=== PATIENT | male | born 1980 | race Caucasian/White ===

== ENCOUNTER 2018-03-06 09:53 | Emergency (ER) | payer MEDICARE, SELFPAY ==
[2018-03-06 09:59] VITALS: BP 140/94; PULSE 105; RESP 20; TEMP 36.5; O2SAT 98
--- NOTE | 2018-03-06 10:23 | W.ED.GENAD ---
Discharge Plan Disposition Patient Disposition: HOME Condition: Improving Discharge Details Chief Complaint: Cellulitis Clinical Impression: Abscess of wrist, Cellulitis of wrist Primary Care Provider: Rosy Quinones ED Provider: Elizabeth Hopkins Home Meds and New Rx's Prescriptions: New clindamycin HCl 150 mg capsule 450 mg PO TID Qty: 63 RF: 0 Continued risperidone 4 MG tablet 8 mg PO BID RF: 0 Discharge Instructions Instructions: Cellulitis (ED), Abscess (ED) Additional Instructions: Keep wound clean, dry, covered. Tylenol and ibuprofen as needed for discomfort. Please elevate extremity to help with swelling and discomfort. Please take antibiotics as prescribed. Even if symptoms improve, please take the entire course. You have an appointment with primary care on Friday at 5:15 PM with Andreas Hahn for reevaluation. If you are unable to make this appointment, please call the office to reschedule [phone] If you develop spreading of the redness, fevers or chills, increased pain or the new/worsening symptoms please seek care urgently once again. Referrals: Rosy Quinones [Primary Care Provider] - Discharge Data Discharge Date/Time-TO BE ENTERED AT DEPARTURE: 03/06/18 11:48 Medical Decision Making This is a 37-year-old wgpso-xolp-nikftqoy male presenting today with chief complaint of erythema, swelling and pain over the radial side of the left wrist. He reports that one week ago he injected Suboxone onto the radial aspect of the right afflicted wrist. Noted over the past few days increasing discomfort and swelling. States that when he woke this morning he noted a focal area of swelling, clinically consistent with an abscess, over the radial aspect of the left wrist. He denies any fevers or chills. No chest pain. Denies any recent illness. States that he had similar infection in the left AC recently which opened spontaneously. No streaking. No systemic illness. Exam, patient has a localized area of erythema and fluctuance over the radial side of the left wrist. Swelling does extend over the dorsal aspect of the hand, erythema is localized over the wrist and does not extend into the hand. No swelling or abnormality over the volar side. This does seem to spare the forearm. I do not see any proximal migration of symptoms. Passive range of motion of all of his digits are without any acute findings. Patient tolerates this well. Plan to drain the abscess. I did evaluate this with an ultrasound I do see a focal area of fluid collection. Discussed this plan with the patient. He has had this completed in the past and is well aware of the procedure. Patient is allergic to penicillins and sulfa drugs. Discussed risks/benefit of I&D procedure as well as expected procedural steps. He voices understanding and wishes to proceed. Please see procedure note, this was performed using standard sterile technique. Loculations were broken up with clamp, abscess was irrigated. Copious amounts of pus was draining from the wound. He tolerated this well. Sterile dressing was placed over the Patient will be placed on oral clindamycin. Patient and I discussed wound care in depth. Advised that he elevate his extremity. He was given very strict return precuations. He is able to return urgently if symptoms owrsen. He will keep current dressing on utnil tomorrow, was given dressing instructions. Advised he wash with soap and water. Contacted PCP for appointment for wound check. Tylenol and/or Motrin as needed for discomfort. Will take abx as advised. Patient plans to discuss his addiction issues further with his PCP, reports he will not inject any further. All of his quesitons and concerns were addressed, he is in agreement with this plan. HPI General Mode of arrival: ambulatory. Date/Time Provider Initiated Documentation: 03/06/18 10:07. Limitations to Documentation: no limitations. Information obtained by: patient. History of Present Illness 37 year old M presents to the emergency department with the chief complaint of infection left wrist, described as severe, with intensity rated at 10. Quality is described as aching, and is localized to the left and upper extremity. Patient reports no radiation. Patient started experiencing this day(s) and it has been constant. No relieving factors improve symptom(s), Movement worsens symptoms . Patient notes rash; denies chest pain, cough, fever/chills and nausea/vomiting. Patient did receive the following treatments prior to arrival, none Related Data Home Medications Medication Instructions Recorded Confirmed risperidone 8 mg PO BID 12/26/15 03/06/18 clindamycin HCl 450 mg PO TID #63 cap 03/06/18 Previous Rx's Medication Instructions Recorded clindamycin HCl 450 mg PO TID #63 cap 03/06/18 Allergies Allergy/AdvReac Type Severity Reaction Status Date / Time amoxicillin Allergy Severe Anaphylaxsi Unverified 12/26/15 15:41 s Penicillins Allergy Severe Anaphylaxsi Unverified 12/26/15 15:41 s shrimp Allergy Severe Anaphylaxsi Unverified 12/26/15 15:41 s Sulfa (Sulfonamide Allergy Unverified 03/06/18 10:03 Antibiotics) aspirin AdvReac Mild Unverified 12/26/15 15:41 General Stated Complaint: Cellulitis CHAVEZ: 3 Review of Systems Constitutional Reports as per HPI, Denies chills and Denies fever(s) Cardiovascular Reports as per HPI Respiratory Reports as per HPI Musculoskeletal Reports as per HPI Integumentary/Breasts Reports as per HPI Neurologic Reports as per HPI, Denies sensory deficit and Denies paresthesias [facility] Social History Smoking/Tobacco Use Status: Current every day Exam Const General: cooperative, healthy appearing, comfortable, no acute distress and well developed Nutritional Appearance: average body habitus and well nourished Orientation: alert and awake Resp Effort & Inspection: normal respiratory effort, able to speak in complete sentences and no respiratory distress Auscultation: clear to auscultation bilaterally Cardio Rate: regular rate Rhythm: regular rhythm Heart Sounds: S1 normal and S2 normal Neuro General: alert and awake Cognition: normal cognition Speech: speech normal Gait: normal gait Sensory Exam: no sensory deficits noted Extrem Left upper extremity: full ROM (passive ROM without significant pain. Pain greater with active ROM), normal capillary refill, edema (to dorsal hand, no erythema over this area. Fingers spared) and wrist Details: abnormal to inspection Details: erythema, tenderness Location: of the distal radius, swelling Location: of the dorsal wrist (dorsal radial side with erythema), warmth (radial side) Location: of the dorsal wrist and normal vascular exam; abnormal to inspection (abscess to radial side of wrist), no cyanosis (erythema is localized to radial side of wrist) and joint enlargement noted (swelling to the radial side of the wrist, extending over the dorsal aspect ) Psych Appearance: grossly normal and well kempt Mental Status: mental status grossly normal Speech and Movement: speech and movement normal Course Vital Signs Temperature 36.5 C 03/06/18 09:59 Pulse 105 H 03/06/18 09:59 Respiratory Rate 20 03/06/18 09:59 Blood Pressure 140/94 H 03/06/18 09:59 Pulse Oximetry 98 03/06/18 09:59 Temperature 36.5 C 03/06/18 09:59 Temperature Source Skin 03/06/18 09:59 Pulse 105 H 03/06/18 09:59 Respiratory Rate 20 03/06/18 09:59 Respiratory Effort 03/06/18 10:01 Blood Pressure 140/94 H 03/06/18 09:59 Blood Pressure Position Sitting 03/06/18 09:59 Pulse Oximetry 98 03/06/18 09:59 Oxygen Delivery Method Room Air 03/06/18 09:59 Oxygen Flow Rate 0 03/06/18 09:59 Pain Level 10 03/06/18 09:59 Procedures Abscess I/D Site: Upper Extremity Side (if applicable): Left Local Anesthetic: Lidocaine 1% Amount of anesthesia used (mL): 3 Technique: Incised with #11 Blade Amount of fluid expressed (mL): 4 Irrigation: Yes Packing used?: None
--- NOTE | 2018-03-06 10:29 | ED.GENADUL_ITS ---
Discharge Plan Disposition Patient Disposition: HOME Condition: Improving Discharge Details Chief Complaint: Cellulitis Clinical Impression: Abscess of wrist, Cellulitis of wrist Primary Care Provider: Rosy Quinones ED Provider: Elizabeth Hopkins Home Meds and New Rx's Prescriptions: New clindamycin HCl 150 mg capsule 450 mg PO TID Qty: 63 RF: 0 Continued risperidone 4 MG tablet 8 mg PO BID RF: 0 Discharge Instructions Instructions: Cellulitis (ED), Abscess (ED) Additional Instructions: Keep wound clean, dry, covered. Tylenol and ibuprofen as needed for discomfort. Please elevate extremity to help with swelling and discomfort. Please take antibiotics as prescribed. Even if symptoms improve, please take the entire course. You have an appointment with primary care on Friday at 5:15 PM with Andreas Hahn for reevaluation. If you are unable to make this appointment, please call the office to reschedule [phone] If you develop spreading of the redness, fevers or chills, increased pain or the new/worsening symptoms please seek care urgently once again. Referrals: Rosy Quinones [Primary Care Provider] - Discharge Data Discharge Date/Time-TO BE ENTERED AT DEPARTURE: 03/06/18 11:48 Medical Decision Making This is a 37-year-old ubabj-swxs-uxtsvnir male presenting today with chief complaint of erythema, swelling and pain over the radial side of the left wrist. He reports that one week ago he injected Suboxone onto the radial aspect of the right afflicted wrist. Noted over the past few days increasing discomfort and swelling. States that when he woke this morning he noted a focal area of swelling, clinically consistent with an abscess, over the radial aspect of the left wrist. He denies any fevers or chills. No chest pain. Denies any recent illness. States that he had similar infection in the left AC recently which opened spontaneously. No streaking. No systemic illness. Exam, patient has a localized area of erythema and fluctuance over the radial side of the left wrist. Swelling does extend over the dorsal aspect of the hand, erythema is localized over the wrist and does not extend into the hand. No swelling or abnormality over the volar side. This does seem to spare the forearm. I do not see any proximal migration of symptoms. Passive range of motion of all of his digits are without any acute findings. Patient tolerates this well. Plan to drain the abscess. I did evaluate this with an ultrasound I do see a focal area of fluid collection. Discussed this plan with the patient. He has had this completed in the past and is well aware of the procedure. Patient is allergic to penicillins and sulfa drugs. Discussed risks/benefit of I&D procedure as well as expected procedural steps. He voices understanding and wishes to proceed. Please see procedure note, this was performed using standard sterile technique. Loculations were broken up with clamp, abscess was irrigated. Copious amounts of pus was draining from the wound. He tolerated this well. Sterile dressing was placed over the Patient will be placed on oral clindamycin. Patient and I discussed wound care in depth. Advised that he elevate his extremity. He was given very strict return precuations. He is able to return urgently if symptoms owrsen. He will keep current dressing on utnil tomorrow, was given dressing instructions. Advised he wash with soap and water. Contacted PCP for appointment for wound check. Tylenol and/or Motrin as needed for discomfort. Will take abx as advised. Patient plans to discuss his addiction issues further with his PCP, reports he will not inject any further. All of his quesitons and concerns were addressed, he is in agreement with this plan. HPI General Mode of arrival: ambulatory . Date/Time Provider Initiated Documentation: 03/06/18 10:07 . Limitations to Documentation: no limitations . Information obtained by: patient . History of Present Illness 37 year old M presents to the emergency department with the chief complaint of infection left wrist, described as severe, with intensity rated at 10. Quality is described as aching, and is localized to the left and upper extremity. Patient reports no radiation. Patient started experiencing this day(s) and it has been constant. No relieving factors improve symptom(s), Movement worsens symptoms . Patient notes rash; denies chest pain, cough, fever/chills and nausea/vomiting. Patient did receive the following treatments prior to arrival, none Related Data Home Medications Medication Instructions Recorded Confirmed risperidone 8 mg PO BID 12/26/15 03/06/18 clindamycin HCl 450 mg PO TID #63 cap 03/06/18 Previous Rx's Medication Instructions Recorded clindamycin HCl 450 mg PO TID #63 cap 03/06/18 Allergies Allergy/AdvReac Type Severity Reaction Status Date / Time amoxicillin Allergy Severe Anaphylaxsi Unverified 12/26/15 15:41 s Penicillins Allergy Severe Anaphylaxsi Unverified 12/26/15 15:41 s shrimp Allergy Severe Anaphylaxsi Unverified 12/26/15 15:41 s Sulfa (Sulfonamide Allergy Unverified 03/06/18 10:03 Antibiotics) aspirin AdvReac Mild Unverified 12/26/15 15:41 General Stated Complaint: Cellulitis CHAVEZ: 3 Review of Systems Constitutional Reports as per HPI, Denies chills and Denies fever(s) Cardiovascular Reports as per HPI Respiratory Reports as per HPI Musculoskeletal Reports as per HPI Integumentary/Breasts Reports as per HPI Neurologic Reports as per HPI, Denies sensory deficit and Denies paresthesias [facility] Social History Smoking/Tobacco Use Status: Current every day Exam Const General: cooperative, healthy appearing, comfortable, no acute distress and well developed Nutritional Appearance: average body habitus and well nourished Orientation: alert and awake Resp Effort & Inspection: normal respiratory effort, able to speak in complete sentences and no respiratory distress Auscultation: clear to auscultation bilaterally Cardio Rate: regular rate Rhythm: regular rhythm Heart Sounds: S1 normal and S2 normal Neuro General: alert and awake Cognition: normal cognition Speech: speech normal Gait: normal gait Sensory Exam: no sensory deficits noted Extrem Left upper extremity: full ROM (passive ROM without significant pain. Pain greater with active ROM), normal capillary refill, edema (to dorsal hand, no erythema over this area. Fingers spared) and wrist Details: abnormal to inspection Details: erythema, tenderness Location: of the distal radius, swelling Location: of the dorsal wrist (dorsal radial side with erythema), warmth (radial side) Location: of the dorsal wrist and normal vascular exam; abnormal to inspection (abscess to radial side of wrist), no cyanosis (erythema is localized to radial side of wrist) and joint enlargement noted (swelling to the radial side of the wrist, extending over the dorsal aspect ) Psych Appearance: grossly normal and well kempt Mental Status: mental status grossly normal Speech and Movement: speech and movement normal Course Vital Signs Temperature 36.5 C 03/06/18 09:59 Pulse 105 H 03/06/18 09:59 Respiratory Rate 20 03/06/18 09:59 Blood Pressure 140/94 H 03/06/18 09:59 Pulse Oximetry 98 03/06/18 09:59 Temperature 36.5 C 03/06/18 09:59 Temperature Source Skin 03/06/18 09:59 Pulse 105 H 03/06/18 09:59 Respiratory Rate 20 03/06/18 09:59 Respiratory Effort 03/06/18 10:01 Blood Pressure 140/94 H 03/06/18 09:59 Blood Pressure Position Sitting 03/06/18 09:59 Pulse Oximetry 98 03/06/18 09:59 Oxygen Delivery Method Room Air 03/06/18 09:59 Oxygen Flow Rate 0 03/06/18 09:59 Pain Level 10 03/06/18 09:59 Procedures Abscess I/D Site: Upper Extremity Side (if applicable): Left Local Anesthetic: Lidocaine 1% Amount of anesthesia used (mL): 3 Technique: Incised with #11 Blade Amount of fluid expressed (mL): 4 Irrigation: Yes Packing used?: None
[2018-03-06] MEDS: Lidocaine 1% Multi-Dose 50 ML VIAL IJ (10:42)
[2018-03-06] MEDS: Lidocaine/Epinephri/Tetracaine Topical Gel 3 ML TP (10:42)
[2018-03-06] MEDS: Clindamycin 150 MG CAP 450 MG PO (11:42)
== END 2018-03-06 11:48 | disposition home or self-care (01) ==
PROVIDERS: Emergency Provider Physician Assistant; PCP Nurse Practitioner Adult Health
DX: L02.414 Cutaneous abscess of left upper limb (principal); L03.114 Cellulitis of left upper limb
CPT/HCPCS: 10060

== ENCOUNTER 2018-03-16 09:33 | Inpatient (IN) | payer MEDICARE, SELFPAY ==
[2018-03-16] VITALS (8 sets, daily range): BP systolic 145–166; BP diastolic 90–107; PULSE 81–121; RESP 16–18; TEMP 36.7–38.7; O2SAT 96–99
--- NOTE | 2018-03-16 09:53 | W.ED.GENAD ---
Discharge Plan Disposition Patient Disposition: [facility] INPATIENT Condition: Improving Discharge Details Chief Complaint: Cellulitis Clinical Impression: Abscess or cellulitis of wrist Reason For Visit: SEPSOS DUE TO CELLULITIS/ABSCESS NIMA Admit Date/Time: 03/16/18 12:24 Admit Provider: Deidre Peralta Attending Provider: Deidre Peralta Primary Care Provider: Andreas Hahn ED Provider: Elizabeth Hopkins Discharge Data Discharge Date/Time-TO BE ENTERED AT DEPARTURE: 03/16/18 13:41 Medical Decision Making Patient is a 37-year-old zazap-czgo-hagmuihv male presenting today with recurrent cellulitis and abscess formation to the left wrist. Patient was seen by myself 11 days ago at which time an abscess was drained along the radial side of the wrist and patient was treated with clindamycin. At that point, the erythema seemed quite localized. The initial abscess was secondary to the patient's injection of illicit street drugs. He states that he noted a recurrence of symptoms approximately 3 days ago. He did finish his entire course of clindamycin. Had stated that initially he was feeling much improved. However, he now has a secondary abscess more on the dorsal aspect proximal to the initial over the left wrist. Surrounding erythema, warmth. No active drainage. He denies any fevers or chills. Patient is tachycardic with a heart rate of 121. Currently afebrile. Reports he has been taking ibuprofen to help with his discomfort, last took this at 6:00 this morning. Erythema seems more diffuse at this point, as he clearly had a recurrence of his symptoms, I feel that treatment with vancomycin at this point is appropriate. Discussed this plan with the patient who is in agreement. We will need to open this abscess as well. Patient did tolerate the procedure well on the last attempt. I discussed risks and benefits as well as expected procedural steps once again. Patient voiced understanding and wished to proceed. Patient started on IV Vancomycin, given IV hydration. WBC 16.85, K 3.2, lactate 1.9. XR reviewed by radiologist: Two views were obtained. No bony abnormality or foreign body identified. Procedure note: please see above. Patient has a large abscess with copious amount of discharge expressed. Loculations were broken up, abscess was flushed with saline. When probing for loculations, tunneling was noted, particularly to the radial side. this was then packed with plain packing. He tolerated this well. Dressing applied. Given the progression of symptoms and recurrence of symptoms after outpatient therapy, plan to admit patient for continued IV antibiotics. Consulted with Dr. Peralta who agrees to admission. Discused plan with the patient who is in agreement. HPI General Mode of arrival: ambulatory. Date/Time Provider Initiated Documentation: 03/16/18 09:52. Limitations to Documentation: no limitations. Information obtained by: patient. History of Present Illness 37 year old M presents to the emergency department with the chief complaint of abscess left wrist, described as severe, with intensity rated at 10. Quality is described as burning, and is localized to the left and upper extremity. Patient proximal. Patient started experiencing this day(s) (3) and it has been constant. No relieving factors improve symptom(s), No exacerbating factors reported . Patient notes rash (celllitis); denies chest pain, cough, fever/chills and headaches. Patient did receive the following treatments prior to arrival, none Related Data Home Medications Medication Instructions Recorded Confirmed risperidone 4 mg PO BID 03/16/18 03/16/18 Allergies Allergy/AdvReac Type Severity Reaction Status Date / Time amoxicillin Allergy Severe Anaphylaxsi Unverified 12/26/15 15:41 s Penicillins Allergy Severe Anaphylaxsi Unverified 12/26/15 15:41 s shrimp Allergy Severe Anaphylaxsi Unverified 12/26/15 15:41 s Sulfa (Sulfonamide Allergy Unverified 03/06/18 10:03 Antibiotics) aspirin AdvReac Mild Unverified 12/26/15 15:41 General Stated Complaint: Cellulitis CHAVEZ: 3 Review of Systems Constitutional Reports as per HPI, Denies chills, Denies fever(s), Denies headache(s), Denies lethargy and Denies poor appetite Eyes Denies change in vision ENT Denies headache(s) Cardiovascular Reports as per HPI, Denies chest pain, Denies chest pain with activity, Denies diaphoresis, Denies syncope, Denies palpitations, Denies dyspnea and Denies dyspnea on exertion Respiratory Denies dyspnea, Denies dyspnea on exertion and Denies wheezing Gastrointestinal Reports as per HPI, Denies abdominal pain, Denies diarrhea, Denies nausea and Denies vomiting Genitourinary Denies system reviewed and no additional complaints, except as docu (denies change in urinary habits) Musculoskeletal Reports as per HPI, Denies back pain, Reports joint swelling and Reports limited range of motion Integumentary/Breasts Reports as per HPI, Reports erythema, Reports skin pain and Reports skin swelling Neurologic Denies syncope and Denies headache(s) Endocrine Denies palpitations Allergic/Immunologic Denies wheezing [facility] Medical History Abscess of left upper extremity (Acute) IV drug user (Acute) Polysubstance abuse (Acute) Bipolar disorder (Chronic) Schizoaffective disorder, chronic condition (Suspected) Surgical History Surgical complication involving left eye (Suspected) History of repair of anterior cruciate ligament of right knee (Resolved) Status post incision and drainage (Resolved) Family History Other Diabetes Heart disease Social History Smoking/Tobacco Use Status: Current every day tobacco type: cigarettes counseling given: provider counseling, support medications and counseling >3 minutes alcohol intake: former substance use type: heroin, opiates, painkillers, IV drugs, methamphetamine and prescription drug counseling given: Yes counseling provided: provider counseling Exam Const General: cooperative, healthy appearing, comfortable, no acute distress and well developed Nutritional Appearance: average body habitus and well nourished Orientation: alert, awake and oriented x3 HENMT Head: normal to inspection Ears: hearing grossly normal bilaterally Mouth: moist mucous membranes Resp Effort & Inspection: normal respiratory effort, able to speak in complete sentences and no respiratory distress Auscultation: clear to auscultation bilaterally, no rales, no rhonchi and no wheezes Cardio Rate: regular rate Rhythm: regular rhythm Heart Sounds: S1 normal and S2 normal Skin General skin exam: erythema (dorsal aspect of left wrist, extending proximally), fluctuance (notable abscess dorsal aspect left wrist) and induration (tissue surrounding abscess) Neuro General: alert, awake and oriented x3 Cognition: normal cognition Speech: speech normal Gait: normal gait Extrem Left upper extremity: normal capillary refill and edema; ROM limited (limited ROM of wrist) Elbow/forearm/wrist images: 1. area of erythema 2. abscess Psych Appearance: grossly normal and well kempt Mental Status: mental status grossly normal Speech and Movement: speech and movement normal Course Vital Signs Temperature 37 C 03/16/18 09:38 Pulse 121 H 03/16/18 09:38 Respiratory Rate 16 03/16/18 09:38 Blood Pressure 147/107 H 03/16/18 09:38 Pulse Oximetry 98 03/16/18 09:38 Temperature 37 C 03/16/18 09:38 Temperature Source Skin 03/16/18 09:38 Pulse 121 H 03/16/18 09:38 Respiratory Rate 16 03/16/18 09:38 Blood Pressure 147/107 H 03/16/18 09:38 Pulse Oximetry 98 03/16/18 09:38 Oxygen Delivery Method Nasal Cannula 03/16/18 09:38 Pain Level 10 03/16/18 09:38 Procedures Abscess I/D Site: Upper Extremity Side (if applicable): Left Sedation/analgesia: None Local Anesthetic: Lidocaine 2% Amount of anesthesia used (mL): 4 Technique: Incised with #11 Blade Amount of fluid expressed (mL): 15 Irrigation: Yes Packing used?: Plain Complications: Bleeding (3cc estimate)
--- NOTE | 2018-03-16 10:03 | ED.GENADUL_ITS ---
Discharge Plan Disposition Patient Disposition: [facility] INPATIENT Condition: Improving Discharge Details Chief Complaint: Cellulitis Clinical Impression: Abscess or cellulitis of wrist Reason For Visit: SEPSOS DUE TO CELLULITIS/ABSCESS NIMA Admit Date/Time: 03/16/18 12:24 Admit Provider: Deidre Peralta Attending Provider: Deidre Peralta Primary Care Provider: Andreas Hahn ED Provider: Elizabeth Hopkins Discharge Data Discharge Date/Time-TO BE ENTERED AT DEPARTURE: 03/16/18 13:41 Medical Decision Making Patient is a 37-year-old [id number] male presenting today with recurrent cellulitis and abscess formation to the left wrist. Patient was seen by myself 11 days ago at which time an abscess was drained along the radial side of the wrist and patient was treated with clindamycin. At that point, the erythema seemed quite localized. The initial abscess was secondary to the patient's injection of illicit street drugs. He states that he noted a recurrence of symptoms approximately 3 days ago. He did finish his entire course of clindamycin. Had stated that initially he was feeling much improved. However, he now has a secondary abscess more on the dorsal aspect proximal to the initial over the left wrist. Surrounding erythema, warmth. No active drainage. He denies any fevers or chills. Patient is tachycardic with a heart rate of 121. Currently afebrile. Reports he has been taking ibuprofen to help with his discomfort, last took this at 6:00 this morning. Erythema seems more diffuse at this point, as he clearly had a recurrence of his symptoms, I feel that treatment with vancomycin at this point is appropriate. Discussed this plan with the patient who is in agreement. We will need to open this abscess as well. Patient did tolerate the procedure well on the last attempt. I discussed risks and benefits as well as expected procedural steps once again. Patient voiced understanding and wished to proceed. Patient started on IV Vancomycin, given IV hydration. WBC 16.85, K 3.2, lactate 1.9. XR reviewed by radiologist: Two views were obtained. No bony abnormality or foreign body identified. Procedure note: please see above. Patient has a large abscess with copious amount of discharge expressed. Loculations were broken up, abscess was flushed with saline. When probing for loculations, tunneling was noted, particularly to the radial side. this was then packed with plain packing. He tolerated this well. Dressing applied. Given the progression of symptoms and recurrence of symptoms after outpatient therapy, plan to admit patient for continued IV antibiotics. Consulted with Dr. Peralta who agrees to admission. Discused plan with the patient who is in agreement. HPI General Mode of arrival: ambulatory . Date/Time Provider Initiated Documentation: 03/16/18 09:52 . Limitations to Documentation: no limitations . Information obtained by: patient . History of Present Illness 37 year old M presents to the emergency department with the chief complaint of abscess left wrist, described as severe, with intensity rated at 10. Quality is described as burning, and is localized to the left and upper extremity. Patient proximal. Patient started experiencing this day(s) (3) and it has been constant. No relieving factors improve symptom(s), No exacerbating factors reported . Patient notes rash (celllitis); denies chest pain, cough, fever/chills and headaches. Patient did receive the following treatments prior to arrival, none Related Data Home Medications Medication Instructions Recorded Confirmed risperidone 4 mg PO BID 03/16/18 03/16/18 Allergies Allergy/AdvReac Type Severity Reaction Status Date / Time amoxicillin Allergy Severe Anaphylaxsi Unverified 12/26/15 15:41 s Penicillins Allergy Severe Anaphylaxsi Unverified 12/26/15 15:41 s shrimp Allergy Severe Anaphylaxsi Unverified 12/26/15 15:41 s Sulfa (Sulfonamide Allergy Unverified 03/06/18 10:03 Antibiotics) aspirin AdvReac Mild Unverified 12/26/15 15:41 General Stated Complaint: Cellulitis CHAVEZ: 3 Review of Systems Constitutional Reports as per HPI, Denies chills, Denies fever(s), Denies headache(s), Denies lethargy and Denies poor appetite Eyes Denies change in vision ENT Denies headache(s) Cardiovascular Reports as per HPI, Denies chest pain, Denies chest pain with activity, Denies diaphoresis, Denies syncope, Denies palpitations, Denies dyspnea and Denies dyspnea on exertion Respiratory Denies dyspnea, Denies dyspnea on exertion and Denies wheezing Gastrointestinal Reports as per HPI, Denies abdominal pain, Denies diarrhea, Denies nausea and Denies vomiting Genitourinary Denies system reviewed and no additional complaints, except as docu (denies change in urinary habits) Musculoskeletal Reports as per HPI, Denies back pain, Reports joint swelling and Reports limited range of motion Integumentary/Breasts Reports as per HPI, Reports erythema, Reports skin pain and Reports skin swelling Neurologic Denies syncope and Denies headache(s) Endocrine Denies palpitations Allergic/Immunologic Denies wheezing [facility] Medical History Abscess of left upper extremity (Acute) IV drug user (Acute) Polysubstance abuse (Acute) Bipolar disorder (Chronic) Schizoaffective disorder, chronic condition (Suspected) Surgical History Surgical complication involving left eye (Suspected) History of repair of anterior cruciate ligament of right knee (Resolved) Status post incision and drainage (Resolved) Family History Other Diabetes Heart disease Social History Smoking/Tobacco Use Status: Current every day tobacco type: cigarettes counseling given: provider counseling, support medications and counseling >3 minutes alcohol intake: former substance use type: heroin, opiates, painkillers, IV drugs, methamphetamine and prescription drug counseling given: Yes counseling provided: provider counseling Exam Const General: cooperative, healthy appearing, comfortable, no acute distress and well developed Nutritional Appearance: average body habitus and well nourished Orientation: alert, awake and oriented x3 HENMT Head: normal to inspection Ears: hearing grossly normal bilaterally Mouth: moist mucous membranes Resp Effort & Inspection: normal respiratory effort, able to speak in complete sentences and no respiratory distress Auscultation: clear to auscultation bilaterally, no rales, no rhonchi and no wheezes Cardio Rate: regular rate Rhythm: regular rhythm Heart Sounds: S1 normal and S2 normal Skin General skin exam: erythema (dorsal aspect of left wrist, extending proximally), fluctuance (notable abscess dorsal aspect left wrist) and induration (tissue surrounding abscess) Neuro General: alert, awake and oriented x3 Cognition: normal cognition Speech: speech normal Gait: normal gait Extrem Left upper extremity: normal capillary refill and edema; ROM limited (limited ROM of wrist) Elbow/forearm/wrist images: 1. area of erythema 2. abscess Psych Appearance: grossly normal and well kempt Mental Status: mental status grossly normal Speech and Movement: speech and movement normal Course Vital Signs Temperature 37 C 03/16/18 09:38 Pulse 121 H 03/16/18 09:38 Respiratory Rate 16 03/16/18 09:38 Blood Pressure 147/107 H 03/16/18 09:38 Pulse Oximetry 98 03/16/18 09:38 Temperature 37 C 03/16/18 09:38 Temperature Source Skin 03/16/18 09:38 Pulse 121 H 03/16/18 09:38 Respiratory Rate 16 03/16/18 09:38 Blood Pressure 147/107 H 03/16/18 09:38 Pulse Oximetry 98 03/16/18 09:38 Oxygen Delivery Method Nasal Cannula 03/16/18 09:38 Pain Level 10 03/16/18 09:38 Procedures Abscess I/D Site: Upper Extremity Side (if applicable): Left Sedation/analgesia: None Local Anesthetic: Lidocaine 2% Amount of anesthesia used (mL): 4 Technique: Incised with #11 Blade Amount of fluid expressed (mL): 15 Irrigation: Yes Packing used?: Plain Complications: Bleeding (3cc estimate)
[2018-03-16] MEDS: VANCOMYCIN 1,500 MG in Normal Saline 500 ML 333.3333 MG IVPB (11:00)
[2018-03-16 11:07] LABS: Lactate-non-spesis 1.9 mmol/L (0.6-1.4)
[2018-03-16 11:09] LABS: Abs Immature Grans 0.04 k/cumm (0.0-0.09); Absolute Basophil Count 0.03 k/cumm (0.0-0.2); Absolute Eosinophil Count 0.08 k/cumm (0.0-0.7); Absolute Lymphocyte Count 1.62 k/cumm (1.2-3.4); Absolute Monocyte Count 1.16 k/cumm (0.11-0.7); Absolute Neutrophil Count 13.65 k/cumm (1.2-6.7); Basophils % 0.2; Eosinophils % 0.5; HCT 36.5 % (40.0-50.0); HGB 12.6 g/dL (13.5-17.5); Immature Grans % 0.2; Lymphocytes % 9.8; Mean Corp. HGB Concentration 34.5 g/dL (32.0-36.0); Mean Corpuscular Hemoglobin 27.3 pg (27.0-33.0); Mean Platelet Volume 8.7 fL (8.0-11.0); Neutrophils % 82.3; Platelet Count 401 x1000/uL (130-400); RBC 4.62 m/cumm (4.50-6.00); RBC Distribution Width 12.5 % (11.8-14.1); White Blood Cell Count 16.58 k/cumm (4.4-10.8)
[2018-03-16 11:18] LABS: ALT 17 U/L (12-78); AST 13 U/L (15-37); Alkaline Phosphatase 70 U/L (46-116); Anion Gap 10.8 mmol/L (3-11); BUN 14 mg/dL (7-18); Bilirubin, Total 0.5 mg/dL (0.2-1.0); CO2 25.2 mmol/L (21.0-32.0); CREATININE 0.89 mg/dL (0.70-1.30); Chloride 102 mmol/L (98-107); Glucose 127 mg/dL (70-100); Potassium 3.2 mmol/L (3.5-5.1); Sodium 138 mmol/L (136-145); Total Protein 7.5 g/dL (6.4-8.2)
--- NOTE | 2018-03-16 11:29 | DI.RAD_ITS ---
SYMPTOMS/DIAGNOSIS: RECURRENT INFECTION, IV DRUG ABUSE, ? FOREIGN BODY LEFT FOREARM: Two views were obtained. No bony abnormality or foreign body identified.
[2018-03-16] MEDS: Normal Saline 1,000 ML 1000 ML IV (11:31)
[2018-03-16] MEDS: POTASSIUM CHLORIDE 20 MEQ, POTASSIUM CHLORIDE 10 MEQ 30 MEQ PO (12:24)
[2018-03-16] MEDS: Normal Saline 1,000 ML 150 ML IV (13:55)
[2018-03-16 14:42] LABS: ETHANOL BLOOD < 3.0 mg/dL (<3)
[2018-03-16] MEDS: LEVOFLOXACIN 500 MG/100 ML BAG 100 MG IVPB (15:02)
[2018-03-16] MEDS: Acetaminophen 325 MG TAB PO ×2 (15:11→19:46)
[2018-03-16 15:28] LABS: *AMPHETAMINES SCREEN URINE Negative (Negative); *BARBITURATES SCREEN URINE Negative (Negative); *BENZODIAZEPINES SCREEN URINE Negative (Negative); Cannabinoids THC POSITIVE (Negative); Cocaine Screen,Urine Negative (Negative); METHADONE URINE SCREEN Negative (Negative); OPIATES URINE SCREEN Negative (Negative)
[2018-03-16 15:30] LABS: Tricyclic Antidepressants Negative (Negative)
--- NOTE | 2018-03-16 17:44 | W.PM.HP.N ---
Date of service: 03/16/18 Time of Service: 17:44 Assessment and Plan (1) Sepsis: Current visit: Yes Status: Acute Due to abscess/cellulitis of L wrist in setting of known IV drug abuse. Blood cultures are pending. Patient was initiated on vancomycin/levofloxacin and aggressive IV fluids. Wound culture was not done in ER - at this point, as the wound is packed, it would be less useful. Follow clinically. Monitor CRP. Check HIV. Qualifiers: Sepsis type: sepsis due to unspecified organism Qualified Code(s): A41.9 - Sepsis, unspecified organism (2) Abscess or cellulitis of wrist: Current visit: Yes Status: Acute As above. At this point, no signs to point to compartment syndrome. Will monitor clinically. (3) Hypomagnesemia: Current visit: Yes Status: Acute replete (4) Hypokalemia: Current visit: Yes Status: Acute replete (5) IV drug abuse: Current visit: Yes Status: Chronic Checking HIV status as well as hepatitis serologies. Avoid narcotic medications. Monitor for withdrawal. (6) Methamphetamine abuse: Current visit: Yes Status: Chronic Monitor for withdrawal. (7) Bipolar disorder: Current visit: Yes Status: Chronic Continue home risperidone. (8) Tobacco abuse: Current visit: Yes Status: Chronic Counselled on quitting. For now, will provide nicotrol inhaler. (9) DVT prophylaxis: Current visit: Yes Status: Acute Not required in an ambulatory 37 year old patient. (10) Discharge planning issues: Current visit: Yes Status: Acute Full code. Depending on blood culture results, we will determine the need for senior care intravenous antibiotics. History of Present Illness Chief Complaint: Left hand swelling, redness and pain Narrative: Mr Jackson is a 37 year old male with PMHx of IV drug use, a recent abscess of Radial L wrist requiring I&D at the [facility] ED on 03/06/18, having completed an outpatient course of clindamycin with significant improvement, as well as bipolar disorder and a question of schizophrenia vs schizoaffective disorder (the patient is not sure), who presented to [facility] ED again today complaining of worsening L wrist pain with a new abscess forming. The abscess was I&D'ed in the ER, but because the patient appeared quite clinically ill and had a leucocytosis as well as an area of surrounding cellulitis, we were asked to admit the patient for further evaluation and treatment. The patient denies any numbness or tingling in his left hand. He does have pain on moving his left wrist, but he is able to move it. He has been taking ibuprofen 800 mg every 4 -6 hours at home for the pain. He does not think he has had a fever. He states he last used IV drugs 2-3 weeks ago. He also uses crystal meth, last having used 2 weeks ago. His IV drug of choice is suboxone. He consents to HIV and Hepatitis testing. Review of Systems Review of Systems 12 systems reviewed. Pertinent positives and negatives are as per HPI. [facility] Medical History Abscess of left upper extremity (Acute) IV drug user (Acute) Polysubstance abuse (Acute) Bipolar disorder (Chronic) Schizoaffective disorder, chronic condition (Suspected) Surgical History Surgical complication involving left eye (Suspected) History of repair of anterior cruciate ligament of right knee (Resolved) Status post incision and drainage (Resolved) Family History Other Diabetes Heart disease Social History Smoking/Tobacco Use Status: Current every day tobacco type: cigarettes counseling given: provider counseling, support medications and counseling >3 minutes alcohol intake: former substance use type: heroin, opiates, painkillers, IV drugs, methamphetamine and prescription drug counseling given: Yes counseling provided: provider counseling Meds Home Medications Medication Instructions Recorded Confirmed Type risperidone 4 mg PO BID 03/16/18 03/16/18 History Allergies Allergy/AdvReac Type Severity Reaction Status Date / Time amoxicillin Allergy Severe Anaphylaxsi Unverified 12/26/15 15:41 s Penicillins Allergy Severe Anaphylaxsi Unverified 12/26/15 15:41 s shrimp Allergy Severe Anaphylaxsi Unverified 12/26/15 15:41 s Sulfa (Sulfonamide Allergy Unverified 03/06/18 10:03 Antibiotics) aspirin AdvReac Mild Unverified 12/26/15 15:41 Exam Narrative Exam Narrative: General: male, unkempt, laying in bed, appears uncomfortable; Left wrist dressed with dressing which is getting saturated Neurological: A&Ox3, no focal deficits Psychiatric: appropriate speech pattern and content, cooperative Skin: Generally unkempt/poor hygiene. Visible injection site in L AC area with mild erythema, but not obviously infected. Tattoos. L wrist is dressed - when dressing is removed, incision on dorsal surface of the wrist is packed with dressing/ sanguenous discharge noted; erythema around the wound is demarcated with permanent marker. HEENT: EOMI, Dry MM, all teeth are broken, poor dental hygiene; no submandibular or cervical lymphadenopathy, no goiter or JVD; clear oropharynx Cardiovascular: RRR, tachycardic, no m/r/g Lungs: CTAB Gastrointestinal: abdomen soft, nontender, nondistended Extremities: no edema, clubbing, or cyanosis of BLE's; L wrist exam as above - limited ROM Results Imaging Additional studies: XR L forearm: Two views were obtained. No bony abnormality or foreign body identified. Labs : 03/16/18 10:50 03/16/18 10:50 Laboratory Results - last 24 hr 03/16/18 03/16/18 03/16/18 10:50 10:50 10:50 WBC 16.58 H RBC 4.62 Hgb 12.6 L Hct 36.5 L MCV 79.0 L MCH 27.3 MCHC 34.5 RDW 12.5 Plt Count 401 H MPV 8.7 Immature Gran % 0.2 Neutrophils % 82.3 Lymphocytes % 9.8 Monocytes % 7.0 Eosinophils % 0.5 Basophils % 0.2 Absolute Neutrophils 13.65 H Absolute Lymphocytes 1.62 Absolute Monocytes 1.16 H Absolute Eosinophils 0.08 Absolute Basophils 0.03 Sodium 138 Potassium 3.2 L Chloride 102 Carbon Dioxide 25.2 Anion Gap 10.8 BUN 14 Creatinine 0.89 Estimated GFR/1.73 m2 >= 60.00 Glucose 127 H Lactate 1.9 H Calcium 9.0 Total Bilirubin 0.5 AST 13 L ALT 17 Alkaline Phosphatase 70 Total Protein 7.5 Albumin 3.0 L Urine Opiates Screen Urine Methadone Screen Ur Barbiturates Screen Ur Tricyclics Screen Ur Amphetamines Screen U Benzodiazepines Scrn Urine Cocaine Screen Ur THC Screen Ethyl Alcohol 03/16/18 03/16/18 14:04 14:22 WBC RBC Hgb Hct MCV MCH MCHC RDW Plt Count MPV Immature Gran % Neutrophils % Lymphocytes % Monocytes % Eosinophils % Basophils % Absolute Neutrophils Absolute Lymphocytes Absolute Monocytes Absolute Eosinophils Absolute Basophils Sodium Potassium Chloride Carbon Dioxide Anion Gap BUN Creatinine Estimated GFR/1.73 m2 Glucose Lactate Calcium Total Bilirubin AST ALT Alkaline Phosphatase Total Protein Albumin Urine Opiates Screen Negative Urine Methadone Screen Negative Ur Barbiturates Screen Negative Ur Tricyclics Screen Negative Ur Amphetamines Screen Negative U Benzodiazepines Scrn Negative Urine Cocaine Screen Negative Ur THC Screen Positive Ethyl Alcohol < 3.0 Last Vital Signs Temp 37.7 C H 03/16/18 17:15 Pulse 95 H 03/16/18 16:33 Resp 17 03/16/18 16:33 BP 165/90 H 03/16/18 16:33 Pulse Ox 97 03/16/18 16:33
--- NOTE | 2018-03-16 17:49 | HPE_ITS ---
Date of service: 03/16/18 Time of Service: 17:44 Assessment and Plan (1) Sepsis: Current visit: Yes Status: Acute Due to abscess/cellulitis of L wrist in setting of known IV drug abuse. Blood cultures are pending. Patient was initiated on vancomycin/levofloxacin and aggressive IV fluids. Wound culture was not done in ER - at this point, as the wound is packed, it would be less useful. Follow clinically. Monitor CRP. Check HIV. Qualifiers: Sepsis type: sepsis due to unspecified organism Qualified Code(s): A41.9 - Sepsis, unspecified organism (2) Abscess or cellulitis of wrist: Current visit: Yes Status: Acute As above. At this point, no signs to point to compartment syndrome. Will monitor clinically. (3) Hypomagnesemia: Current visit: Yes Status: Acute replete (4) Hypokalemia: Current visit: Yes Status: Acute replete (5) IV drug abuse: Current visit: Yes Status: Chronic Checking HIV status as well as hepatitis serologies. Avoid narcotic medications. Monitor for withdrawal. (6) Methamphetamine abuse: Current visit: Yes Status: Chronic Monitor for withdrawal. (7) Bipolar disorder: Current visit: Yes Status: Chronic Continue home risperidone. (8) Tobacco abuse: Current visit: Yes Status: Chronic Counselled on quitting. For now, will provide nicotrol inhaler. (9) DVT prophylaxis: Current visit: Yes Status: Acute Not required in an ambulatory 37 year old patient. (10) Discharge planning issues: Current visit: Yes Status: Acute Full code. Depending on blood culture results, we will determine the need for detention intravenous antibiotics. History of Present Illness Chief Complaint: Left hand swelling, redness and pain Narrative: Mr Jackson is a 37 year old male with PMHx of IV drug use, a recent abscess of Radial L wrist requiring I&D at the [facility] ED on 03/06/18, having completed an outpatient course of clindamycin with significant improvement, as well as bipolar disorder and a question of schizophrenia vs schizoaffective disorder (the patient is not sure), who presented to [facility] ED again today complaining of worsening L wrist pain with a new abscess forming. The abscess was I&D'ed in the ER, but because the patient appeared quite clinically ill and had a leucocytosis as well as an area of surrounding cellulitis, we were asked to admit the patient for further evaluation and treatment. The patient denies any numbness or tingling in his left hand. He does have pain on moving his left wrist, but he is able to move it. He has been taking ibuprofen 800 mg every 4 -6 hours at home for the pain. He does not think he has had a fever. He states he last used IV drugs 2-3 weeks ago. He also uses crystal meth, last having used 2 weeks ago. His IV drug of choice is suboxone. He consents to HIV and Hepatitis testing. Review of Systems Review of Systems 12 systems reviewed. Pertinent positives and negatives are as per HPI. PFS Medical History Abscess of left upper extremity (Acute) IV drug user (Acute) Polysubstance abuse (Acute) Bipolar disorder (Chronic) Schizoaffective disorder, chronic condition (Suspected) Surgical History Surgical complication involving left eye (Suspected) History of repair of anterior cruciate ligament of right knee (Resolved) Status post incision and drainage (Resolved) Family History Other Diabetes Heart disease Social History Smoking/Tobacco Use Status: Current every day tobacco type: cigarettes counseling given: provider counseling, support medications and counseling >3 mi nutes alcohol intake: former substance use type: heroin, opiates, painkillers, IV drugs, methamphetamine and prescription drug counseling given: Yes counseling provided: provider counseling Meds Home Medications Medication Instructions Recorded Confirmed Type risperidone 4 mg PO BID 03/16/18 03/16/18 History Allergies Allergy/AdvReac Type Severity Reaction Status Date / Time amoxicillin Allergy Severe Anaphylaxsi Unverified 12/26/15 15:41 s Penicillins Allergy Severe Anaphylaxsi Unverified 12/26/15 15:41 s shrimp Allergy Severe Anaphylaxsi Unverified 12/26/15 15:41 s Sulfa (Sulfonamide Allergy Unverified 03/06/18 10:03 Antibiotics) aspirin AdvReac Mild Unverified 12/26/15 15:41 Exam Narrative Exam Narrative: General: male, unkempt, laying in bed, appears uncomfortable; Left wrist dressed with dressing which is getting saturated Neurological: A&Ox3, no focal deficits Psychiatric: appropriate speech pattern and content, cooperative Skin: Generally unkempt/poor hygiene. Visible injection site in L AC area with mild erythema, but not obviously infected. Tattoos. L wrist is dressed - when dressing is removed, incision on dorsal surface of the wrist is packed with dressing/ sanguenous discharge noted; erythema around the wound is demarcated with permanent marker. HEENT: EOMI, Dry MM, all teeth are broken, poor dental hygiene; no submandibular or cervical lymphadenopathy, no goiter or JVD; clear oropharynx Cardiovascular: RRR, tachycardic, no m/r/g Lungs: CTAB Gastrointestinal: abdomen soft, nontender, nondistended Extremities: no edema, clubbing, or cyanosis of BLE's; L wrist exam as above - limited ROM Results Imaging Additional studies: XR L forearm: Two views were obtained. No bony abn ormality or foreign body identified. Labs : 03/16/18 10:50 03/16/18 10:50 Laboratory Results - last 24 hr 03/16/18 03/16/18 03/16/18 10:50 10:50 10:50 WBC 16.58 H RBC 4.62 Hgb 12.6 L Hct 36.5 L MCV 79.0 L MCH 27.3 MCHC 34.5 RDW 12.5 Plt Count 401 H MPV 8.7 Immature Gran % 0.2 Neutrophils % 82.3 Lymphocytes % 9.8 Monocytes % 7.0 Eosinophils % 0.5 Basophils % 0.2 Absolute Neutrophils 13.65 H Absolute Lymphocytes 1.62 Absolute Monocytes 1.16 H Absolute Eosinophils 0.08 Absolute Basophils 0.03 Sodium 138 Potassium 3.2 L Chloride 102 Carbon Dioxide 25.2 Anion Gap 10.8 BUN 14 Creatinine 0.89 Estimated GFR/1.73 m2 >= 60.00 Glucose 127 H Lactate 1.9 H Calcium 9.0 Total Bilirubin 0.5 AST 13 L ALT 17 Alkaline Phosphatase 70 Total Protein 7.5 Albumin 3.0 L Urine Opiates Screen Urine Methadone Screen Ur Barbiturates Screen Ur Tricyclics Screen Ur Amphetamines Screen U Benzodiazepines Scrn Urine Cocaine Screen Ur THC Screen Ethyl Alcohol 03/16/18 03/16/18 14:04 14:22 WBC RBC Hgb Hct MCV MCH MCHC RDW Plt Count MPV Immature Gran % Neutrophils % Lymphocytes % Monocytes % Eosinophils % Basophils % Absolute Neutrophils Absolute Lymphocytes Absolute Monocytes Absolute Eosinophils Absolute Basophils Sodium Potassium Chloride Carbon Dioxide Anion Gap BUN Creatinine Estimated GFR/1.73 m2 Glucose Lactate Calcium Total Bilirubin AST ALT Alkaline Phosphatase Total Protein Albumin Urine Opiates Screen Negative Urine Methadone Screen Negative Ur Barbiturates Screen Negative Ur Tricyclics Screen Negative Ur Amphetamines Screen Negative U Benzodiazepines Scrn Negative Urine Cocaine Screen Negative Ur THC Screen Positive Ethyl Alcohol < 3.0 Last Vital Signs Temp 37.7 C H 03/16/18 17:15 Pulse 95 H 03/16/18 16:33 Resp 17 03/16/18 16:33 BP 165/90 H 03/16/18 16:33 Pulse Ox 97 03/16/18 16:33
[2018-03-16] MEDS: Potassium Chloride 20 MEQ TABCR 40 MEQ PO (18:36)
[2018-03-16] MEDS: risperiDONE 1 MG TAB 4 MG PO (19:46)
[2018-03-16] MEDS: Normal Saline Flush 10 ML SYR IVP (19:46)
[2018-03-16] MEDS: VANCOMYCIN 1,500 MG in Normal Saline 500 ML 333.333 MG IV (19:46)
[2018-03-17] MEDS: Acetaminophen 325 MG TAB PO ×4 (00:15→16:50)
[2018-03-17] MEDS: Normal Saline 1,000 ML 150 ML IV ×3 (00:16→16:47)
[2018-03-17] MEDS: VANCOMYCIN 1,500 MG in Normal Saline 500 ML 333 MG IV (03:29)
[2018-03-17 03:35] VITALS: BP 153/94; PULSE 94; RESP 18; TEMP 37.7; O2SAT 96
[2018-03-17 06:53] LABS: Abs Immature Grans 0.05 k/cumm (0.0-0.09); Absolute Eosinophil Count 0.18 k/cumm (0.0-0.7); Absolute Monocyte Count 1.24 k/cumm (0.11-0.7); Basophils % 0.1; Eosinophils % 1.2; HCT 35.7 % (40.0-50.0); HGB 12.1 g/dL (13.5-17.5); Immature Grans % 0.3; Lymphocytes % 16.1; Mean Corp. HGB Concentration 33.9 g/dL (32.0-36.0); Mean Corpuscular Hemoglobin 26.9 pg (27.0-33.0); Mean Corpuscular Volume 79.3 fL (80-95); Mean Platelet Volume 8.6 fL (8.0-11.0); Monocytes % 8.1; Neutrophils % 74.2; Platelet Count 321 x1000/uL (130-400); RBC Distribution Width 12.6 % (11.8-14.1); White Blood Cell Count 15.32 k/cumm (4.4-10.8)
[2018-03-17 06:54] LABS: Absolute Basophil Count 0.02 k/cumm (0.0-0.2); Absolute Lymphocyte Count 2.47 k/cumm (1.2-3.4); Absolute Neutrophil Count 11.37 k/cumm (1.2-6.7)
[2018-03-17 07:04] LABS: Anion Gap 9.2 mmol/L (3-11); C-Reactive Protein 16.08 mg/dL (0.0-0.3); CO2 23.8 mmol/L (21.0-32.0); CREATININE 0.77 mg/dL (0.70-1.30); Calcium 8.5 mg/dL (8.5-10.1); Chloride 105 mmol/L (98-107); Glucose 107 mg/dL (70-100); Potassium 3.4 mmol/L (3.5-5.1); Sodium 138 mmol/L (136-145)
[2018-03-17 07:18] LABS: BUN 6 mg/dL (7-18)
[2018-03-17 07:35] VITALS: BP 125/80; PULSE 89; RESP 18; TEMP 37; O2SAT 97
[2018-03-17] MEDS: Folic Acid 1 MG TAB PO (07:35)
[2018-03-17] MEDS: Multivitamin TAB 1 TAB PO (07:35)
[2018-03-17] MEDS: risperiDONE 1 MG TAB 4 MG PO ×2 (07:35→20:08)
[2018-03-17] MEDS: Thiamine 100 MG TAB PO (07:35)
[2018-03-17] MEDS: Ibuprofen 600 MG TAB PO ×3 (07:38→20:07)
[2018-03-17] MEDS: Potassium Chloride 20 MEQ TABCR 40 MEQ PO (09:04)
--- NOTE | 2018-03-17 09:08 | PHARADMIT ---
Addendum entered by He Turner III 03/20/18 14:10: Pharmacy Note Subjective Patient is improving, only issue surrounds wound care and dresing changes once he is discharged. Objective VS-OK Labs-WNL Weight-93.7 kg SCr-0.82 H&H-up Assessment Levaquin & Vanco continue, Vanco dose adjusted after high trough (28.2). New trough tonight at 1700 Plan Adjust Vancomycin if necessary Original Note: Addendum entered by Lynda Jaime 03/19/18 15:54: Pharmacy Note Subjective patient is improving, wound is looking better per morning report Objective VS-okay electrolytes okay h/h-11.9/35.4(up) CRP-5.98(down) Assessment blood cultures still no growth at 72 hours vanco and levofloxacin continue (day 4) IV fluids discontinued vanco trough came back at 28.2 but previous dose given late, talked to MD about dosing and changed to 1000 mg Q6H to target a trough of 16.4 Plan recheck vanco trough tomorrow, trough scheduled for 1700 Original Note: Addendum entered by Carmen Shipman 03/18/18 14:58: Pharmacy Note Subjective Area of cellulitis wrist/hand improving, wound care nurse will evaluate today & dressing change congested cough/wheeze Objective Vanco trough 25.1, VS ok, hand pain 4/10, lytes ok H/H down 11.3/33.5, C-reactive protein down 11.47 Micro blood: no growth x48h No other med changes Assessment Vanco trough drawn a little late, held dose x 4 hours with restart at new dose: 1250mg IV q6h Ok'd by MD with predicted trough of 20.....see note below Levaquin continues patient ambulating, APAP and Ibuprofen for pain Plan Vanco trough ordered for 3pm on 03/19/18 for re-evaluation Original Note: Addendum entered by He Turner III 03/17/18 11:50: addendum: Vancomycin trough 13.5, spoke with , she wants a high trough (20.3 predicted). Vancomcyin 1,500mg IV q6hrs (Pk-33.4 Trough-20.3 predicted). Patient has Arm sepsis which is spreading. Original Note: Admission Pharmacy Clinical Review SEPSIS due to Cellulitis/Abscess left upper extremety Code Status Full Code Current Weight Wgt- 98.6 kg Renally Cleared and Narrow Therapeutic Index Meds CrCl~ 138 mL/min Meds-OK QTc Value / Action Taken none BP Control, Fever BP- 125/80 Tmax-38.7C Electrolytes reviewed Na-138 K+3.4 Mag-2.0 DVT Prophylaxis NONE Opiate Usage / Scheduled Bowel Regimen Ordered No No Plt/SCr for Heparin / Enoxaparin Plts-321 SCr-0.77 INR for Warfarin NA H/H stable, WBC/Bands H&H- 12.1/35.7 WBC- 15.32 Antibiotic appropriateness Vancomycin, Levaquin Cultures and Sensitivities Blood-pending Surgical ABX d/c within 24 hr na DM control / Insulin Dosing BG- 107 Heart Failure (Check EF%) (VALENTÍN's, B-Block, Diuretics) none IV to PO Switch no Home Meds Reviewed Yes Home Meds Not Ordered Ordered Comments rcrp-16.08
[2018-03-17 09:20] LABS: Lactate-non-spesis 1.7 mmol/L (0.6-1.4)
[2018-03-17 11:32] VITALS: BP 133/72; PULSE 96; RESP 16; TEMP 36.8; O2SAT 97
[2018-03-17 11:36] LABS: Vancomycin, Trough 13.5 ug/mL (10.0-20.0)
--- NOTE | 2018-03-17 11:56 | PDOC.CMIN ---
- If Service Date Differs Date of service: 03/17/18 Time of Service: 11:56 Care Management Initial Assess REASON FOR HOSPITALIZATION:: Cellulitis in left forearm PAST MEDICAL HISTORY/PAST SURGICAL HISTORY:: Schizoaffective disorder per pt report, bipolar, polysubstance abuse including tobacco. PREVIOUS FUNCTIONAL STATUS/SOCIAL/FAMILY SUPPORTS:: Anmol is however he is not currently with his spouse. Anmol is disabled and receives SSI. Anmol lives independently at the [facility] in [place], [place]. He denies any local support system except his estranged spouse. His parents and other family live in [place]. Anmol reports that he has been using polysubstance over the past year via Injection.He reports when his son he lost contol of his life and began to use drugs. CURRENT FUNCTIONAL STATUS:: He reports that he has not used alcohol in years and his last IV injection he reports was at least three weeks ago. He reports his primary care proivder prescribes his Risperidone. He reports that he has been using clean needles for injection. He reports his drug of choice has been suboxone. He wants to particpate with a substance abuse treatement program however has not known how to access services. He is on a waiting list for [facility] to meet a therapist he currenly has no services through the agency. ADVANCE DIRECTIVES:: None on file at [facility] Has patient been provided with information about the portal?: Yes Did the patient sign up for the portal?: No CODE STATUS:: Full Code INSURANCE COVERAGE / FINANCIAL ISSUES:: Medicare CURRENT HOME/COMMUNITY SERVICES/EQUIPMENT:: None at this time. Will plan to refer patient to [facility] and assist [facility] intake proces. PRIMARY CARE PHYSICIAN:: Andreas Hahn POTENTIAL DISCHARGE NEEDS:: Scheduled intake with [facility], primary care provider appointment scheduled prior to discharge. PATIENT/FAMILY EDUCATION NEEDS:: Discharge education, limitations and follow up plan of care. ANTICIPATED BARRIERS TO DISCHARGE:: None indentified. TRANSPORTATION:: Via private car vs RCT PLAN:: Anmol is receivng antibiotcs, blood cultures are pending. No change in status today. CM to follow up with [facility] and assist the patient in coordinating service.
--- NOTE | 2018-03-17 12:19 | INITIAL_ITS ---
- If Service Date Differs Date of service: 03/17/18 Time of Service: 11:56 Care Management Initial Assess REASON FOR HOSPITALIZATION:: Cellulitis in left forearm PAST MEDICAL HISTORY/PAST SURGICAL HISTORY:: Schizoaffective disorder per pt report, bipolar, polysubstance abuse including tobacco. PREVIOUS FUNCTIONAL STATUS/SOCIAL/FAMILY SUPPORTS:: Anmol is however he is not currently with his spouse. Anmol is disabled and receives SSI. Anmol lives independently at the [facility] in [place], [place]. He denies any local support system except his estranged spouse. His parents and other family live in [place]. Anmol reports that he has been using polysubstance over the past year via Injection.He reports when his son he lost contol of his life and began to use drugs. CURRENT FUNCTIONAL STATUS:: He reports that he has not used alcohol in years and his last IV injection he reports was at least three weeks ago. He reports his primary care proivder prescribes his Risperidone. He reports that he has been using clean needles for injection. He reports his drug of choice has been suboxone. He wants to particpate with a substance abuse treatement program however has not known how to access services. He is on a waiting list for [facility] to meet a therapist he currenly has no services through the agency. ADVANCE DIRECTIVES:: None on file at [facility] Has patient been provided with information about the portal?: Yes Did the patient sign up for the portal?: No CODE STATUS:: Full Code INSURANCE COVERAGE / FINANCIAL ISSUES:: Medicare CURRENT HOME/COMMUNITY SERVICES/EQUIPMENT:: None at this time. Will plan to refer patient to [facility] and assist [facility] intake proces. PRIMARY CARE PHYSICIAN:: Andreas Hahn POTENTIAL DISCHARGE NEEDS:: Scheduled intake with [facility], primary care provider appointment scheduled prior to discharge. PATIENT/FAMILY EDUCATION NEEDS:: Discharge education, limitations and follow up plan of care. ANTICIPATED BARRIERS TO DISCHARGE:: None indentified. TRANSPORTATION:: Via private car vs RCT PLAN:: Anmol is receivng antibiotcs, blood cultures are pending. No change in status today. CM to follow up with [facility] and assist the patient in coordinating service.
[2018-03-17] MEDS: VANCOMYCIN 1,500 MG in Normal Saline 500 ML 333.333 MG IV ×2 (12:25→18:17)
[2018-03-17] MEDS: LEVOFLOXACIN 500 MG/100 ML BAG 100 MG IVPB (14:06)
[2018-03-17 15:52] VITALS: BP 123/75; PULSE 88; RESP 20; TEMP 36.5; O2SAT 97
--- NOTE | 2018-03-17 17:08 | PGE_ITS ---
Date of Service Date of service: 03/17/18 Time of Service: 17:04 Assessment and Plan (1) Sepsis: Current visit: Yes Status: Acute Due to abscess/cellulitis of L wrist in setting of known IV drug abuse. Blood cultures are negative today. Would reculture if spiked another fever. Continue vancomycin, levofloxacin, IVF. If looks worse tomorrow, would change abx, re-image and consult surgery. Monitor CRP. HIV pending. Qualifiers: Sepsis type: sepsis due to unspecified organism Qualified Code(s): A41.9 - Sepsis, unspecified organism (2) Abscess or cellulitis of wrist: Current visit: Yes Status: Acute As above. (3) Hypomagnesemia: Current visit: Yes Status: Resolved Monitor (4) Hypokalemia: Current visit: Yes Status: Acute replete (5) IV drug abuse: Current visit: Yes Status: Chronic Await results of HIV and hepatitis. Avoid narcotic medications. Monitor for withdrawal. (6) Methamphetamine abuse: Current visit: Yes Status: Chronic Monitor for withdrawal. (7) Bipolar disorder: Current visit: Yes Status: Chronic Continue home risperidone. (8) Tobacco abuse: Current visit: Yes Status: Chronic Counselled on quitting. Continue nicotrol inhaler. (9) DVT prophylaxis: Current visit: Yes Status: Acute Not required in an ambulatory 37 year old patient. (10) Discharge planning issues: Current visit: Yes Status: Acute Full code. Depending on blood culture results, we will determine the need for [employer] intravenous antibiotics. Subjective Interval history since last seen: Anmol states his pain level is 5/10. He denies dizziness, chest pain, shortness of breath, nausea, vomiting. Continues to feel thirsty. Exam Narrative Exam Narrative: General: male, laying in bed, appears uncomfortable; Left wrist dressing saturated with bright red blood Neurological: A&Ox3, no focal deficits Psychiatric: appropriate speech pattern and content, cooperative; bright affect Skin: LUE wound dressed, dressing saturated; +lymphangetic spread. HEENT: EOMI, Dry MM, all teeth are broken, poor dental hygiene; no goiter or JVD; Cardiovascular: RRR, tachycardic, no m/r/g Lungs: CTAB Gastrointestinal: abdomen soft, nontender, nondistended Extremities: no edema, clubbing, or cyanosis of BLE's; L wrist exam as above - limited ROM Objective Objective Clinical Data: Abnormal lab results 03/17/18 03/17/18 03/17/18 Range/Units 06:35 06:35 09:10 WBC 15.32 H (4.4-10.8) k/cumm Hgb 12.1 L (13.5-17.5) g/dL Hct 35.7 L (40.0-50.0) % MCV 79.3 L (80-95) fL MCH 26.9 L (27.0-33.0) pg Absolute Neutrophils 11.37 H (1.2-6.7) k/cumm Absolute Monocytes 1.24 H (0.11-0.7) k/cumm Potassium 3.4 L (3.5-5.1) mmol/L BUN 6 L (7-18) mg/dL Glucose 107 H (70-100) mg/dL Lactate 1.7 H (0.6-1.4) mmol/L C-Reactive Protein 16.08 H (0.0-0.3) mg/dL Vital Signs Temperature 36.5 C 03/17/18 15:52 Temperature Source Tympanic 03/17/18 15:52 Pulse 88 03/17/18 15:52 Pulse Rhythm Regular 03/17/18 07:35 Respiratory Rate 20 03/17/18 15:52 Respiratory Effort Non-Labored 03/17/18 07:35 Respiratory Depth Normal 03/17/18 07:35 Respiratory Pattern Normal 03/17/18 07:35 Blood Pressure 123/75 03/17/18 15:52 Pulse Oximetry 97 03/17/18 15:52 Oxygen Delivery Method Room Air 03/17/18 15:52 Oxygen Flow Rate 0 03/17/18 15:52 Pain Level 6 03/17/18 16:50 Comment 03/16/18 17:15 Intake & Output 03/16/18 03/17/18 03/17/18 23:59 11:59 23:59 Intake Total 3890.0 / 3890.0 3065 / 4160 1095 / 4160 Output Total 600 / 600 600 / 600 Balance 3290.0 / 3290.0 2465 / 3560 1095 / 3560 Weight 97.6 kg 98.6 kg Intake: IV 3100.0 / 3100.0 2135 / 2990 855 / 2990 Oral 790 / 790 930 / 1170 240 / 1170 Output: Urine 600 / 600 600 / 600 Other: Urine Color Straw Yellow Urine Appearance Clear Clear Urine Odor None None Comment UOP reported Pt voiding independently in toilet. Voiding Methods Toilet Toilet Laboratory Results WBC 15.32 k/cumm (4.4-10.8) H 03/17/18 06:35 RBC 4.50 m/cumm (4.50-6.00) 03/17/18 06:35 Hgb 12.1 g/dL (13.5-17.5) L 03/17/18 06:35 Hct 35.7 % (40.0-50.0) L 03/17/18 06:35 MCV 79.3 fL (80-95) L 03/17/18 06:35 MCH 26.9 pg (27.0-33.0) L 03/17/18 06:35 MCHC 33.9 g/dL (32.0-36.0) 03/17/18 06:35 RDW 12.6 % (11.8-14.1) 03/17/18 06:35 Plt Count 321 x1000/uL (130-400) 03/17/18 06:35 MPV 8.6 fL (8.0-11.0) 03/17/18 06:35 Immature Gran % 0.3 03/17/18 06:35 Neutrophils % 74.2 03/17/18 06:35 Lymphocytes % 16.1 03/17/18 06:35 Monocytes % 8.1 03/17/18 06:35 Eosinophils % 1.2 03/17/18 06:35 Basophils % 0.1 03/17/18 06:35 Absolute Neutrophils 11.37 k/cumm (1.2-6.7) H 03/17/18 06:35 Absolute Lymphocytes 2.47 k/cumm (1.2-3.4) 03/17/18 06:35 Absolute Monocytes 1.24 k/cumm (0.11-0.7) H 03/17/18 06:35 Absolute Eosinophils 0.18 k/cumm (0.0-0.7) 03/17/18 06:35 Absolute Basophils 0.02 k/cumm (0.0-0.2) 03/17/18 06:35 Sodium 138 mmol/L (136-145) 03/17/18 06:35 Potassium 3.4 mmol/L (3.5-5.1) L 03/17/18 06:35 Chloride 105 mmol/L (98-107) 03/17/18 06:35 Carbon Dioxide 23.8 mmol/L (21.0-32.0) 03/17/18 06:35 Anion Gap 9.2 mmol/L (3-11) 03/17/18 06:35 BUN 6 mg/dL (7-18) L 03/17/18 06:35 Creatinine 0.77 mg/dL (0.70-1.30) 03/17/18 06:35 Estimated GFR/1.73 m2 >= 60.00 (mL/min/1.73m2) 03/17/18 06:35 Glucose 107 mg/dL (70-100) H 03/17/18 06:35 Lactate 1.7 mmol/L (0.6-1.4) H 03/17/18 09:10 Calcium 8.5 mg/dL (8.5-10.1) 03/17/18 06:35 Magnesium 2.0 mg/dL (1.8-2.4) 03/17/18 06:35 Total Bilirubin 0.5 mg/dL (0.2-1.0) 03/16/18 10:50 AST 13 U/L (15-37) L 03/16/18 10:50 ALT 17 U/L (12-78) 03/16/18 10:50 Alkaline Phosphatase 70 U/L (46-116) 03/16/18 10:50 C-Reactive Protein 16.08 mg/dL (0.0-0.3) H 03/17/18 06:35 Total Protein 7.5 g/dL (6.4-8.2) 03/16/18 10:50 Albumin 3.0 g/dL (3.4-5.0) L 03/16/18 10:50 Vancomycin Trough 13.5 ug/mL (10.0-20.0) 03/17/18 11:10 Urine Opiates Screen Negative (Negative) 03/16/18 14:22 Urine Methadone Screen Negative (Negative) 12/24/18 14:22 Ur Barbiturates Screen Negative (Negative) 03/16/18 14:22 Ur Tricyclics Screen Negative (Negative) 03/16/18 14:22 Ur Amphetamines Screen Negative (Negative) 03/16/18 14:22 U Benzodiazepines Scrn Negative (Negative) 03/16/18 14:22 Urine Cocaine Screen Negative (Negative) 03/16/18 14:22 Ur THC Screen Positive (Negative) 03/16/18 14:22 Ethyl Alcohol < 3.0 mg/dL (<3) 03/16/18 14:04
[2018-03-17 19:47] VITALS: BP 134/81; PULSE 84; RESP 84; TEMP 36.5; O2SAT 97
[2018-03-17 23:52] VITALS: BP 143/92; PULSE 79; RESP 18; TEMP 36.6; O2SAT 98
[2018-03-18] MEDS: VANCOMYCIN 1,500 MG in Normal Saline 500 ML 333 MG IV ×2 (00:01→05:33)
[2018-03-18] MEDS: Acetaminophen 325 MG TAB PO ×3 (00:01→17:05)
[2018-03-18] MEDS: Normal Saline 1,000 ML 150 ML IV ×2 (02:04→10:58)
[2018-03-18] MEDS: Ibuprofen 600 MG TAB PO ×2 (02:07→08:12)
[2018-03-18 05:38] VITALS: BP 112/64; PULSE 62; RESP 18; TEMP 36.4; O2SAT 97
[2018-03-18 07:09] LABS: Abs Immature Grans 0.03 k/cumm (0.0-0.09); Absolute Basophil Count 0.02 k/cumm (0.0-0.2); Absolute Eosinophil Count 0.39 k/cumm (0.0-0.7); Absolute Lymphocyte Count 2.26 k/cumm (1.2-3.4); Basophils % 0.2; HCT 33.5 % (40.0-50.0); HGB 11.3 g/dL (13.5-17.5); Immature Grans % 0.3; Lymphocytes % 23.2; Mean Corp. HGB Concentration 33.7 g/dL (32.0-36.0); Mean Corpuscular Volume 80.1 fL (80-95); Mean Platelet Volume 8.8 fL (8.0-11.0); Monocytes % 9.2; Neutrophils % 63.1; Platelet Count 363 x1000/uL (130-400); RBC 4.18 m/cumm (4.50-6.00); RBC Distribution Width 12.6 % (11.8-14.1); White Blood Cell Count 9.73 k/cumm (4.4-10.8)
[2018-03-18 07:17] LABS: Absolute Neutrophil Count 6.14 k/cumm (1.2-6.7)
[2018-03-18 07:26] LABS: Anion Gap 9.1 mmol/L (3-11); BUN 6 mg/dL (7-18); C-Reactive Protein 11.47 mg/dL (0.0-0.3); CO2 22.9 mmol/L (21.0-32.0); CREATININE 0.79 mg/dL (0.70-1.30); Calcium 8.4 mg/dL (8.5-10.1); Chloride 108 mmol/L (98-107); Glucose 97 mg/dL (70-100); Potassium 3.5 mmol/L (3.5-5.1); Sodium 140 mmol/L (136-145)
[2018-03-18 07:30] VITALS: BP 137/91; PULSE 73; RESP 18; TEMP 37; O2SAT 97
[2018-03-18] MEDS: Thiamine 100 MG TAB PO (08:11)
[2018-03-18] MEDS: risperiDONE 1 MG TAB 4 MG PO ×2 (08:11→20:25)
[2018-03-18] MEDS: Folic Acid 1 MG TAB PO (08:12)
[2018-03-18] MEDS: Multivitamin TAB 1 TAB PO (08:12)
[2018-03-18 11:43] LABS: Vancomycin, Trough 25.1 ug/mL (10.0-20.0)
[2018-03-18 12:00] VITALS: BP 144/99; PULSE 87; RESP 16; TEMP 37; O2SAT 97
--- NOTE | 2018-03-18 13:10 | PDOC.CMPRO ---
- If Service Date Differs Date of service: 03/18/18 Time of Service: 13:10 Care Management Progress Note S/O: CM met with patient in the room he received surgical consult today and wound was addressed. He remains on IV antibiotics to treat infection. His WBC is trending down as well as his c-reactive protein. CM did review process for contacting [facility] substance treatment services. Patient has the number he will call in the morning. Anmol is appropriate he makes good eye contact. He is using the nicotol inhaler, CM reviewed other nicotine replacement therapies he does not want a patch at this time. A:Anmol is a 37 year old male admitted with cellulitis of his left forearm with a history of substance abuse. P:Anmol will be discharged home when medically ready. CM referred patient to [facility] services for intake and substance abuse services. CM will continue to provide support to patient ongoing discharge planning and referral to community resources.
--- NOTE | 2018-03-18 13:13 | CMPROGNOTE_ITS ---
- If Service Date Differs Date of service: 03/18/18 Time of Service: 13:10 Care Management Progress Note S/O: CM met with patient in the room he received surgical consult today and wound was addressed. He remains on IV antibiotics to treat infection. His WBC is trending down as well as his c-reactive protein. CM did review process for contacting [facility] substance treatment services. Patient has the number he will call in the morning. Anmol is appropriate he makes good eye contact. He is using the nicotol inhaler, CM reviewed other nicotine replacement therapies he does not want a patch at this time. A:Anmol is a 37 year old male admitted with cellulitis of his left forearm with a history of substance abuse. P:Anmol will be discharged home when medically ready. CM referred patient to [facility] services for intake and substance abuse services. CM will continue to provide support to patient ongoing discharge planning and referral to community resources.
--- NOTE | 2018-03-18 14:04 | CHAPLAIN ---
Anmol was returning to his room after a shower today, when I stopped in. We had a short visit, I explained my role and offered support.
[2018-03-18] MEDS: LEVOFLOXACIN 500 MG/100 ML BAG 100 MG IVPB (14:47)
--- NOTE | 2018-03-18 14:53 | W.SURGCON ---
Date of service: 03/18/18 Time of Service: 14:53 Assessment and Plan (1) IV drug abuse: Start date: 03/18/18 Start time: 15:01 Current visit: Yes Status: Chronic needs substance abuse consult (2) Abscess or cellulitis of wrist: Start date: 03/18/18 Start time: 15:01 Current visit: Yes Status: Acute was I&D would cont dressing and packing daily, keep Clean and dry, elevate above the heart (3) Open wnd wrist-complic: Start date: 03/18/18 Start time: 15:02 Current visit: Yes Status: Acute dressing daily and elevation of the extremity History of Present Illness Chief Complaint: pain and cellulitis of left wrist and hand Narrative: pt right handed and HO IVDA, had two spots of active abscess I&D by ED staff, PMD concerned about the wound and ongoing treatment/dressing required for it Review of Systems Review of Systems All systems reviewed & are unremarkable except as noted in HPI and below Musculoskeletal Comments: left wrist and hand with 2 incisions the one over the wrist open there was some drainage cellulites present with it regressing with the previous markings on the skin [facility], [facility] Medical History Abscess of left upper extremity (Acute) IV drug user (Acute) Polysubstance abuse (Acute) Bipolar disorder (Chronic) Schizoaffective disorder, chronic condition (Suspected) Surgical History Surgical complication involving left eye (Suspected) History of repair of anterior cruciate ligament of right knee (Resolved) Status post incision and drainage (Resolved) Family History Other Diabetes Heart disease Social History Smoking/Tobacco Use Status: Current every day tobacco type: cigarettes counseling given: provider counseling, support medications and counseling >3 minutes alcohol intake: former substance use type: heroin, opiates, painkillers, IV drugs, methamphetamine and prescription drug counseling given: Yes counseling provided: provider counseling Exam Extrem Hand/finger images: 1. open wrist incision, draining 2. partially closed previous I&D 3. distal demarcation of the cellulitis 4. proximal demarcation of the cellulitis Results Last Vital Signs Temp 37 C 03/18/18 12:00 Pulse 87 03/18/18 12:00 Resp 16 03/18/18 12:00 BP 144/99 H 03/18/18 12:00 Pulse Ox 97 03/18/18 12:00 Labs : 03/18/18 06:30 03/18/18 06:30 Laboratory Results - last 24 hr 03/18/18 03/18/18 03/18/18 06:30 06:30 11:15 WBC 9.73 D RBC 4.18 L Hgb 11.3 L Hct 33.5 L MCV 80.1 MCH 27.0 MCHC 33.7 RDW 12.6 Plt Count 363 MPV 8.8 Immature Gran % 0.3 Neutrophils % 63.1 Lymphocytes % 23.2 Monocytes % 9.2 Eosinophils % 4.0 Basophils % 0.2 Absolute Neutrophils 6.14 Absolute Lymphocytes 2.26 Absolute Monocytes 0.90 H Absolute Eosinophils 0.39 Absolute Basophils 0.02 Sodium 140 Potassium 3.5 Chloride 108 H Carbon Dioxide 22.9 Anion Gap 9.1 BUN 6 L Creatinine 0.79 Estimated GFR/1.73 m2 >= 60.00 Glucose 97 Calcium 8.4 L Magnesium 2.0 C-Reactive Protein 11.47 H Vancomycin Trough 25.1 H*
[2018-03-18 15:46] VITALS: BP 135/73; PULSE 78; RESP 18; TEMP 37; O2SAT 97
[2018-03-18] MEDS: VANCOMYCIN 1,250 MG in Normal Saline 250 ML 166.667 MG IVPB (17:06)
--- NOTE | 2018-03-18 18:21 | W.PM.PROGNOT ---
Date of Service Date of service: 03/18/18 Time of Service: 11:30 Assessment and Plan (1) Sepsis: Current visit: Yes Status: Resolved Due to abscess/cellulitis of L wrist in setting of known IV drug abuse. Sepsis has resolved. Blood cultures show no growth to date. Continue treatment of cellulitis/abscess LUE as below. Appreciate surgical help. Qualifiers: Sepsis type: sepsis due to unspecified organism Qualified Code(s): A41.9 - Sepsis, unspecified organism (2) Abscess or cellulitis of wrist: Current visit: Yes Status: Acute As above. Continue vancomycin + levofloxacin. Significantly clinically better. Continue to monitor CRP's. (3) Hypomagnesemia: Current visit: Yes Status: Resolved Monitor (4) Hypokalemia: Current visit: Yes Status: Resolved Monitor (5) IV drug abuse: Current visit: Yes Status: Chronic Await results of HIV and hepatitis. Avoid narcotic medications. Monitor for withdrawal. (6) Methamphetamine abuse: Current visit: Yes Status: Chronic Monitor for withdrawal. (7) Bipolar disorder: Current visit: Yes Status: Chronic Continue home risperidone. (8) Tobacco abuse: Current visit: Yes Status: Chronic Counselled on quitting. Continue nicotrol inhaler. (9) DVT prophylaxis: Current visit: Yes Status: Acute Not required in an ambulatory 37 year old patient. (10) Discharge planning issues: Current visit: Yes Status: Acute Full code. Will need wound care arrangements on discharge Subjective Interval history since last seen: Mr Jackson states he feels better. The pain, mobility in his hand and the wrist are better. He was evaluated by general surgery, who gave wound care recommendations. No additional surgical intervention is deemed necessary at this time. Denies dizziness, chest pain, shortness of breath, nausea, vomiting. Exam Narrative Exam Narrative: General: A&OX3, laying in bed, LUE wound is open to air - no pus can be expressed, erythema receding; L wrist and hand mobility is improving HEENT: EOMI, Dry MM, all teeth are broken, poor dental hygiene; no goiter or JVD; Cardiovascular: RRR, tachycardic, no m/r/g Lungs: CTAB Gastrointestinal: abdomen soft, nontender, nondistended Extremities: no edema, clubbing, or cyanosis of BLE's; L wrist exam as above Objective Objective Clinical Data: Abnormal lab results 03/18/18 03/18/18 03/18/18 Range/Units 06:30 06:30 11:15 RBC 4.18 L (4.50-6.00) m/cumm Hgb 11.3 L (13.5-17.5) g/dL Hct 33.5 L (40.0-50.0) % Absolute Monocytes 0.90 H (0.11-0.7) k/cumm Chloride 108 H (98-107) mmol/L BUN 6 L (7-18) mg/dL Calcium 8.4 L (8.5-10.1) mg/dL C-Reactive Protein 11.47 H (0.0-0.3) mg/dL Vancomycin Trough 25.1 H* (10.0-20.0) ug/mL Vital Signs Temperature 37.0 C 03/18/18 15:46 Temperature Source Tympanic 03/18/18 15:46 Pulse 78 03/18/18 15:46 Pulse Rhythm Regular 03/18/18 17:00 Respiratory Rate 18 03/18/18 15:46 Respiratory Effort Non-Labored 03/18/18 17:00 Respiratory Depth Normal 03/18/18 17:00 Respiratory Pattern Normal 03/18/18 17:00 Blood Pressure 135/73 03/18/18 15:46 Pulse Oximetry 97 03/18/18 15:46 Oxygen Delivery Method Room Air 03/18/18 15:46 Oxygen Flow Rate 0 03/18/18 15:46 Pain Level 5 03/18/18 17:05 Comment 03/16/18 17:15 Intake & Output 03/17/18 03/18/18 03/18/18 23:59 11:59 23:59 Intake Total 2595.0 / 5660.0 2940 / 3847.5 907.5 / 3847.5 Balance 2595.0 / 5060.0 2940 / 3847.5 907.5 / 3847.5 Weight 97.5 kg Intake: IV 2355.0 / 4490.0 2000 / 2667.5 667.5 / 2667.5 Oral 240 / 1170 940 / 1180 240 / 1180 Other: Urine Color Yellow Urine Appearance Clear Comment UOP x 1 UOP x 1 Pt voiding independently in bathroom Voiding Methods Toilet Toilet Laboratory Results WBC 9.73 k/cumm (4.4-10.8) D 03/18/18 06:30 RBC 4.18 m/cumm (4.50-6.00) L 03/18/18 06:30 Hgb 11.3 g/dL (13.5-17.5) L 03/18/18 06:30 Hct 33.5 % (40.0-50.0) L 03/18/18 06:30 MCV 80.1 fL (80-95) 03/18/18 06:30 MCH 27.0 pg (27.0-33.0) 03/18/18 06:30 MCHC 33.7 g/dL (32.0-36.0) 03/18/18 06:30 RDW 12.6 % (11.8-14.1) 03/18/18 06:30 Plt Count 363 x1000/uL (130-400) 03/18/18 06:30 MPV 8.8 fL (8.0-11.0) 03/18/18 06:30 Immature Gran % 0.3 03/18/18 06:30 Neutrophils % 63.1 03/18/18 06:30 Lymphocytes % 23.2 03/18/18 06:30 Monocytes % 9.2 03/18/18 06:30 Eosinophils % 4.0 03/18/18 06:30 Basophils % 0.2 03/18/18 06:30 Absolute Neutrophils 6.14 k/cumm (1.2-6.7) 03/18/18 06:30 Absolute Lymphocytes 2.26 k/cumm (1.2-3.4) 03/18/18 06:30 Absolute Monocytes 0.90 k/cumm (0.11-0.7) H 03/18/18 06:30 Absolute Eosinophils 0.39 k/cumm (0.0-0.7) 03/18/18 06:30 Absolute Basophils 0.02 k/cumm (0.0-0.2) 03/18/18 06:30 Sodium 140 mmol/L (136-145) 03/18/18 06:30 Potassium 3.5 mmol/L (3.5-5.1) 03/18/18 06:30 Chloride 108 mmol/L (98-107) H 03/18/18 06:30 Carbon Dioxide 22.9 mmol/L (21.0-32.0) 03/18/18 06:30 Anion Gap 9.1 mmol/L (3-11) 03/18/18 06:30 BUN 6 mg/dL (7-18) L 03/18/18 06:30 Creatinine 0.79 mg/dL (0.70-1.30) 03/18/18 06:30 Estimated GFR/1.73 m2 >= 60.00 (mL/min/1.73m2) 03/18/18 06:30 Glucose 97 mg/dL (70-100) 03/18/18 06:30 Lactate 1.7 mmol/L (0.6-1.4) H 03/17/18 09:10 Calcium 8.4 mg/dL (8.5-10.1) L 03/18/18 06:30 Magnesium 2.0 mg/dL (1.8-2.4) 03/18/18 06:30 Total Bilirubin 0.5 mg/dL (0.2-1.0) 03/16/18 10:50 AST 13 U/L (15-37) L 03/16/18 10:50 ALT 17 U/L (12-78) 03/16/18 10:50 Alkaline Phosphatase 70 U/L (46-116) 03/16/18 10:50 C-Reactive Protein 11.47 mg/dL (0.0-0.3) H 03/18/18 06:30 Total Protein 7.5 g/dL (6.4-8.2) 03/16/18 10:50 Albumin 3.0 g/dL (3.4-5.0) L 03/16/18 10:50 Vancomycin Trough 25.1 ug/mL (10.0-20.0) H* 03/18/18 11:15 Urine Opiates Screen Negative (Negative) 03/16/18 14:22 Urine Methadone Screen Negative (Negative) 03/16/18 14:22 Ur Barbiturates Screen Negative (Negative) 03/16/18 14:22 Ur Tricyclics Screen Negative (Negative) 03/16/18 14:22 Ur Amphetamines Screen Negative (Negative) 03/16/18 14:22 U Benzodiazepines Scrn Negative (Negative) 12/24/18 14:22 Urine Cocaine Screen Negative (Negative) 03/16/18 14:22 Ur THC Screen Positive (Negative) 03/16/18 14:22 Ethyl Alcohol < 3.0 mg/dL (<3) 03/16/18 14:04
[2018-03-18 19:52] VITALS: BP 131/83; PULSE 77; RESP 20; TEMP 37; O2SAT 96
[2018-03-18] MEDS: VANCOMYCIN 1,250 MG in Normal Saline 250 ML 167 MG IVPB (21:55)
[2018-03-19] MEDS: Normal Saline 1,000 ML 150 ML IV ×2 (01:08→07:07)
[2018-03-19 04:41] VITALS: BP 128/78; PULSE 78; RESP 18; TEMP 36.9; O2SAT 96
[2018-03-19] MEDS: VANCOMYCIN 1,250 MG in Normal Saline 250 ML 167 MG IVPB ×2 (05:50→11:23)
[2018-03-19 07:19] LABS: Abs Immature Grans 0.01 k/cumm (0.0-0.09); Absolute Basophil Count 0.03 k/cumm (0.0-0.2); Absolute Eosinophil Count 0.44 k/cumm (0.0-0.7); Absolute Lymphocyte Count 2.25 k/cumm (1.2-3.4); Absolute Monocyte Count 0.54 k/cumm (0.11-0.7); Absolute Neutrophil Count 4.57 k/cumm (1.2-6.7); Basophils % 0.4; Eosinophils % 5.6; HCT 35.4 % (40.0-50.0); HGB 11.9 g/dL (13.5-17.5); Immature Grans % 0.1; Lymphocytes % 28.7; Mean Corp. HGB Concentration 33.6 g/dL (32.0-36.0); Mean Corpuscular Hemoglobin 26.7 pg (27.0-33.0); Mean Corpuscular Volume 79.6 fL (80-95); Mean Platelet Volume 8.7 fL (8.0-11.0); Monocytes % 6.9; Neutrophils % 58.3; Platelet Count 388 x1000/uL (130-400); RBC 4.45 m/cumm (4.50-6.00); RBC Distribution Width 12.5 % (11.8-14.1); White Blood Cell Count 7.84 k/cumm (4.4-10.8)
[2018-03-19 07:35] LABS: Anion Gap 12.4 mmol/L (3-11); BUN 7 mg/dL (7-18); C-Reactive Protein 5.98 mg/dL (0.0-0.3); CO2 23.6 mmol/L (21.0-32.0); CREATININE 0.84 mg/dL (0.70-1.30); Calcium 8.8 mg/dL (8.5-10.1); Chloride 105 mmol/L (98-107); Glucose 105 mg/dL (70-100); Potassium 3.5 mmol/L (3.5-5.1); Sodium 141 mmol/L (136-145)
[2018-03-19 07:43] VITALS: BP 138/92; PULSE 81; RESP 16; TEMP 36.7; O2SAT 98
[2018-03-19] MEDS: Multivitamin TAB 1 TAB PO (08:54)
[2018-03-19] MEDS: Acetaminophen 325 MG TAB PO ×3 (08:54→19:27)
[2018-03-19] MEDS: Thiamine 100 MG TAB PO (08:54)
[2018-03-19] MEDS: Folic Acid 1 MG TAB PO (08:54)
[2018-03-19] MEDS: risperiDONE 1 MG TAB 4 MG PO ×2 (08:54→19:27)
[2018-03-19] MEDS: Ibuprofen 600 MG TAB PO ×3 (08:54→19:27)
[2018-03-19 10:08] LABS: HBs Antibody, Qual Negative; HBs Antibody, Quant 5.3 mIU/mL; HIV-1/2 Ag & Ab Screen Negative (NEGAT); Hepatitis B Core Antibody Negative (NEGAT); Hepatitis B surface Ag Negative (NEGAT); Hepatitis C Ab w Rflx HCV PCR Negative (NEGAT)
[2018-03-19 11:48] VITALS: BP 129/85; PULSE 84; RESP 18; TEMP 37.2; O2SAT 96
--- NOTE | 2018-03-19 13:15 | CMPROGNOTE_ITS ---
- If Service Date Differs Date of service: 03/19/18 Time of Service: 13:14 Care Management Progress Note S/O: CM met with Anmol at the bedside he reports that he did contact [facility] and was told they will call him back with intake appointment. Anmol remains inpatient he is receiving IV vancomycin and continues to have his labs monitored. He will not qualify for home health for dressing changes however he states he does have family that can help him. CM encouraged him to have his spouse here during a dressing change so that his family can help at home. He will talk to his family and CM will review with nurse family and patient teaching for dressing changes. A:Anmol is a 37 year old male admitted with cellulitis of his left forearm with a history of substance abuse. P:Anmol will be discharged home when medically ready. CM referred patient to [facility] services for intake and substance abuse services. CM will continue to provide support to patient ongoing discharge planning and referral to community resources.
--- NOTE | 2018-03-19 14:07 | W.PM.PROGNOT ---
Date of Service Date of service: 03/19/18 Time of Service: 14:07 Assessment and Plan (1) Sepsis: Current visit: Yes Status: Resolved Due to abscess/cellulitis of L wrist in setting of known IV drug abuse. Sepsis has resolved. Blood cultures have yielded no growth at 72 hours. Continue treatment of cellulitis/abscess left wrist. Qualifiers: Sepsis type: sepsis due to unspecified organism Qualified Code(s): A41.9 - Sepsis, unspecified organism (2) Abscess or cellulitis of wrist: Current visit: Yes Status: Acute Improving. Continue vancomycin and levofloxacin. CRP continues to improve. Continue to monitor CRP. (3) IV drug abuse: Current visit: Yes Status: Chronic Hepatitis and HIV pending. Continue to avoid narcotic medications. Continue to monitor for withdrawal. He has been in contact with [facility]. He plans to remain clean when he is discharged from the hospital. He would benefit from therapy as well as he has had significant loss in his life. (4) Methamphetamine abuse: Current visit: Yes Status: Chronic Continue to monitor for withdrawal symptoms. (5) Bipolar disorder: Current visit: Yes Status: Chronic Continue risperidone. (6) Tobacco abuse: Current visit: Yes Status: Chronic Continue to encourage smoking cessation. (7) DVT prophylaxis: Current visit: Yes Status: Acute Not required in this 37 year old, active/ambulatory man. (8) Discharge planning issues: Current visit: Yes Status: Acute Care management is working on a plan to manage wound care when he is discharged home. This case was discussed with Dr. Peralta who is in agreement. Subjective Interval history since last seen: Anmol Jackson is a pleasant 37 year old man with a history of IV drug abuse who is currently being treated for sepsis due to cellulitis/abscess to left wrist with IV Vancomycin and Levaquin. He reports that his left wrist/hand is getting better, the pain is improving, he is able to move his fingers and bend his wrist more today than he was yesterday. He feels that the erythema and edema have improved markedly. He has 2 sites of previous I&D that continue to drain serosanguineous fluid. He denies IBARRA, fever, diaphoresis, chest pain/pressure, palpitations, shortness of breath, cough, wheeze, he is eating and drinking well. He reports having a bowel movement. He reports that he called [facility] today but was not successful getting set up to see them due to them having computer problems. [facility] will call him back. Exam Narrative Exam Narrative: General: Alert and oriented X3, laying in bed, LUE elevated. wounds are dressed, erythema immediately surrounding wounds, serosanguineous drainage noted on both dressings. he is able to move fingers and bend wrist. HEENT: Pupils equal and round, EOMI, MMM, poor dentition with broken teeth. Neck: supple without JVD. Cardiovascular: RRR, non-tachycardic, no m/r/g Lungs: respirations even and unlabored, lung sounds with wheezing noted throughout. Gastrointestinal: abdomen soft, nontender, nondistended with normoactive bowel sounds. Extremities: no edema, clubbing, or cyanosis of BLE's. L wrist (as above), with edema, improving, left radial pulse intact, CMST intact. Objective Objective Clinical Data: Abnormal lab results 03/19/18 03/19/18 Range/Units 06:50 06:50 RBC 4.45 L (4.50-6.00) m/cumm Hgb 11.9 L (13.5-17.5) g/dL Hct 35.4 L (40.0-50.0) % MCV 79.6 L (80-95) fL MCH 26.7 L (27.0-33.0) pg Anion Gap 12.4 H (3-11) mmol/L Glucose 105 H (70-100) mg/dL C-Reactive Protein 5.98 H (0.0-0.3) mg/dL Vital Signs Temperature 37.2 C 03/19/18 11:48 Temperature Source Tympanic 03/19/18 11:48 Pulse 84 03/19/18 11:48 Pulse Rhythm Regular 03/19/18 04:41 Respiratory Rate 18 03/19/18 11:48 Respiratory Effort Non-Labored 03/19/18 04:41 Respiratory Depth Normal 03/19/18 04:41 Respiratory Pattern Normal 03/19/18 04:41 Blood Pressure 129/85 03/19/18 11:48 Pulse Oximetry 96 03/19/18 11:48 Oxygen Delivery Method Room Air 03/19/18 11:48 Oxygen Flow Rate 0 03/19/18 11:48 Pain Level 3 03/19/18 08:54 Comment 03/16/18 17:15 Intake & Output 03/18/18 03/19/18 03/19/18 23:59 11:59 23:59 Intake Total 1840.0 / 4780.0 1310 / 1800 490 / 1800 Balance 1840.0 / 4780.0 1310 / 1800 490 / 1800 Weight 95.2 kg Intake: IV 1600.0 / 3600.0 950 / 950 Oral 240 / 1180 360 / 850 490 / 850 Other: Urine Color Yellow Urine Appearance Clear Urine Odor Normal Comment Pt voiding independently in bathroom Voided in toilet, not flushed, not measured. Voiding Methods Toilet Toilet Laboratory Results WBC 7.84 k/cumm (4.4-10.8) 03/19/18 06:50 RBC 4.45 m/cumm (4.50-6.00) L 03/19/18 06:50 Hgb 11.9 g/dL (13.5-17.5) L 03/19/18 06:50 Hct 35.4 % (40.0-50.0) L 03/19/18 06:50 MCV 79.6 fL (80-95) L 03/19/18 06:50 MCH 26.7 pg (27.0-33.0) L 03/19/18 06:50 MCHC 33.6 g/dL (32.0-36.0) 03/19/18 06:50 RDW 12.5 % (11.8-14.1) 03/19/18 06:50 Plt Count 388 x1000/uL (130-400) 03/19/18 06:50 MPV 8.7 fL (8.0-11.0) 03/19/18 06:50 Immature Gran % 0.1 03/19/18 06:50 Neutrophils % 58.3 03/19/18 06:50 Lymphocytes % 28.7 03/19/18 06:50 Monocytes % 6.9 03/19/18 06:50 Eosinophils % 5.6 03/19/18 06:50 Basophils % 0.4 03/19/18 06:50 Absolute Neutrophils 4.57 k/cumm (1.2-6.7) 03/19/18 06:50 Absolute Lymphocytes 2.25 k/cumm (1.2-3.4) 03/19/18 06:50 Absolute Monocytes 0.54 k/cumm (0.11-0.7) 03/19/18 06:50 Absolute Eosinophils 0.44 k/cumm (0.0-0.7) 03/19/18 06:50 Absolute Basophils 0.03 k/cumm (0.0-0.2) 03/19/18 06:50 Sodium 141 mmol/L (136-145) 03/19/18 06:50 Potassium 3.5 mmol/L (3.5-5.1) 03/19/18 06:50 Chloride 105 mmol/L (98-107) 03/19/18 06:50 Carbon Dioxide 23.6 mmol/L (21.0-32.0) 03/19/18 06:50 Anion Gap 12.4 mmol/L (3-11) H 03/19/18 06:50 BUN 7 mg/dL (7-18) 03/19/18 06:50 Creatinine 0.84 mg/dL (0.70-1.30) 03/19/18 06:50 Estimated GFR/1.73 m2 >= 60.00 (mL/min/1.73m2) 03/19/18 06:50 Glucose 105 mg/dL (70-100) H 03/19/18 06:50 Lactate 1.7 mmol/L (0.6-1.4) H 03/17/18 09:10 Calcium 8.8 mg/dL (8.5-10.1) 03/19/18 06:50 Magnesium 2.0 mg/dL (1.8-2.4) 03/19/18 06:50 Total Bilirubin 0.5 mg/dL (0.2-1.0) 03/16/18 10:50 AST 13 U/L (15-37) L 03/16/18 10:50 ALT 17 U/L (12-78) 03/16/18 10:50 Alkaline Phosphatase 70 U/L (46-116) 03/16/18 10:50 C-Reactive Protein 5.98 mg/dL (0.0-0.3) H 03/19/18 06:50 Total Protein 7.5 g/dL (6.4-8.2) 03/16/18 10:50 Albumin 3.0 g/dL (3.4-5.0) L 03/16/18 10:50 Vancomycin Trough 25.1 ug/mL (10.0-20.0) H* 03/18/18 11:15 Urine Opiates Screen Negative (Negative) 03/16/18 14:22 Urine Methadone Screen Negative (Negative) 03/16/18 14:22 Ur Barbiturates Screen Negative (Negative) 03/16/18 14:22 Ur Tricyclics Screen Negative (Negative) 03/16/18 14:22 Ur Amphetamines Screen Negative (Negative) 03/16/18 14:22 U Benzodiazepines Scrn Negative (Negative) 03/16/18 14:22 Urine Cocaine Screen Negative (Negative) 03/16/18 14:22 Ur THC Screen Positive (Negative) 03/16/18 14:22 Ethyl Alcohol < 3.0 mg/dL (<3) 03/16/18 14:04
[2018-03-19] MEDS: LEVOFLOXACIN 500 MG/100 ML BAG 100 MG IVPB (14:57)
[2018-03-19] MEDS: Normal Saline 500 ML IV (15:00)
--- NOTE | 2018-03-19 15:33 | WOUNDCARE ---
Wound Care Report Initial recommendation on 03/18/18 is to defer to surgical services. Pt has infection and this scribe wants tendon involvement in wrist and abscess site ruled out prior to making dressing recommendations.
--- NOTE | 2018-03-19 15:36 | WOUNDCARE ---
Wound Care Report Pt seen by surgeons, tendon involvement ruled out by bedside assessment. Wrist wound assessed, CMST's all within acceptable limits. Palpable radial pulse. Hand has +3 pitting edema, currently elevated above heart level on pillows. initial nancy site on distal wrist is draining bloody drainage. no pus able to be expelled. Proximal wrist wound measures 0.8x1x0.5 with 0.3cm undermining around entire wound. Painful per Pt report. facial grimacing and oww noise noted. Both wounds are currently in inflammatory stage at this time. Main goal is to improve infection which is being handled by MD's. Wound nurses goal is to manage drainage, which is expected to increase over the next few days d/t pitting edema fluid traveling proximally and escaping through wound sites. Recommendations are as follows: Cleanse PROXIMAL wrist wound w/anasept cleanser. Let dwell 2 minuets. Pat dry. Apply skin prep to stone-wound skin. Using cotton applicator pack [email or web address] Ag rope into wound. Cover with 2x2 and tegaderm. Change every other day and PRN. Cleanse DISTAL wrist wound w/anasept cleanser. Let dwell 2 minuets. Pat dry. Apply skin prep to stone-wound skin. Place piece of xeroform over wound. Cover w/2x2 , secure with tegaderm. Change every other day and PRN. Please feel free to have wound nurse reevaluate wounds and treatment plan when current recommendations no longer seem appropriate.
[2018-03-19 15:42] VITALS: BP 123/88; PULSE 74; RESP 20; TEMP 36.2; O2SAT 94
[2018-03-19] MEDS: Normal Saline Flush 10 ML SYR IVP ×2 (16:55→19:30)
[2018-03-19] MEDS: VANCOMYCIN 1,000 MG in Normal Saline 250 ML 166.667 MG IVPB (18:01)
[2018-03-19 19:35] VITALS: BP 150/78; PULSE 80; RESP 18; TEMP 36.8; O2SAT 95
[2018-03-19 23:56] VITALS: BP 129/75; PULSE 89; RESP 18; TEMP 36.7; O2SAT 98
[2018-03-20] MEDS: Normal Saline Flush 10 ML SYR IVP ×3 (00:10→12:05)
[2018-03-20] MEDS: VANCOMYCIN 1,000 MG in Normal Saline 250 ML 167 MG IVPB ×3 (00:11→12:05)
[2018-03-20 03:30] VITALS: BP 147/77; PULSE 74; RESP 18; TEMP 37; O2SAT 97
[2018-03-20 05:58] LABS: HCT 36.9 % (40.0-50.0); HGB 12.6 g/dL (13.5-17.5); Mean Corp. HGB Concentration 34.1 g/dL (32.0-36.0); Mean Corpuscular Volume 79.2 fL (80-95); Mean Platelet Volume 8.6 fL (8.0-11.0); Platelet Count 425 x1000/uL (130-400); RBC 4.66 m/cumm (4.50-6.00); RBC Distribution Width 12.5 % (11.8-14.1); White Blood Cell Count 7.26 k/cumm (4.4-10.8)
[2018-03-20 06:06] LABS: Anion Gap 8.6 mmol/L (3-11); BUN 6 mg/dL (7-18); CO2 25.4 mmol/L (21.0-32.0); CREATININE 0.82 mg/dL (0.70-1.30); Calcium 9.1 mg/dL (8.5-10.1); Chloride 103 mmol/L (98-107); Glucose 109 mg/dL (70-100); Potassium 3.7 mmol/L (3.5-5.1); Sodium 137 mmol/L (136-145)
[2018-03-20 06:08] LABS: C-Reactive Protein 2.95 mg/dL (0.0-0.3)
[2018-03-20 07:39] VITALS: BP 118/77; PULSE 73; RESP 16; TEMP 36.7; O2SAT 97
[2018-03-20] MEDS: Multivitamin TAB 1 TAB PO (08:37)
[2018-03-20] MEDS: Thiamine 100 MG TAB PO (08:37)
[2018-03-20] MEDS: Folic Acid 1 MG TAB PO (08:37)
[2018-03-20] MEDS: risperiDONE 1 MG TAB 4 MG PO ×2 (08:37→19:50)
[2018-03-20 11:11] LABS: Vancomycin, Trough 28.2 ug/mL (10.0-20.0)
[2018-03-20 11:56] VITALS: BP 122/84; PULSE 93; RESP 16; TEMP 36.7; O2SAT 95
[2018-03-20] MEDS: Acetaminophen 325 MG TAB PO (12:04)
[2018-03-20] MEDS: Ibuprofen 600 MG TAB PO (12:04)
[2018-03-20] MEDS: LEVOFLOXACIN 500 MG/100 ML BAG 100 MG IVPB (13:58)
--- NOTE | 2018-03-20 14:05 | PDOC.CMPRO ---
Care Management Progress Note S/O: Anmol was lying in bed, arm elevated when CM met with him. He reported struggling with being inpatient for an extended period of time and reported the provider had felt it likely he would remain at [facility] for at least a few days longer. Anmol reported feeling his wound and hand function has improved and reported considering leaving AMA. CM reviewed best practice and provider recommendations; that Anmol should consider staying at [facility] until the provider could monitor the infection on oral antibiotics to ensure he continued to improve. Anmol processed feeling guilty for being away from his children on [place]. He shared that he now only had three children due to losing his fourth who jumped [place] the [place] to save his cousin and sister who were drowning. Anmol reports this is when he turned to drugs and shares shame at being hospitalized due to injecting. He reports being from his , but states the children missed him on the holiday and the plan was for them all to spend time together. When CM inquired if Anmol had participated in grief counseling he reported calling [facility] for an intake six months ago as he reports his provider; Andreas Hahn thought best practice would be for Anmol to have his medications managed at [facility]. Anmol reports [facility] put him on a waitlist and he has not heard back from them. Anmol processed feeling like he could not stay at [facility] much longer. CM notified provider of above and reviewed outreach information for care management with Anmol for support while inpatient. Anmol reports his friend Jo who spends time with him is capable and willing to provide dressing changes, CM encouraged Anmol to coordinate a time that Jo would be available to meet with RN to review wound care dressing needs and patient/caregiver education regarding care. John MCDONALD reports dressing wound care could change prior to discharge as well. A: 37 year old male admitted to [facility] with cellulitis of his left forearm with a history of substance abuse. P: Anmol will return home when ready per MD; likely he will require a few more days inpatient for continued monitoring. Anmol will follow up with [facility] and his PCP. Plan will be for wound care education to be provided to Anmol and Jo prior to discharge. He will transport via private vehicle with family.
--- NOTE | 2018-03-20 15:31 | PGE_ITS ---
Date of Service Date of service: 03/20/18 Time of Service: 15:30 Assessment and Plan (1) Sepsis: Current visit: Yes Status: Resolved Due to abscess/cellulitis of L wrist in setting of known IV drug abuse. Sepsis has resolved. Blood cultures have yielded no growth at 96 hours. Continue treatment of cellulitis/abscess left wrist. Qualifiers: Sepsis type: sepsis due to unspecified organism Qualified Code(s): A41.9 - Sepsis, unspecified organism (2) Abscess or cellulitis of wrist: Current visit: Yes Status: Acute Improving. Continue vancomycin and levofloxacin. CRP continues to improve. Continue to monitor CRP. Consider transition to oral antibiotics when cellulitis has further improved. Will need ongoing wound care as an outpatient after discharge. (3) IV drug abuse: Current visit: Yes Status: Chronic Hepatitis and HIV negative. Continue to avoid narcotic medications. Continue to monitor for withdrawal. He has been in contact with [facility]. He plans to abstain from IV drugs when he is discharged from the hospital. He would benefit from therapy as well as he has had significant loss in his life. (4) Methamphetamine abuse: Current visit: Yes Status: Chronic Continue to monitor for withdrawal symptoms. (5) Bipolar disorder: Current visit: Yes Status: Chronic Continue risperidone. (6) Tobacco abuse: Current visit: Yes Status: Chronic Continue to encourage smoking cessation. He is currently not committed to quitting. (7) DVT prophylaxis: Current visit: Yes Status: Acute Not required in this 37 year old, active/ambulatory man. (8) Discharge planning issues: Current visit: Yes Status: Acute He will be discharged home to complete course of oral antibiotics when ready. He has a friend that will do wound care at home. This case was discussed with Dr. Peralta who is in agreement. Subjective Interval history since last seen: Anmol Jackson is a pleasant 37 year old man with a history of IV drug abuse who is currently being treated for sepsis due to cellulitis/abscess to left wrist with IV Vancomycin and Levaquin. He reports that the edema in his left hand continues to improve, the wounds continue to drain and have saturated the dressing. He is able to move the fingers on his left hand and bend at the wrist more easily today. He has less pain in the left wrist. He has been elevating his LUE. He denies IBARRA, fever, diaphoresis, chest pain/pressure, palpitations, shortness of breath, cough, wheeze, he is eating and drinking well. His bowels and bladder are functioning normally. He is awaiting a call back from [facility] to get set up with their services. He has a friend that stays with him that can help with dressing changes upon discharge. Exam Narrative Exam Narrative: General: Alert and oriented X3, laying in bed, LUE elevated. wounds initially dressed, erythema immediately surrounding wounds, bloody drainage noted on both dressings. he is able to move fingers and bend wrist. Skin: dressings removed by nursing. 2 open areas noted. the distal site is healing well with bloody drainage noted. the proximal site is open with tunneling under skin, reported yellow drainage on dressing, erythema surrounding both wounds, edema improving. Wound bed appears to be healthy tissue. HEENT: Pupils equal and round, EOMI, MMM, poor dentition with broken teeth throughout. Neck: supple without JVD. Cardiovascular: RRR, non-tachycardic, no m/r/g Lungs: respirations even and unlabored, lung sounds with wheezing noted throughout. Gastrointestinal: abdomen soft, nontender, nondistended with normoactive bowel sounds. Extremities: no edema, clubbing, or cyanosis of BLE's. L wrist (as above), with edema, improving, left radial pulse intact, CMST intact. Objective Objective Clinical Data: Abnormal lab results 03/19/18 03/20/18 03/20/18 Range/Units 15:20 05:35 05:35 Hgb (13.5-17.5) g/dL Hct (40.0-50.0) % MCV (80-95) fL Plt Count (130-400) x1000/uL BUN 6 L (7-18) mg/dL Glucose 109 H (70-100) mg/dL C-Reactive Protein 2.95 H (0.0-0.3) mg/dL Vancomycin Trough 28.2 H* (10.0-20.0) ug/mL 03/20/18 Range/Units 05:35 Hgb 12.6 L (13.5-17.5) g/dL Hct 36.9 L (40.0-50.0) % MCV 79.2 L (80-95) fL Plt Count 425 H (130-400) x1000/uL BUN (7-18) mg/dL Glucose (70-100) mg/dL C-Reactive Protein (0.0-0.3) mg/dL Vancomycin Trough (10.0-20.0) ug/mL Vital Signs Temperature 36.7 C 03/20/18 11:56 Temperature Source Tympanic 03/20/18 11:56 Pulse 93 H 03/20/18 11:56 Pulse Rhythm Regular 03/20/18 08:35 Respiratory Rate 16 03/20/18 11:56 Respiratory Effort 03/20/18 08:35 Respiratory Depth Normal 03/20/18 08:35 Respiratory Pattern Normal 03/20/18 08:35 Blood Pressure 122/84 03/20/18 11:56 Pulse Oximetry 95 03/20/18 11:56 Oxygen Delivery Method Room Air 03/20/18 11:56 Oxygen Flow Rate 0 03/20/18 11:56 Pain Level 2 03/20/18 13:04 Comment 03/20/18 03:30 Intake & Output 03/19/18 03/20/18 03/20/18 23:59 11:59 23:59 Intake Total 3093.323 / 4403.323 2090 / 2340 250 / 2340 Balance 3093.323 / 4403.323 2090 / 2340 250 / 2340 Weight 93.7 kg Intake: IV 1643.323 / 2593.323 500 / 750 250 / 750 Oral 1450 / 1810 1590 / 1590 Other: Urine Appearance Clear Clear Comment Pt voiding independently per home routine. Denies issues. VOIDING WELL INDEP INTOILET Voiding Methods Toilet Toilet Laboratory Results WBC 7.26 k/cumm (4.4-10.8) 03/20/18 05:35 RBC 4.66 m/cumm (4.50-6.00) 03/20/18 05:35 Hgb 12.6 g/dL (13.5-17.5) L 03/20/18 05:35 Hct 36.9 % (40.0-50.0) L 03/20/18 05:35 MCV 79.2 fL (80-95) L 03/20/18 05:35 MCH 27.0 pg (27.0-33.0) 03/20/18 05:35 MCHC 34.1 g/dL (32.0-36.0) 03/20/18 05:35 RDW 12.5 % (11.8-14.1) 03/20/18 05:35 Plt Count 425 x1000/uL (130-400) H 03/20/18 05:35 MPV 8.6 fL (8.0-11.0) 03/20/18 05:35 Immature Gran % 0.1 03/19/18 06:50 Neutrophils % 58.3 03/19/18 06:50 Lymphocytes % 28.7 03/19/18 06:50 Monocytes % 6.9 03/19/18 06:50 Eosinophils % 5.6 03/19/18 06:50 Basophils % 0.4 03/19/18 06:50 Absolute Neutrophils 4.57 k/cumm (1.2-6.7) 03/19/18 06:50 Absolute Lymphocytes 2.25 k/cumm (1.2-3.4) 03/19/18 06:50 Absolute Monocytes 0.54 k/cumm (0.11-0.7) 03/19/18 06:50 Absolute Eosinophils 0.44 k/cumm (0.0-0.7) 03/19/18 06:50 Absolute Basophils 0.03 k/cumm (0.0-0.2) 03/19/18 06:50 Sodium 137 mmol/L (136-145) 03/20/18 05:35 Potassium 3.7 mmol/L (3.5-5.1) 03/20/18 05:35 Chloride 103 mmol/L (98-107) 03/20/18 05:35 Carbon Dioxide 25.4 mmol/L (21.0-32.0) 03/20/18 05:35 Anion Gap 8.6 mmol/L (3-11) 03/20/18 05:35 BUN 6 mg/dL (7-18) L 03/20/18 05:35 Creatinine 0.82 mg/dL (0.70-1.30) 03/20/18 05:35 Estimated GFR/1.73 m2 >= 60.00 (mL/min/1.73m2) 03/20/18 05:35 Glucose 109 mg/dL (70-100) H 03/20/18 05:35 Lactate 1.7 mmol/L (0.6-1.4) H 03/17/18 09:10 Calcium 9.1 mg/dL (8.5-10.1) 03/20/18 05:35 Magnesium 2.0 mg/dL (1.8-2.4) 03/19/18 06:50 Total Bilirubin 0.5 mg/dL (0.2-1.0) 03/16/18 10:50 AST 13 U/L (15-37) L 03/16/18 10:50 ALT 17 U/L (12-78) 03/16/18 10:50 Alkaline Phosphatase 70 U/L (46-116) 03/16/18 10:50 C-Reactive Protein 2.95 mg/dL (0.0-0.3) H 03/20/18 05:35 Total Protein 7.5 g/dL (6.4-8.2) 03/16/18 10:50 Albumin 3.0 g/dL (3.4-5.0) L 03/16/18 10:50 Vancomycin Trough 28.2 ug/mL (10.0-20.0) H* 03/19/18 15:20 Urine Opiates Screen Negative (Negative) 03/16/18 14:22 Urine Methadone Screen Negative (Negative) 03/16/18 14:22 Ur Barbiturates Screen Negative (Negative) 03/16/18 14:22 Ur Tricyclics Screen Negative (Negative) 03/16/18 14:22 Ur Amphetamines Screen Negative (Negative) 03/16/18 14:22 U Benzodiazepines Scrn Negative (Negative) 03/16/18 14:22 Urine Cocaine Screen Negative (Negative) 03/16/18 14:22 Ur THC Screen Positive (Negative) 03/16/18 14:22 Ethyl Alcohol < 3.0 mg/dL (<3) 03/16/18 14:04 Hep Bs Antigen Negative (NEGAT) 03/18/18 06:30 Hep Bs Antibody Negative 03/18/18 06:30 Hep Bs Antibody, Quant 5.3 mIU/mL 03/18/18 06:30 Hep B Core Total Ab Negative (NEGAT) 03/18/18 06:30 Hepatitis C Antibody Negative (NEGAT) 03/18/18 06:30 HIV 1&2 Ag/Ab, 4th Gen Negative (NEGAT) 03/18/18 06:30
[2018-03-20 16:18] VITALS: BP 133/83; PULSE 87; RESP 18; TEMP 37; O2SAT 94
--- NOTE | 2018-03-20 16:34 | CMPROGNOTE_ITS ---
Care Management Progress Note S/O: Anmol was lying in bed, arm elevated when CM met with him. He reported struggling with being inpatient for an extended period of time and reported the provider had felt it likely he would remain at [facility] for at least a few days longer. Anmol reported feeling his wound and hand function has improved and reported considering leaving AMA. CM reviewed best practice and provider recommendations; that Anmol should consider staying at [facility] until the provider could monitor the infection on oral antibiotics to ensure he continued to improve. Anmol processed feeling guilty for being away from his children on [place]. He shared that he now only had three children due to losing his fourth who jumped [place] to save his cousin and sister who were drowning. Anmol reports this is when he turned to drugs and shares shame at being hospitalized due to injecting. He reports being from his , but states the children missed him on the holiday and the plan was for them all to spend time together. When CM inquired if Anmol had participated in grief counseling he reported calling [facility] for an intake six months ago as he reports his provider; Andreas Hahn thought best practice would be for Anmol to have his medications managed at [facility]. Anmol reports [facility] put him on a waitlist and he has not heard back from them. Anmol processed feeling like he could not stay at [facility] much longer. CM notified provider of above and reviewed outreach information for care management with Anmol for support while inpatient. Anmol reports his friend Jo who spends time with him is capable and willing to provide dressing changes, CM encouraged Anmol to coordinate a time that Jo would be available to meet with RN to review wound care dressing needs and patient/caregiver education regarding care. John MCDONALD reports dressing wound care could change prior to discharge as well. A: 37 year old male admitted to [facility] with cellulitis of his left forearm with a history of substance abuse. P: Anmol will return home when ready per MD; likely he will require a few more days inpatient for continued monitoring. Anmol will follow up with [facility] and his PCP. Plan will be for wound care education to be provided to Anmol and Jo prior to discharge. He will transport via private vehicle with family.
[2018-03-20 18:02] LABS: Vancomycin, Trough 21.5 ug/mL (10.0-20.0)
[2018-03-20 19:24] VITALS: BP 114/58; PULSE 84; RESP 17; TEMP 36.6; O2SAT 95
[2018-03-20] MEDS: VANCOMYCIN 1,250 MG in Normal Saline 250 ML 166.667 MG IVPB (19:50)
[2018-03-20 23:18] VITALS: BP 122/82; PULSE 85; RESP 16; TEMP 37; O2SAT 95
[2018-03-21] MEDS: VANCOMYCIN 1,250 MG in Normal Saline 250 ML 167 MG IVPB (03:48)
[2018-03-21 04:01] VITALS: BP 127/83; PULSE 86; RESP 17; TEMP 36.2; O2SAT 95
[2018-03-21 07:20] VITALS: BP 113/74; PULSE 74; RESP 19; TEMP 36.7; O2SAT 96
[2018-03-21 07:28] LABS: C-Reactive Protein 1.69 mg/dL (0.0-0.3)
[2018-03-21] MEDS: Multivitamin TAB 1 TAB PO (07:41)
[2018-03-21] MEDS: Thiamine 100 MG TAB PO (07:41)
[2018-03-21] MEDS: risperiDONE 1 MG TAB 4 MG PO (07:42)
[2018-03-21] MEDS: Folic Acid 1 MG TAB PO (07:42)
--- NOTE | 2018-03-21 10:28 | PDOC.CMPRO ---
- If Service Date Differs Date of service: 03/21/18 Time of Service: 10:28 Care Management Progress Note S/O: Anmol is lying in bed, talking on the phone, when CM visits this morning. He is engaged in conversation and talkative and reports that he feels well and is ready for discharge. Discussion regarding dressing changes has ensued as it is not believed that Anmol will be compliant with changes on his own. CM discussed the importance of dressing changes with Anmol and he 'swore on his son's life' that he would follow up with his PCP on Friday and any day after that as necessary. Anmol reported that his friend, Jo, who was slated to assist with dressings had left for [place] the night before. A: 37 year old male admitted to [facility] with cellulitis of his left forearm with a history of substance abuse. P: Anmol will return home when ready per MD; likely he will require a few more days inpatient for continued monitoring. Anmol will follow up with [facility] and his PCP. . He will transport via private vehicle with family. CM will continue to offer support to patient and care team regarding discharge planning.
--- NOTE | 2018-03-21 10:51 | CMPROGNOTE_ITS ---
- If Service Date Differs Date of service: 03/21/18 Time of Service: 10:28 Care Management Progress Note S/O: Anmol is lying in bed, talking on the phone, when CM visits this morning. He is engaged in conversation and talkative and reports that he feels well and is ready for discharge. Discussion regarding dressing changes has ensued as it is not believed that Anmol will be compliant with changes on his own. CM discussed the importance of dressing changes with Anmol and he 'swore on his son 's life' that he would follow up with his PCP on Friday and any day after that as necessary. Anmol reported that his friend, Jo, who was slated to assist with dressings had left for [place] the night before. A: 37 year old male admitted to [facility] with cellulitis of his left forearm with a history of substance abuse. P: Anmol will return home when ready per MD; likely he will require a few more days inpatient for continued monitoring. Anmol will follow up with [facility] and his PCP. . He will transport via private vehicle with family. CM will continue to offer support to patient and care team regarding discharge planning.
--- NOTE | 2018-03-21 10:51 | PDOC.CMDIS ---
- If Service Date Differs Date of service: 03/21/18 Time of Service: 10:51 LACE Index Scoring Tool - Questions: Length of Stay (in days): 4 - 6 Acuity (Admit via E.D.?): Yes E.D. Visits: 2 - Answers: Total Score: 9 Risk of Readmission: Low Risk Care Management Discharge Reason for Hospitalization: Cellulitis in left forearm Discharge Plan: Anmol will discharge home with no services when medically ready per MD. Patient will need to follow up with his PCP on Friday and PRN for dressing changes. Anmol will additionally follow up with [facility] on Friday, 03/23 and [facility]. Anmol will transport via private vehicle with a friend. Patient/Family Education Needs: Discharge education, any limitations, and follow up plan of care. Ask Me Three discussion. - MH Services (Omit if N/A) Current MH Services: [facility]
--- NOTE | 2018-03-21 10:55 | CMDISCH_ITS ---
- If Service Date Differs Date of service: 03/21/18 Time of Service: 10:51 LACE Index Scoring Tool - Questions: Length of Stay (in days): 4 - 6 Acuity (Admit via E.D.?): Yes E.D. Visits: 2 - Answers: Total Score: 9 Risk of Readmission: Low Risk Care Management Discharge Reason for Hospitalization: Cellulitis in left forearm Discharge Plan: Anmol will discharge home with no services when medically ready per MD. Patient will need to follow up with his PCP on Friday and PRN for dressing changes. Anmol will additionally follow up with [facility] on Friday, 03/23 and [facility]. Anmol will transport via private vehicle with a friend. Patient/Family Education Needs: Discharge education, any limitations, and follow up plan of care. Ask Me Three discussion. - MH Services (Omit if N/A) Current MH Services: [facility]
[2018-03-21 11:50] VITALS: BP 123/86; PULSE 122; RESP 18; TEMP 36.4; O2SAT 96
[2018-03-21] MEDS: VANCOMYCIN 1,250 MG in Normal Saline 250 ML 166.7 MG IVPB (12:04)
[2018-03-21] MEDS: Normal Saline 500 ML 30 ML IV (12:05)
--- NOTE | 2018-03-21 12:28 | W.PM.DS.N ---
Date of service: 03/21/18 Time of Service: 12: DS: Diagnosis Discharge Diagnosis (1) Sepsis: Status: Resolved (2) Abscess or cellulitis of wrist: Status: Acute (3) IV drug abuse: Status: Chronic (4) Methamphetamine abuse: Status: Chronic Discharge Plan Disposition Patient Disposition: HOME Condition: Improving Discharge Details Reason For Visit: SEPSIS DUE TO CELLULITIS/ABSCESS NIMA Admit Date/Time: 03/16/18 12:24 Admit Provider: Deidre Peralta Attending Provider: Deidre Peralta Primary Care Provider: Andreas Hahn Hospital Course Hospital Course: CC: Left hand swelling, redness, and pain HPI: 37 year old male with PMHx of IV drug use, a recent abscess of Radial L wrist requiring I&D at the [facility] ED on 03/06/18, having completed an outpatient course of clindamycin with significant improvement, as well as bipolar disorder and a question of schizophrenia vs schizoaffective disorder, who presented to [facility] ED again on 03/19 complaining of worsening L wrist pain with a new abscess formation. The abscess was I&D'ed in the ER, but because the patient appeared quite clinically ill and had a leucocytosis as well as an area of surrounding cellulitis, he was referred for admission for further evaluation and treatment. The patient is a chronic IV drugs use, and also admits to crystal meth, last having used 2 weeks ago. His IV drug of choice is suboxone. He consents to HIV and Hepatitis testing. Hospital Course: (1) Sepsis: Secondary to abscess/cellulitis of L wrist in setting of known IVDA. Sepsis has resolved. Blood cultures have yielded no growth at 96 hours. Continue antibiotic therapy as below. (2) Abscess or cellulitis of wrist: Vastly improved clinically. Maintained on vancomycin and levofloxacin - unfortunately culture data lacking as I&D was not sent for culture. CRP improved to 1.69 from original value of 16.08. Will change to oral Bactrim and Levofloxacin empirically without culture data for guidance. Patient will follow-up with his PCP in 2 days' time (friday) to ensure close outpatient follow-up. Plan on 14 day total course of antibiotic therapy - note was made of Sulfa allergy. Given multiple recent antibiotics will also ensure a probiotic at discharge. (3) IV drug abuse: Hepatitis panel and HIV negative. Narcotic medications were avoided while patient was hospitalized. He has been in contact with [facility] with plans for follow-up and intention to abstain from IV drugs when he is discharged from the hospital. Case Management has been assisting with paperwork as well. (4) Bipolar disorder: Continue risperidone. (6) Tobacco abuse: Continue to encourage cessation. He is currently not committed to quitting. Home Meds and New Rx's Prescriptions: New clindamycin HCl 300 mg capsule 300 mg PO TID Qty: 27 RF: 0 clindamycin HCl 150 mg capsule 150 mg PO TID Qty: 27 RF: 0 levofloxacin 500 mg tablet 500 mg PO DAILY Qty: 9 RF: 0 Lactobacillus acidophilus capsule 500 mmu cells PO TID Qty: 90 RF: 0 Continued risperidone 4 mg Tablet 4 mg PO BID RF: 0 Discharge Instructions Instructions: Abscess (GEN) Activity:: Activity as Tolerated Equipment/Supplies:: No Equipment Needed Diet:: As Tolerated Discharge Orders Discharge Orders: Discharge Order (Routine); Ordered 03/21/18 Ordered By: Lorenzo Vaz Exam Narrative Exam Narrative: General: Patient appears comfortable, AAOX3, NAD Neck: Supple CV: Regular, nontachycardic, S1S2, No rubs, murmurs, or gallops. Pulmonary: Clear to auscultation bilaterally, no crackles, wheezing, or rhonchi Abdomen: + Bowel Sounds, soft, nontender, nondistended Vascular: No lower extremity edema Skin: Left upper extremity - area of erythema on dorsal aspect of left forearm and proximal hand has essentially resolved, certainly compared to initial demarcations. No warmth. Psych: Normal mood and affect. DS: Data Vitals/I&O Vitals and I&O: Vital Signs Temperature 36.7 C 03/21/18 07:20 Temperature Source Tympanic 03/21/18 07:20 Pulse 74 03/21/18 07:20 Pulse Rhythm Regular 03/21/18 07:45 Respiratory Rate 19 03/21/18 07:20 Respiratory Effort Non-Labored 03/21/18 07:45 Respiratory Depth Normal 03/21/18 07:45 Respiratory Pattern Normal 03/21/18 07:45 Blood Pressure 113/74 03/21/18 07:20 Pulse Oximetry 96 03/21/18 07:20 Oxygen Delivery Method Room Air 03/21/18 07:20 Oxygen Flow Rate 0 12/29/18 07:20 Pain Level 0 03/21/18 07:20 Comment 03/20/18 03:30 Intake & Output 03/20/18 03/21/18 03/21/18 23:59 11:59 23:59 Intake Total 1175 / 3265 739.833 / 739.833 0 / 739.833 Balance 1175 / 3265 739.833 / 739.833 0 / 739.833 Weight 94 kg Intake: IV 515 / 1015 499.833 / 499.833 0 / 499.833 Oral 660 / 2250 240 / 240 Other: Urine Color Yellow Urine Appearance Clear Urine Odor Normal Comment Void x 1 in toilet. Voiding Methods Toilet Completed studies during hospitalization [Text1]: XR forearm LT 03/16/2018 SYMPTOMS/DIAGNOSIS: RECURRENT INFECTION, IV DRUG ABUSE, ? FOREIGN BODY LEFT FOREARM: Two views were obtained. No bony abnormality or foreign body identified. Labs on day of discharge: Labs from last 24 hours 03/21/18 03/20/18 07:00 17:13 C-Reactive Protein 1.69 H Vancomycin Trough 21.5 H* Preliminary micro results at discharge 03/16/18 10:40 Blood Culture - Preliminary Blood NO GROWTH 96 HOURS 03/16/18 10:58 Blood Culture - Preliminary Blood NO GROWTH 96 HOURS [facility] Medical History Abscess of left upper extremity (Acute) IV drug user (Acute) Polysubstance abuse (Acute) Bipolar disorder (Chronic) Schizoaffective disorder, chronic condition (Suspected) Surgical History Surgical complication involving left eye (Suspected) History of repair of anterior cruciate ligament of right knee (Resolved) Status post incision and drainage (Resolved) Family History Other Diabetes Heart disease Social History Smoking/Tobacco Use Status: Current every day tobacco type: cigarettes counseling given: provider counseling, support medications and counseling >3 minutes alcohol intake: former substance use type: heroin, opiates, painkillers, IV drugs, methamphetamine and prescription drug counseling given: Yes counseling provided: provider counseling
--- NOTE | 2018-03-21 12:40 | DSE_ITS ---
Date of service: 03/21/18 Time of Service: 12: DS: Diagnosis Discharge Diagnosis (1) Sepsis: Status: Resolved (2) Abscess or cellulitis of wrist: Status: Acute (3) IV drug abuse: Status: Chronic (4) Methamphetamine abuse: Status: Chronic Discharge Plan Disposition Patient Disposition: HOME Condition: Improving Discharge Details Reason For Visit: SEPSIS DUE TO CELLULITIS/ABSCESS NIMA Admit Date/Time: 03/16/18 12:24 Admit Provider: Deidre Peralta Attending Provider: Deidre Peralta Primary Care Provider: Andreas Hahn Hospital Course Hospital Course: CC: Left hand swelling, redness, and pain HPI: 37 year old male with PMHx of IV drug use, a recent abscess of Radial L wrist requiring I&D at the [facility] ED on 03/06/18, having completed an outpatient course of clindamycin with significant improvement, as well as bipolar disorder and a question of schizophrenia vs schizoaffective disorder, who presented to [facility] ED again on 03/19 complaining of worsening L wrist pain with a new abscess formatio n. The abscess was I&D'ed in the ER, but because the patient appeared quite clinically ill and had a leucocytosis as well as an area of surrounding cellulitis, he was referred for admission for further evaluation and treatment. The patient is a chronic IV drugs use, and also admits to crystal meth, last having used 2 weeks ago. His IV drug of choice is suboxone. He consents to HIV and Hepatitis testing. Hospital Course: (1) Sepsis: Secondary to abscess/cellulitis of L wrist in setting of known IVDA. Sepsis has resolved. Blood cultures have yielded no growth at 96 hours. Continue antibiotic therapy as below. (2) Abscess or cellulitis of wrist: Vastly improved clinically. Maintained on vancomycin and levofloxacin - unfortunately culture data lacking as I&D was not sent for culture. CRP improved to 1.69 from original value of 16.08. Will change to oral Bactrim and Levofloxacin empirically without culture data for guidance. Patient will follow- up with his PCP in 2 days' time (friday) to ensure close outpatient follow-up. Plan on 14 day total course of antibiotic therapy - note was made of Sulfa allergy. Given multiple recent antibiotics will also ensure a probiotic at discharge. (3) IV drug abuse: Hepatitis panel and HIV negative. Narcotic medications were avoided while patient was hospitalized. He has been in contact with [facility] with plans for follow-up and intention to abstain from IV drugs when he is discharged from the hospital. Case Management has been assisting with paperwork as well. (4) Bipolar disorder: Continue risperidone. (6) Tobacco abuse: Continue to encourage cessation. He is currently not committed to quitting. Home Meds and New Rx's Prescriptions: New clindamycin HCl 300 mg capsule 300 mg PO TID Qty: 27 RF: 0 clindamycin HCl 150 mg capsule 150 mg PO TID Qty: 27 RF: 0 levofloxacin 500 mg tablet 500 mg PO DAILY Qty: 9 RF: 0 Lactobacillus acidophilus capsule 500 mmu cells PO TID Qty: 90 RF: 0 Continued risperidone 4 mg Tablet 4 mg PO BID RF: 0 Discharge Instructions Instructions: Abscess (GEN) Activity:: Activity as Tolerated Equipment/Supplies:: No Equipment Needed Diet:: As Tolerated Discharge Orders Discharge Orders: Discharge Order (Routine); Ordered 03/21/18 Ordered By: Lorenzo Vaz Exam Narrative Exam Narrative: General: Patient appears comfortable, AAOX3, NAD Neck: Supple CV: Regular, nontachycardic, S1S2, No rubs, murmurs, or gallops. Pulmonary: Clear to auscultation bilaterally, no crackles, wheezing, or rhonchi Abdomen: + Bowel Sounds, soft, nontender, nondistended Vascular: No lower extremity edema Skin: Left upper extremity - area of erythema on dorsal aspect of left forearm and proximal hand has essentially resolved, certainly compared to initial demarcations. No warmth. Psych: Normal mood and affect. DS: Data Vitals/I&O Vitals and I&O: Vital Signs Temperature 36.7 C 03/21/18 07:20 Temperature Source Tympanic 03/21/18 07:20 Pulse 74 03/21/18 07:20 Pulse Rhythm Regular 03/21/18 07:45 Respiratory Rate 19 03/21/18 07:20 Respiratory Effort Non-Labored 03/21/18 07:45 Respiratory Depth Normal 03/21/18 07:45 Respiratory Pattern Normal 03/21/18 07:45 Blood Pressure 113/74 03/21/18 07:20 Pulse Oximetry 96 03/21/18 07:20 Oxygen Delivery Method Room Air 03/21/18 07:20 Oxygen Flow Rate 0 03/21/18 07:20 Pain Level 0 03/21/18 07:20 Comment 03/20/18 03:30 Intake & Output 03/20/18 03/21/18 03/21/18 23:59 11:59 23:59 Intake Total 1175 / 3265 739.833 / 739.833 0 / 739.833 Balance 1175 / 3265 739.833 / 739.833 0 / 739.833 Weight 94 kg Intake: IV 515 / 1015 499.833 / 499.833 0 / 499.833 Oral 660 / 2250 240 / 240 Other: Urine Color Yellow Urine Appearance Clear Urine Odor Normal Comment Void x 1 in toilet. Voiding Methods Toilet Completed studies during hospitalization [Text1]: XR forearm LT 03/16/2018 SYMPTOMS/DIAGNOSIS: RECURRENT INFECTION, IV DRUG ABUSE, ? FOREIGN BODY LEFT FOREARM: Two views were obtained. No bony abnormality or foreign body identified. Labs on day of discharge: Labs from last 24 hours 03/21/18 03/20/18 07:00 17:13 C-Reactive Protein 1.69 H Vancomycin Trough 21.5 H* Preliminary micro results at discharge 03/16/18 10:40 Blood Culture - Preliminary Blood NO GROWTH 96 HOURS 03/16/18 10:58 Blood Culture - Preliminary Blood NO GROWTH 96 HOURS [facility] Medical History Abscess of left upper extremity (Acute) IV drug user (Acute) Polysubstance abuse (Acute) Bipolar disorder (Chronic) Schizoaffective disorder, chronic condition (Suspected) Surgical History Surgical complication involving left eye (Suspected) History of repair of anterior cruciate ligament of right knee (Resolved) Status post incision and drainage (Resolved) Family History Other Diabetes Heart disease Social History Smoking/Tobacco Use Status: Current every day tobacco type: cigarettes counseling given: provider counseling, support medications and counseling >3 minutes alcohol intake: former substance use type: heroin, opiates, painkillers, IV drugs, methamphetamine and prescription drug counseling given: Yes counseling provided: provider counseling
== END 2018-03-21 14:15 | disposition home or self-care (01) | DRG 872 ==
LOC: ER 12:54 → MS 15:37
PROVIDERS: Nurse Practitioner; Admitting Provider Internal Medicine; Emergency Provider Physician Assistant; PCP Specialist/Technologist Athletic Trainer; Visit Provider Internal Medicine
DX: A41.9 Sepsis, unspecified organism (principal); L03.114 Cellulitis of left upper limb; L02.413 Cutaneous abscess of right upper limb; F19.10 Other psychoactive substance abuse, uncomplicated; F31.9 Bipolar disorder, unspecified; Z11.4 Encounter for screening for human immunodeficiency virus [HIV]; Z13.89 Encounter for screening for other disorder; F17.210 Nicotine dependence, cigarettes, uncomplicated; E83.42 Hypomagnesemia; E87.6 Hypokalemia
CPT/HCPCS: 10061; 36415; 80048; 80053; 80307; 85027; 86704; 86706; 86803; 87040; 87340; 87389; 96361; 96365; 96366; 99222; 99223; 99232; 99239; 99285; 73090; 80202; 80320; 83605; 83735; 85025; 86140; 99284; J1956

== ENCOUNTER 2020-04-02 13:07 | Inpatient (IN) | payer MEDICARE, MEDICAID, SELFPAY ==
[2020-04-02] VITALS (46 sets, daily range): BP systolic 99–171; BP diastolic 67–106; PULSE 88–194; RESP 4–29; TEMP 36.8–37.4; O2SAT 89–100
--- NOTE | 2020-04-02 13:00 | RT.EKG_ITS ---
APPROVED REPORT Exam: Resting ECG Patient Location: E HR:123 bpm ECG Measurements Heart Rate 123 AXIS TX 140 P 61 QRSd 118 QRS -7 QT 328 T 31 QTc 468 Conclusion Sinus tachycardia...rate> 99 Multiform ventricular premature complexes...short R-R, variable morphology Incomplete right bundle branch block...QRSd >112, terminal axis(90,270) I have reviewed and interpreted ECG and agree with software generated interpretation.
--- NOTE | 2020-04-02 13:00 | DI.CT_ITS ---
EXAM: CT HEAD WO CLINICAL HISTORY: unresponsive, r/o acute bleed. TECHNIQUE: Imaging Protocol: Axial computed tomography images with coronal and sagittal reformatted images were created and reviewed COMPARISON: No exams were available for comparison FINDINGS: The exam is limited by motion. The patient was unable to follow directions. Ventricles and Extra axial spaces: Normal in size and morphology for the patient's age. Hemorrhage: None. Cerebral parenchyma: Normal. Midline shift: None. Brainstem/Cerebellum: Normal. Calvarium: Normal. Visualized Paranasal sinuses/Mastoids: Clear. Soft Tissues: Unremarkable. IMPRESSION: No acute intracranial process. RADIATION DOSE DELIVERED: 1,953.4mGy.cm Total DLP DATA REPOSITORY: All CT scans at this facility are submitted to the National Radiology Data Registry (NRDR) Dose Index Registry (DIR) with the [employer] (ACR). RADIATION OPTIMIZATION: All CT scans at this facility use at least one of these dose optimization te chniques: automated exposure control; mA and/or kV adjustment per patient size (includes targeted exa ms where dose is matched to clinical indication); or iterative reconstruction.
--- NOTE | 2020-04-02 13:14 | DI.RAD_ITS ---
EXAM: XR CHEST 1V IN DI DEPT CLINICAL HISTORY: unresponsive, r/o acute disease TECHNIQUE: 2D digital imaging was performed. COMPARISON: No exams were available for comparison FINDINGS: Limited exam due to mild motion and, under penetration and poor pulmonary inflation. LUNGS: Clear. No pleural abnormality seen. HEART: Normal. MEDIASTINUM: Normal. BONES: Unremarkable. IMPRESSION: No acute pulmonary findings. DATA REPOSITORY: RADIATION DOSE DELIVERED:
[2020-04-02] MEDS: Normal Saline Flush 10 ML SYR IVP ×2 (13:16→16:35)
--- NOTE | 2020-04-02 13:19 | W.ED.GENAD ---
Discharge Plan Disposition Patient Disposition: [facility] INPATIENT Condition: Fair Discharge Details Clinical Impression: Polysubstance overdose, Unresponsive episode, Elevated troponin Admit Date/Time: 04/02/20 14:55 Admit Provider: Louis Lee Attending Provider: Louis Lee Primary Care Provider: Unknown,Unknown ED Provider: Nieves Zhang Discharge Data Discharge Date/Time-TO BE ENTERED AT DEPARTURE: 04/02/20 16:12 Medical Decision Making 1315 -- 39-year-old male with a history of ITP and previous polysubstance overdose presents after found unresponsive by family with possible polysubstance overdose. Family stated that he has bought methadone, gabapentin and Adderall off the street in addition to taking extra Lyrica. Patient initially with sonorous respirations but with positive gag reflex. Oxygen saturation 94% on nonrebreather. Pupils 2 to 3 mm. Patient given 0.4 mg Narcan IV with some response. ABG notes a pH of 7.36, PCO2 43, PO2 5. Patient then placed on 6 L nasal cannula oxygen with greater than 95% oxygen saturation. EKG notes a rate of 123, sinus with no acute ST ischemic findings. Patient appears to be protecting his airway. Patient taken directly to CT which was negative for bleed. Chest x-ray negative. Upon return from CT, patient more awake and alert, able to state his name and year and follow from commands. He does remain lethargic and falling asleep but is protecting his airway. 1500 -- Labs reviewed and note a white blood cell count of 13. INR 1.4. Lactate 7.8. Troponin 0.08, suspect demand. Negative salicylate, acetaminophen and alcohol level. Suspect current presentation likely due to polysubstance overdose. Will admit patient for observation and continued monitoring. Case discussed with hospitalist who accepts patient for admission. Medical Records Medical records reviewed: Yes I reviewed the patient's medical records. Imaging Data Radiologic Study: Radiologist's impression: CT HEAD WO CLINICAL HISTORY: unresponsive, r/o acute bleed. TECHNIQUE: Imaging Protocol: Axial computed tomography images with coronal and sagittal reformatted images were created and reviewed COMPARISON: No exams were available for comparison FINDINGS: The exam is limited by motion. The patient was unable to follow directions. Ventricles and Extra axial spaces: Normal in size and morphology for the patient's age. Hemorrhage: None. Cerebral parenchyma: Normal. Midline shift: None. Brainstem/Cerebellum: Normal. Calvarium: Normal. Visualized Paranasal sinuses/Mastoids: Clear. Soft Tissues: Unremarkable. IMPRESSION: No acute intracranial process. XR PORTABLE CHEST AP CLINICAL HISTORY: Fever, hypoxemia. TECHNIQUE: 2D digital imaging was performed. COMPARISON: CR,XR XR CHEST 1V IN DI DEPT from 04/02/2020 FINDINGS: Heart size is normal. The mediastinum is not widened. Lungs remain clear. No infiltrates nor obvious pleural effusions. IMPRESSION: No acute pulmonary findings on this single AP portable view of the chest.Recommend nonportable PA and lateral views when clinically possible. Lab Data Lab results reviewed: Yes I reviewed the patient's lab results. ECG Data Attestation: I personally reviewed and interpreted this ECG (s) as follows: Interpretation: Rate of 123, sinus, no acute ST elevation or depression. ID 140. QRS 118. QTc 468. HPI General Mode of arrival: EMS. Date/Time Provider Initiated Documentation: 04/02/20 13:14. Limitations to Documentation: altered mental status. Information obtained by: EMS. HPI Narrative: Patient is a 39-year-old male with a history of ITP and former polysubstance overdose who presents after being found by family unresponsive this morning. Per EMS arrival, patient's unresponsive on a mattress on the ground either in his bedroom or dining room. He was given 4 mg of intranasal Narcan by family without response. He was given an additional 1 mg intranasal Narcan by EMS without response. EMS states that just prior to arrival he appeared to have a 30 second episode of decorticate posturing. Nurse discussed with patient's over the phone who states that patient has 1 tablet 40 mg methadone on Friday mornings but that he has been buying extra methadone off the street. She also states he has been taking gabapentin 300 mg, 4-5 tabs at bedtime which is also not prescribed. She also stated that he has been taking extra Lyrica that he has prescribed. She stated she thinks he is taking his Risperdal as prescribed. also stated she thought he was taking either Adderall which she bought off the street as well. Related Data Home Medications Medication Instructions Recorded Confirmed albuterol sulfate [Ventolin HFA] 2 inh INHALATION Q4H PRN PRN 04/02/20 04/02/20 methadone 40 mg PO DAILY 04/02/20 04/02/20 pregabalin 75 mg PO TID 04/02/20 04/02/20 risperidone 4 mg PO BID 04/02/20 04/02/20 trazodone 100 mg PO HS PRN PRN 04/02/20 04/02/20 Allergies Allergy/AdvReac Type Severity Reaction Status Date / Time aspirin Allergy Unknown Unverified 04/02/20 13:39 Penicillins Allergy Unknown Unverified 04/02/20 13:39 shrimp Allergy Unknown Unverified 04/02/20 13:39 Review of Systems Unobtainable due to mental status [facility] Medical History (Updated 04/03/20 @ 14:56 by Louis Lee) Idiopathic thrombocytopenic purpura (ITP) Social History Smoking/Tobacco Use Status: Current every day Smoking risk assessment performed?: Yes Exam Const General: lethargic Orientation: alert, awake and other (sonorous respirations) HENIL Head: normal to inspection Ears: hearing grossly normal bilaterally and external ears normal General nose exam: external nose normal Face and sinus: normal facial exam Mouth: mucous membranes dry Teeth and gingiva: dentition normal Throat: posterior oropharynx normal Eyes General: appearance normal, both eyes and all related structures Eyelids: eyelids normal Pupils: PERRL EOM: EOM intact bilaterally Neck Neck: normal visual inspection Lymphatic: no lymphadenopathy noted Chest Chest: normal inspection of the chest Resp Effort & Inspection: normal respiratory effort and able to speak in complete sentences Auscultation: clear to auscultation bilaterally Cardio Rate: regular rate Rhythm: regular rhythm GI Inspection: normal to inspection Palpation: soft, not firm, no guarding, no hepatosplenomegaly, no masses and nontender Auscultation: normal bowel sounds Back/Spine/Pelvis Back: no CVA tenderness Skin General skin exam: no rashes or lesions noted Neuro General: moves all extremities Cranial Nerves: gag reflex normal Extrem General: normal to inspection, full ROM and capillary refill normal Psych Appearance: grossly normal Mental Status: mental status grossly normal Speech and Movement: speech and movement normal Affect: normal affect Thought Process: normal
[2020-04-02] MEDS: Normal Saline 1,000 ML 1000 ML IV (13:24)
[2020-04-02 13:26] LABS: Abs Immature Grans 0.07 10^3/uL (0.0-0.06); Absolute Eosinophil Count 0.01 10^3/uL (0.0-0.7); Absolute Lymphocyte Count 1.11 10^3/uL (1.2-3.4); Absolute Monocyte Count 0.61 10^3/uL (0.1-0.8); Basophils % 0.1; Eosinophils % 0.1; HCT 44.9 % (40.0-50.0); HGB 14.2 g/dL (13.5-17.5); Immature Grans % 0.5; Lactate 7.8 mmol/L (0.6-1.4); MCH 28.2 pg (27.0-33.0); MCHC 31.6 % (32.0-36.0); MCV 89.1 fL (80-95); Monocytes % 4.4; Neutrophils % 86.9; Nucleated RBC 0 %; Platelet Count 326 10^3/uL (130-400); RBC 5.04 10^6/uL (4.36-5.78); RDW 13.8 % (11.8-14.1); RDW-SD 44.4 fL; WBC 13.84 10^3/uL (4.4-10.8)
[2020-04-02 13:27] LABS: BE 0 mmol/L (-2-3); HCO3 25 mmol/L (22-26); pCO2 44 mmHg (35-45); pH 7.37 (7.35-7.45); pO2 401 mmHg (80-105)
[2020-04-02 13:27] LABS: Absolute Basophil Count 0.01 10^3/uL (0.0-0.2); Absolute Neutrophil Count 12.03 10^3/uL (1.2-6.7)
[2020-04-02 13:28] LABS: FIO2 100 %; Site Left Radial; sO2 > 99 % (95-98)
[2020-04-02 13:43] LABS: ALT 81 U/L (16-63); AST 62 U/L (15-37); Albumin 3.6 g/dL (3.4-5.0); Alkaline Phosphatase 68 U/L (46-116); Anion Gap 11.2 mmol/L (3-11); BUN 14 mg/dL (7-18); Bilirubin, Total 0.4 mg/dL (0.2-1.0); CO2 27.8 mmol/L (21.0-32.0); CREATININE 1.88 mg/dL (0.70-1.30); Calcium 8.4 mg/dL (8.5-10.1); Chloride 99 mmol/L (98-107); Estimated GFR 40.15 (mL/min/1.73m2); Glucose 185 mg/dL (74-106); Magnesium 2.3 mg/dL (1.8-2.4); Potassium 4.9 mmol/L (3.5-5.1); Sodium 138 mmol/L (136-145); Total Protein 7.3 g/dL (6.4-8.2)
[2020-04-02 13:45] LABS: ETHANOL BLOOD < 3.0 mg/dL (<3)
[2020-04-02 13:46] LABS: INR 1.4 (0.9-1.1); Troponin I 0.08 ng/mL (<0.06)
[2020-04-02 13:48] LABS: Acetaminophen < 2 ug/mL (10-30)
[2020-04-02] MEDS: Naloxone 0.4 MG/ML VIAL IVP (14:05)
--- NOTE | 2020-04-02 14:09 | DI.VRAD_ITS ---
PROCEDURE INFORMATION: Exam: CT Head Without Contrast Exam date and time: 04/02/2020 1:41 PM Age: 39 years old Clinical indication: Other: Od; Additional info: Best images possible, PT unable to follow directions TECHNIQUE: Imaging protocol: Computed tomography of the head without contrast. COMPARISON: No relevant prior studies available. FINDINGS: Brain: Normal. No hemorrhage. Unremarkable white matter. No mass effect. Cerebral ventricles: No ventriculomegaly. Bones/joints: Unremarkable. No acute fracture. Paranasal sinuses: Visualized sinuses are unremarkable. No fluid levels. Mastoid air cells: Visualized mastoid air cells are well aerated. Soft tissues: Unremarkable. Other findings: Images are degraded by motion. IMPRESSION: No acute intracranial abnormality. Images are severely degraded by motion. Dictated and Authenticated by: Tonia So MD. Ordering:CARLITO Pickett MD
--- NOTE | 2020-04-02 14:09 | DI.VRAD_ITS ---
PROCEDURE INFORMATION: Exam: XR Chest, 1 View Exam date and time: 04/02/2020 1:47 PM Age: 39 years old Clinical indication: Other: Od; Additional info: Best images possible, PT unable to follow directions TECHNIQUE: Imaging protocol: XR of the chest Views: 1 view. COMPARISON: No relevant prior studies available. FINDINGS: Lungs: Unremarkable. No consolidation. Pleural space: Unremarkable. No pleural effusion. No pneumothorax. Heart/Mediastinum: Unremarkable. No cardiomegaly. Bones/joints: Unremarkable. IMPRESSION: No acute findings. Dictated and Authenticated by: Tonia So MD. Ordering:CARLITO Pickett MD
--- NOTE | 2020-04-02 14:15 | RT.EKG_ITS ---
APPROVED REPORT Exam: Resting ECG Patient Location: E HR:111 bpm ECG Measurements Heart Rate 111 AXIS IA 130 P 65 QRSd 111 QRS 11 QT 340 T 24 QTc 463 Conclusion Sinus tachycardia...rate> 99 Nonspecific T abnormalities, anterior leads...T <-0.10mV, V2-V4 I have reviewed and interpreted ECG and agree with software generated interpretation.
[2020-04-02] MEDS: Lidocaine 2% Jelly 6 ML SYR (15:10)
[2020-04-02 15:29] LABS: Bilirubin Negative (Negative); Blood Trace-intact (Negative); Clarity Clear (Clear); Glucose Negative (Negative); Ketones Negative (Negative); Leukocyte Esterase Negative (Negative); Nitrite Negative (Negative); Specific Gravity 1.025 (1.005-1.025); pH 6.5 (5-8)
[2020-04-02 15:39] LABS: *AMPHETAMINES SCREEN URINE Negative (Negative); *BARBITURATES SCREEN URINE Negative (Negative); *BENZODIAZEPINES SCREEN URINE Negative (Negative); Cannabinoids THC POSITIVE (Negative); Cocaine Screen,Urine Negative (Negative); METHADONE URINE SCREEN POSITIVE (Negative); OPIATES URINE SCREEN Negative (Negative)
[2020-04-02 15:44] LABS: Source Nasopharynx
[2020-04-02 15:47] LABS: Tricyclic Antidepressants Negative (Negative)
[2020-04-02 15:51] LABS: Epithelial Cells Few HPF (Negative); Other Cells Few Transitional (Negative)
[2020-04-02 15:52] LABS: Bacteria Negative HPF (Negative); C & S Indicated? Yes; Casts 3-5 Hyaline LPF (Negative); Crystals Few Amorphous HPF (Negative); Mucus Trace (Negative)
--- NOTE | 2020-04-02 16:15 | W.PM.HP.N ---
Date of service: 04/02/20 Time of Service: 16:15 Assessment and Plan Assessment and plan (1) Drug overdose: Status: Acute Assessment and plan: IV fluid hydration, keep n.p.o., provide supplemental oxygenation to maintain saturation greater than 90%. Provide as needed Narcan for respiratory depression. Critical care time spent with the patient 45 minutes including assessing the patient and discussing the case with Dr. Zhang as well as reviewing labs chest x-ray and CT scan and EKG. Additional time was spent doing [id number] ultrasound of his lungs looking for infiltrates in the setting of his bouts of emesis. We will have to watch to see if he desaturates or spikes a fever which would suggest an early pneumonia. Because he is actively wheezing I have ordered scheduled doses of DuoNeb to treat his acute bronchospasm. Qualifiers: Encounter type: initial encounter Injury intent: accidental or unintentional Qualified Code(s): T50.901A - Poisoning by unspecified drugs, medicaments and biological substances, accidental (unintentional), initial encounter (2) Polysubstance (excluding opioids) dependence: Status: Acute Assessment and plan: We will need to verify his methadone dose through his primary care provider or drug treatment program. Present time no methadone will be prescribed until he is mentally alert and current medications have cleared his system and we can verify with his prescriber his home methadone dose. His prescriber needs to find out from the patient why he is taking extra medications and set some boundaries with him if he is going to continue in a narcotic rehab program. (3) Acute kidney injury (nontraumatic): Status: Acute Assessment and plan: IV fluid hydration, Barrera catheter with your room and her to monitor urine output hourly, check CK level to rule out rhabdomyolysis, repeat BMP in the morning History of Present Illness History of Present Illness Chief Complaint: Drug overdose Narrative: 39-year-old male who is opioid dependent and receives prescription medications for methadone and Lyrica who was brought in by EMS after being found unresponsive at home by his family. Family gave him 4 mg of Narcan intranasal prior to EMS arrival and additional 1 mg was given by EMS. Patient had emesis x2 in route to the hospital. Patient also reportedly developed 30 seconds in which he was having decorticate posturing in which it was thought that he may have had a seizure. Upon arrival to emergency department he was having sonorous respirations but reportedly had a positive gag reflex. Oxygen saturation was 94% on nonrebreather. Pupils were 2 to 3 mm pinpoint but reactive. He was given additional 0.4 mg of Narcan IV with some response. He was weaned to 6 L nasal cannula with oxygen saturation 95%. He was noted to be tachycardic with a heart rate of 123 but a stable blood pressure. After the additional Narcan he seemed to be a little more arousable for Dr. Zhang, emergency room attending who notes he was able to answer his name but then became somnolent again. Work-up in the emergency department clued routine labs including CBC that showed a white count of 13,000 but no anemia. Chemistry panel showed elevated creatinine 1.88 and elevated troponin of 0.08 and elevated AST of 62 and an ALT of 81. Electrolytes within normal limits. Anion gap was upper limits of normal at 11.2. ABG showed elevated blood lactate of 7.8 with a pH 7.37 and a PCO2 of 44 and a PO2 of 401 oxygen saturation 98%. He was weaned to a nasal cannula. EKG demonstrates sinus tachycardia [address] abnormalities across the anterior precordial leads. CT scan of the head demonstrated no acute intracranial process. Chest x-ray showed no acute pulmonary findings. Additional information obtained by the ER staff from the family including the patient's alleged that the patient has been buying methadone and gabapentin and Adderall off the streets and taking extra doses of his own Lyrica. Patient is now being admitted to the intensive care unit for close monitoring of his airway with additional doses of Narcan to be given as needed for respiratory depression. He will be given IV fluid hydration and his electrolytes and renal function and urine output will be monitored. Hemodynamics and oxygenation will be monitored. If need be he will be intubated to protect his airway if he is not able. Review of Systems Unobtainable due to mental condition [facility] Medical History (Updated 04/02/20 @ 16:36 by Louis Lee) Idiopathic thrombocytopenic purpura (ITP) Social History Smoking risk assessment performed?: No Meds Home Medications and Allergies Home Medications Medication Instructions Recorded Confirmed Type albuterol sulfate [Ventolin HFA] 2 inh INHALATION Q4H PRN PRN 04/02/20 04/02/20 History methadone 40 mg PO DAILY 04/02/20 04/02/20 History pregabalin 75 mg PO TID 04/02/20 04/02/20 History risperidone 4 mg PO BID 04/02/20 04/02/20 History trazodone 100 mg PO HS PRN PRN 04/02/20 04/02/20 History Allergies Allergy/AdvReac Type Severity Reaction Status Date / Time aspirin Allergy Unknown Unverified 04/02/20 13:39 Penicillins Allergy Unknown Unverified 04/02/20 13:39 shrimp Allergy Unknown Unverified 04/02/20 13:39 Exam Narrative Exam Narrative: Morbidly obese male who is somnolent but arousable. He is unable to sustain any attention. He does mumble a few words and open his eyes when I call his name. GCS 12 (E3, V4, M5) HEENT no visible trauma pupils pinpoint but reactive. Patient verbalizes but with incomprehensible speech. Gag reflex is poor. Neck supple with normal carotid pulses. Lungs with scattered expiratory wheezes bilaterally particularly at the bases Heart regular rate and rhythm no appreciable murmur rub Abdomen obese nondistended nontender no palpable masses or bruits Extremities without edema or cyanosis but with normal pulses and no evidence of track dobson and no evidence for splinter hemorrhages Neuro exam he is lethargic but arousable to calling his name but unable to sustain attention before drifting back to sleep he has no facial asymmetry speech is incoherent. He has normal motor tone and localizes to pain or tactile stimulation. He will make purposeful movements to push my hand away from him. Babinski reflex is absent. Genitalia and rectal exam not performed. Results Labs Result diagrams: 04/02/20 13:20 04/02/20 13:20 Labs: Laboratory Results - last 24 hr 04/02/20 04/02/20 04/02/20 13:20 13:20 13:20 WBC 13.84 H RBC 5.04 Hgb 14.2 Hct 44.9 MCV 89.1 MCH 28.2 MCHC 31.6 L RDW 13.8 Plt Count 326 MPV 9.0 Immature Gran % 0.5 Neutrophils % 86.9 Lymphocytes % 8.0 Monocytes % 4.4 Eosinophils % 0.1 Basophils % 0.1 Nucleated RBC % 0 Absolute Neutrophils 12.03 H Absolute Lymphocytes 1.11 L Absolute Monocytes 0.61 Absolute Eosinophils 0.01 Absolute Basophils 0.01 PT 14.0 H INR 1.4 H APTT 36.0 H ABG Sample Site ABG pH ABG pCO2 ABG pO2 ABG HCO3 ABG Total CO2 ABG O2 Saturation ABG Base Excess VBG Lactate FiO2 Sodium 138 Potassium 4.9 Chloride 99 Carbon Dioxide 27.8 Anion Gap 11.2 H BUN 14 Creatinine 1.88 H Estimated GFR/1.73 m2 40.15 Glucose 185 H Calcium 8.4 L Magnesium 2.3 Total Bilirubin 0.4 AST 62 H ALT 81 H Alkaline Phosphatase 68 Troponin I 0.08 H* Total Protein 7.3 Albumin 3.6 Urine Color Urine Clarity Urine pH Ur Specific [place] Urine Protein Urine Ketones Urine Blood Urine Nitrite Urine Bilirubin Urine Urobilinogen Ur Leukocyte Esterase Urine RBC Urine WBC Ur Epithelial Cells Urine Crystals Urine Bacteria Urine Casts Urine Mucus Urine Other Ur Culture Indicated? Urine Glucose Salicylates Urine Opiates Screen Urine Methadone Screen Acetaminophen Ur Barbiturates Screen Ur Tricyclics Screen Ur Amphetamines Screen U Benzodiazepines Scrn Urine Cocaine Screen Ur THC Screen Ethyl Alcohol < 3.0 04/02/20 04/02/20 04/02/20 13:20 13:20 13:23 WBC RBC Hgb Hct MCV MCH MCHC RDW Plt Count MPV Immature Gran % Neutrophils % Lymphocytes % Monocytes % Eosinophils % Basophils % Nucleated RBC % Absolute Neutrophils Absolute Lymphocytes Absolute Monocytes Absolute Eosinophils Absolute Basophils PT INR APTT ABG Sample Site Left radial ABG pH 7.37 ABG pCO2 44 ABG pO2 401 H ABG HCO3 25 ABG Total CO2 ABG O2 Saturation > 99 H ABG Base Excess 0 VBG Lactate 7.8 H* FiO2 100 Sodium Potassium Chloride Carbon Dioxide Anion Gap BUN Creatinine Estimated GFR/1.73 m2 Glucose Calcium Magnesium Total Bilirubin AST ALT Alkaline Phosphatase Troponin I Total Protein Albumin Urine Color Urine Clarity Urine pH Ur Specific [place] Urine Protein Urine Ketones Urine Blood Urine Nitrite Urine Bilirubin Urine Urobilinogen Ur Leukocyte Esterase Urine RBC Urine WBC Ur Epithelial Cells Urine Crystals Urine Bacteria Urine Casts Urine Mucus Urine Other Ur Culture Indicated? Urine Glucose Salicylates 9.0 Urine Opiates Screen Urine Methadone Screen Acetaminophen < 2 Ur Barbiturates Screen Ur Tricyclics Screen Ur Amphetamines Screen U Benzodiazepines Scrn Urine Cocaine Screen Ur THC Screen Ethyl Alcohol 04/02/20 04/02/20 15:10 15:10 WBC RBC Hgb Hct MCV MCH MCHC RDW Plt Count MPV Immature Gran % Neutrophils % Lymphocytes % Monocytes % Eosinophils % Basophils % Nucleated RBC % Absolute Neutrophils Absolute Lymphocytes Absolute Monocytes Absolute Eosinophils Absolute Basophils PT INR APTT ABG Sample Site ABG pH ABG pCO2 ABG pO2 ABG HCO3 ABG Total CO2 ABG O2 Saturation ABG Base Excess VBG Lactate FiO2 Sodium Potassium Chloride Carbon Dioxide Anion Gap BUN Creatinine Estimated GFR/1.73 m2 Glucose Calcium Magnesium Total Bilirubin AST ALT Alkaline Phosphatase Troponin I Total Protein Albumin Urine Color Yellow Urine Clarity Clear Urine pH 6.5 Ur Specific [place] 1.025 Urine Protein 30 H Urine Ketones Negative Urine Blood Trace-intact H Urine Nitrite Negative Urine Bilirubin Negative Urine Urobilinogen 1.0 H Ur Leukocyte Esterase Negative Urine RBC 5-10 H Urine WBC 5-10 Ur Epithelial Cells Few Urine Crystals Few amorphous Urine Bacteria Negative Urine Casts 3-5 hyaline Urine Mucus Trace Urine Other Few transitional Ur Culture Indicated? Yes Urine Glucose Negative Salicylates Urine Opiates Screen Negative Urine Methadone Screen Positive A Acetaminophen Ur Barbiturates Screen Negative Ur Tricyclics Screen Negative Ur Amphetamines Screen Negative U Benzodiazepines Scrn Negative Urine Cocaine Screen Negative Ur THC Screen Positive A Ethyl Alcohol Last Vital Signs Temp 36.8 C 04/02/20 15:39 Pulse 104 H 04/02/20 15:31 Resp 15 04/02/20 15:40 BP 130/103 H 04/02/20 15:31 Pulse Ox 100 04/02/20 15:40 COVID-19 Screening Have you, or household traveled for leisure in last 14 days?: No
[2020-04-02 16:22] LABS: COVID-19 PCR Negative (Negative); Influenza A PCR Negative (Negative); Influenza B PCR Negative (Negative); RSV PCR Negative (Negative)
[2020-04-02] MEDS: DEXTROSE 5%-LACTATED RINGERS 1,000 ML 150 ML IV (16:33)
[2020-04-02] MEDS: Heparin 5,000 UNITS/ML VIAL 5000 UNITS SC (16:41)
[2020-04-02 18:39] LABS: Creatine Kinase 528 U/L (39-308)
[2020-04-02] MEDS: DEXTROSE 5%-LACTATED RINGERS 1,000 ML 200 ML IV (21:12)
[2020-04-02 21:33] LABS: Troponin I 0.67 ng/mL (<0.06)
[2020-04-02] MEDS: Albuterol/Ipratropium 3 ML UPD VIAL UPD (23:50)
[2020-04-03] VITALS (61 sets, daily range): BP systolic 86–155; BP diastolic 56–97; PULSE 60–116; RESP 4–35; TEMP 35.9–37.9; O2SAT 86–96
[2020-04-03 02:12] LABS: Troponin I 0.73 ng/mL (<0.06)
[2020-04-03] MEDS: DEXTROSE 5%-LACTATED RINGERS 1,000 ML 125 ML IV ×3 (03:14→20:41)
[2020-04-03] MEDS: Albuterol/Ipratropium 3 ML UPD VIAL UPD ×2 (06:38→17:39)
[2020-04-03 07:28] LABS: Abs Immature Grans 0.11 10^3/uL (0.0-0.06); Absolute Basophil Count 0.02 10^3/uL (0.0-0.2); Basophils % 0.1; Eosinophils % 0.1; HCT 38.6 % (40.0-50.0); HGB 12.7 g/dL (13.5-17.5); Immature Grans % 0.6; Lymphocytes % 5.8; MCH 27.9 pg (27.0-33.0); MCHC 32.9 % (32.0-36.0); MCV 84.6 fL (80-95); MPV 9.3 fL (8.0-11.0); Monocytes % 6.8; Neutrophils % 86.6; Nucleated RBC 0 %; Platelet Count 255 10^3/uL (130-400); RBC 4.56 10^6/uL (4.36-5.78); RDW 13.8 % (11.8-14.1); RDW-SD 42.5 fL; WBC 17.12 10^3/uL (4.4-10.8)
[2020-04-03 07:30] LABS: Absolute Eosinophil Count 0.02 10^3/uL (0.0-0.7); Absolute Lymphocyte Count 0.99 10^3/uL (1.2-3.4); Absolute Monocyte Count 1.16 10^3/uL (0.1-0.8); Absolute Neutrophil Count 14.83 10^3/uL (1.2-6.7)
--- NOTE | 2020-04-03 07:45 | DI.RAD_ITS ---
EXAM: XR PORTABLE CHEST AP CLINICAL HISTORY: Fever, hypoxemia. TECHNIQUE: 2D digital imaging was performed. COMPARISON: CR,XR XR CHEST 1V IN DI DEPT from 04/02/2020 FINDINGS: Heart size is normal. The mediastinum is not widened. Lungs remain clear. No infiltrates nor obvious pleural effusions. IMPRESSION: No acute pulmonary findings on this single AP portable view of the chest.Recommend nonportable PA and lateral views when clinically possible. DATA REPOSITORY: RADIATION DOSE DELIVERED:
[2020-04-03 07:57] LABS: Troponin I 0.53 ng/mL (<0.06)
[2020-04-03] MEDS: CEFEPIME 2 GM in Normal Saline 100 ML IVPB ×2 (09:43→20:35)
[2020-04-03 10:13] LABS: ALT 137 U/L (16-63); AST 97 U/L (15-37); Alkaline Phosphatase 52 U/L (46-116); Anion Gap 4.6 mmol/L (3-11); BUN 13 mg/dL (7-18); Bilirubin, Total 0.7 mg/dL (0.2-1.0); CO2 30.4 mmol/L (21.0-32.0); CREATININE 0.99 mg/dL (0.70-1.30); Calcium 7.9 mg/dL (8.5-10.1); Chloride 100 mmol/L (98-107); Glucose 143 mg/dL (74-106); Potassium 3.3 mmol/L (3.5-5.1); Sodium 135 mmol/L (136-145); Total Protein 6.1 g/dL (6.4-8.2)
[2020-04-03 10:14] LABS: Creatine Kinase 1332 U/L (39-308)
[2020-04-03 10:51] LABS: Procalcitonin 0.3 ng/mL
--- NOTE | 2020-04-03 13:30 | RT.EKG_ITS ---
APPROVED REPORT Exam: Resting ECG Patient Location: I HR:106 bpm ECG Measurements Heart Rate 106 AXIS WI 131 P 64 QRSd 112 QRS 12 QT 347 T 28 QTc 460 Conclusion Sinus tachycardia...rate> 99 Nonspecific T abnormalities, anterior leads...T <-0.10mV, V2-V4
--- NOTE | 2020-04-03 14:23 | W.PM.PROGNOT ---
Date of Service Date of service: 04/03/20 Time of Service: 14:24 Assessment and Plan Assessment and plan (1) Drug overdose: Status: Acute Assessment and plan: Per reports his family gave to the emergency department patient has been taking extra methadone as well as obtaining illicit doses of gabapentin in addition to his own Lyrica and is on methadone. He also has been taking Adderall and he now admits to me that he was snorting Adderall with some friends. I told him that this is the probable cause for his NSTEMI. I think his obtunded state was secondary to the sedative effects from the Lyrica and the gabapentin and the methadone. At present time he is now alert and oriented and able to protect his airway. I restarted him on a diet today. He was just started on cefepime for what was probably an aspiration pneumonia even though the chest x-ray is not showing infiltrates. I will continue to treat him with antibiotics and aerosol treatments and pulmonary toiletry with Acapella. For his NSTEMI I will start him on a beta-erin but because of his ITP he is not a candidate for aspirin or Plavix nor heparin. At present time I will resume his usual dose of methadone 40 mg daily in order to prevent acute withdrawal. Qualifiers: Encounter type: initial encounter Injury intent: accidental or unintentional Qualified Code(s): T50.901A - Poisoning by unspecified drugs, medicaments and biological substances, accidental (unintentional), initial encounter (2) Polysubstance (excluding opioids) dependence: Status: Acute Assessment and plan: As above (3) Acute kidney injury (nontraumatic): Status: Resolved Assessment and plan: Acute kidney injury secondary to dehydration and rhabdomyolysis. CK this morning is up to 1332 however his creatinine is now down to 0.99 with a BUN of 13. Present time we will continue IV fluid hydration and recheck his CK levels. (4) NSTEMI (non-ST elevated myocardial infarction): Status: Acute Assessment and plan: Begin beta-blockers, check echocardiogram results. Repeat EKG was obtained and demonstrates sinus tachycardia with nonspecific ST depression in the anterior leads. I reviewed his raw echo images and did not see any signs of LV dysfunction. I suspect his NSTEMI and secondary to his illicit snorting of Adderall. Subjective Subjective Interval history since last seen: Patient admits that prior to coming into the hospital he had been snorting Adderall with some friends. This is probably the cause for his NSTEMI. He currently is free of any chest pain or dyspnea. He does have a moist cough and has been febrile this morning with temperature 37.9. Patient had a couple bouts of emesis while EMS was bringing him into the hospital yesterday. Chest x-ray this morning showed no acute pulmonary findings however he has diffuse rhonchi and wheezes as well as a moist cough. I ordered blood cultures and sputum culture and started empirically on cefepime to cover for anaerobes and gram negatives. He is requiring increased oxygen requirements he is now on 4 L nasal cannula. However he does not feel dyspneic. Exam Narrative Exam Narrative: Morbidly obese male who is awake alert and oriented and answering questions appropriately. He is very cooperative. Lungs with scattered rhonchi and wheezes. Heart is regular but tachycardic Abdomen is obese soft and nontender with normal bowel sounds no distention. Extremities without peripheral cyanosis or edema. Objective Last Vital Signs Temp 36.4 C L 04/03/20 12:52 Pulse 110 H 04/03/20 12:01 Resp 23 04/03/20 12:52 BP 124/83 04/03/20 12:01 Pulse Ox 94 04/03/20 12:52 Laboratory Results - last 24 hr 04/02/20 04/02/20 04/02/20 15:10 15:10 15:30 WBC RBC Hgb Hct MCV MCH MCHC RDW Plt Count MPV Immature Gran % Neutrophils % Lymphocytes % Monocytes % Eosinophils % Basophils % Nucleated RBC % Absolute Neutrophils Absolute Lymphocytes Absolute Monocytes Absolute Eosinophils Absolute Basophils Sodium Potassium Chloride Carbon Dioxide Anion Gap BUN Creatinine Estimated GFR/1.73 m2 Glucose Calcium Total Bilirubin AST ALT Alkaline Phosphatase Creatine Kinase Troponin I Total Protein Albumin Procalcitonin Urine Color Yellow Urine Clarity Clear Urine pH 6.5 Ur Specific [place] 1.025 Urine Protein 30 H Urine Ketones Negative Urine Blood Trace-intact H Urine Nitrite Negative Urine Bilirubin Negative Urine Urobilinogen 1.0 H Ur Leukocyte Esterase Negative Urine RBC 5-10 H Urine WBC 5-10 Ur Epithelial Cells Few Urine Crystals Few amorphous Urine Bacteria Negative Urine Casts 3-5 hyaline Urine Mucus Trace Urine Other Few transitional Ur Culture Indicated? Yes Urine Glucose Negative Urine Opiates Screen Negative Urine Methadone Screen Positive A Ur Barbiturates Screen Negative Ur Tricyclics Screen Negative Ur Amphetamines Screen Negative U Benzodiazepines Scrn Negative Urine Cocaine Screen Negative Ur THC Screen Positive A COVID-19 Source Nasopharynx SARS-CoV-2 (PCR) Negative Influenza Type A (PCR) Negative Influenza Type B (PCR) Negative RSV (PCR) Negative 04/02/20 04/02/20 04/02/20 17:15 17:15 20:18 WBC RBC Hgb Hct MCV MCH MCHC RDW Plt Count MPV Immature Gran % Neutrophils % Lymphocytes % Monocytes % Eosinophils % Basophils % Nucleated RBC % Absolute Neutrophils Absolute Lymphocytes Absolute Monocytes Absolute Eosinophils Absolute Basophils Sodium Potassium Chloride Carbon Dioxide Anion Gap BUN Creatinine Estimated GFR/1.73 m2 Glucose Calcium Total Bilirubin AST ALT Alkaline Phosphatase Creatine Kinase 528 H Troponin I 0.40 H* 0.67 H* Total Protein Albumin Procalcitonin Urine Color Urine Clarity Urine pH Ur Specific [place] Urine Protein Urine Ketones Urine Blood Urine Nitrite Urine Bilirubin Urine Urobilinogen Ur Leukocyte Esterase Urine RBC Urine WBC Ur Epithelial Cells Urine Crystals Urine Bacteria Urine Casts Urine Mucus Urine Other Ur Culture Indicated? Urine Glucose Urine Opiates Screen Urine Methadone Screen Ur Barbiturates Screen Ur Tricyclics Screen Ur Amphetamines Screen U Benzodiazepines Scrn Urine Cocaine Screen Ur THC Screen COVID-19 Source SARS-CoV-2 (PCR) Influenza Type A (PCR) Influenza Type B (PCR) RSV (PCR) 04/03/20 04/03/20 04/03/20 01:25 07:20 07:20 WBC 17.12 H RBC 4.56 Hgb 12.7 L Hct 38.6 L MCV 84.6 D MCH 27.9 MCHC 32.9 RDW 13.8 Plt Count 255 MPV 9.3 Immature Gran % 0.6 Neutrophils % 86.6 Lymphocytes % 5.8 Monocytes % 6.8 Eosinophils % 0.1 Basophils % 0.1 Nucleated RBC % 0 Absolute Neutrophils 14.83 H Absolute Lymphocytes 0.99 L Absolute Monocytes 1.16 H Absolute Eosinophils 0.02 Absolute Basophils 0.02 Sodium Cancelled Potassium Cancelled Chloride Cancelled Carbon Dioxide Cancelled Anion Gap Cancelled BUN Cancelled Creatinine Cancelled Estimated GFR/1.73 m2 Cancelled Glucose Cancelled Calcium Cancelled Total Bilirubin Cancelled AST Cancelled ALT Cancelled Alkaline Phosphatase Cancelled Creatine Kinase Cancelled Troponin I 0.73 H* 0.53 H* Total Protein Cancelled Albumin Cancelled Procalcitonin Urine Color Urine Clarity Urine pH Ur Specific [place] Urine Protein Urine Ketones Urine Blood Urine Nitrite Urine Bilirubin Urine Urobilinogen Ur Leukocyte Esterase Urine RBC Urine WBC Ur Epithelial Cells Urine Crystals Urine Bacteria Urine Casts Urine Mucus Urine Other Ur Culture Indicated? Urine Glucose Urine Opiates Screen Urine Methadone Screen Ur Barbiturates Screen Ur Tricyclics Screen Ur Amphetamines Screen U Benzodiazepines Scrn Urine Cocaine Screen Ur THC Screen COVID-19 Source SARS-CoV-2 (PCR) Influenza Type A (PCR) Influenza Type B (PCR) RSV (PCR) 04/03/20 04/03/20 09:30 09:30 WBC RBC Hgb Hct MCV MCH MCHC RDW Plt Count MPV Immature Gran % Neutrophils % Lymphocytes % Monocytes % Eosinophils % Basophils % Nucleated RBC % Absolute Neutrophils Absolute Lymphocytes Absolute Monocytes Absolute Eosinophils Absolute Basophils Sodium 135 L Potassium 3.3 L D Chloride 100 Carbon Dioxide 30.4 Anion Gap 4.6 BUN 13 Creatinine 0.99 D Estimated GFR/1.73 m2 >= 60.00 Glucose 143 H Calcium 7.9 L Total Bilirubin 0.7 AST 97 H ALT 137 H Alkaline Phosphatase 52 Creatine Kinase 1332 H Troponin I Total Protein 6.1 L Albumin 3.0 L Procalcitonin 0.3 Urine Color Urine Clarity Urine pH Ur Specific [place] Urine Protein Urine Ketones Urine Blood Urine Nitrite Urine Bilirubin Urine Urobilinogen Ur Leukocyte Esterase Urine RBC Urine WBC Ur Epithelial Cells Urine Crystals Urine Bacteria Urine Casts Urine Mucus Urine Other Ur Culture Indicated? Urine Glucose Urine Opiates Screen Urine Methadone Screen Ur Barbiturates Screen Ur Tricyclics Screen Ur Amphetamines Screen U Benzodiazepines Scrn Urine Cocaine Screen Ur THC Screen COVID-19 Source SARS-CoV-2 (PCR) Influenza Type A (PCR) Influenza Type B (PCR) RSV (PCR)
[2020-04-03] MEDS: Nicotine 21 MG/24 HR PATCH TD ×2 (14:38)
[2020-04-03] MEDS: Metoprolol 25 MG TAB PO ×2 (14:51→20:41)
--- NOTE | 2020-04-03 15:12 | PHA.REVIEW ---
Pharmacy Admission Review - Admission Clinical Review (Last Updated 04/02/20 @ 13:41 by Nelida Lombardi) NSTEMI (non-ST elevated myocardial infarction) (Acute) Polysubstance overdose (Acute) Unresponsive episode (Acute) Elevated troponin (Acute) Drug overdose (Acute) Polysubstance (excluding opioids) dependence (Acute) aspirin Allergy (Unknown, Unverified 04/02/20 13:39) Penicillins Allergy (Unknown, Unverified 04/02/20 13:39) shrimp Allergy (Unknown, Unverified 04/02/20 13:39) Height 6 ft 1 in Weight 116.3 kg - Renal Dosing Renal Dosing: BUN 13 mg/dL (7-18) 04/03/20 09:30 Creatinine 0.99 mg/dL (0.70-1.30) D 04/03/20 09:30 Medications needing adjustments: Reviewed (Crcl ~113 mL/min current meds okay) - Anticoagulation Anticoagulation: Hgb 12.7 g/dL (13.5-17.5) L 04/03/20 07:20 Hct 38.6 % (40.0-50.0) L 04/03/20 07:20 Plt Count 255 10^3/uL (130-400) 04/03/20 07:20 INR 1.4 (0.9-1.1) H 04/02/20 13:20 Creatinine 0.99 mg/dL (0.70-1.30) D 04/03/20 09:30 DVT Prohphylaxis: Reviewed (pt has ITP so not a candidate per progress note, has TEDS and SCDs ordered) - Opiate Usage Evaluate Pain Scale/Pains Meds: Intervened Scheduled Bowel Reg ordered if on Opiates?: No (will mention to provider ) - Relevant Labs Sodium 135 mmol/L (136-145) L 04/03/20 09:30 Potassium 3.3 mmol/L (3.5-5.1) L D 04/03/20 09:30 Chloride 100 mmol/L (98-107) 04/03/20 09:30 Magnesium 2.3 mg/dL (1.8-2.4) 04/02/20 13:20 Electrolytes, C-Reactive P, ESR: Reviewed (potassium replacement ordered) - DM Control DM Control: Glucose 143 mg/dL (74-106) H 04/03/20 09:30 Insulin Dosing: N/A (BG has been elevated so far this admission, no previous labs/A1c on file. No DM noted in pt's med history.) - Heart Failure/KS Heart Failure/KS: Troponin I 0.53 ng/mL (<0.06) H* 04/03/20 07:20 EF%, VALENTÍN's, B-Blockers, Diuretics: Reviewed - BP Control BP Control: Blood Pressure 124/83 Blood Pressure 121/71 Blood Pressure 105/68 Blood Pressure 131/90 Blood Pressure 119/97 Blood Pressure 140/91 Blood Pressure 155/90 Blood Pressure 141/85 Blood Pressure 137/82 If elevated: Reviewed (BP was elevated some this morning, metoprolol added due to NSTEMI) - Qtc Review If Elevated: N/A (QTc 468 on admission) - IV to PO Switch IV Medications: Reviewed - Home Meds Home Med List reviewed: Reviewed (Multiple [employer] depressants and QT prolonging meds.) Relevent Home Meds Not ordered & why?: pregabalin, risperidone, trazodone - Current meds Current Medication Order Review: Reviewed - Comments Comments/Follow Ups: Watch BP, K+, BG, and for med changes (need of BM meds, avoid QT prolonging meds). Antibiotic Activity - Pharmacy Antibiotic Review Pharmacy Antibiotic Activity: Reviewed, no change (Cefepime started to cover for possible aspiration pneumonia.)
--- NOTE | 2020-04-03 15:17 | INITIAL_ITS ---
- If Service Date Differs Date of service: 04/03/20 Time of Service: 13:27 Care Management Initial Assess REASON FOR HOSPITALIZATION:: Polysubstance Overdose PAST MEDICAL HISTORY/PAST SURGICAL HISTORY:: NSTEMI, unresponsive episode, elevated troponin, CAROL-non traumatic, ITP PREVIOUS FUNCTIONAL STATUS/SOCIAL/FAMILY SUPPORTS:: Anmol resides in [place], [place] with his , Renetta. He attends [facility] program for MAT of opiate use disorder. He is independent at baseline in the community. CURRENT FUNCTIONAL STATUS:: Anmol was drowsy throughout the day, but arousable with effort per documentation. He was able to eat some lunch today and sit up to his chair this morning. He is currently on room air only, with sats in the 88-90 range. Barrera catheter remains in place. ADVANCE DIRECTIVES:: None on file. Has patient been provided with info about the portal/API?: No Did the patient sign up for the portal?: No CODE STATUS:: Full Code INSURANCE COVERAGE / FINANCIAL ISSUES:: [facility]. [facility] CURRENT HOME/COMMUNITY SERVICES/EQUIPMENT:: [facility] POTENTIAL DISCHARGE NEEDS:: Discuss MH/[facility] resources for follow up support. PCP attachment, follow up appointments. PATIENT/FAMILY EDUCATION NEEDS:: Review discharge instructions, community based support; MH/[facility]. Discuss self care needs upon discharge. ANTICIPATED BARRIERS TO DISCHARGE:: None identified. TRANSPORTATION:: Via private vehicle with family. PLAN:: If needed, Anmol will be attached to PCP for follow up. CM will coordinated need info and last dose letter to [facility] for continued treatment follow up. He will transport via private vehicle with his . CM continues to follow.
[2020-04-03] MEDS: Methadone Liquid 10 MG/ML 40 MG PO (15:44)
[2020-04-03] MEDS: Potassium Chloride Liquid 20 MEQ PKT 40 MEQ PO (15:46)
[2020-04-03 17:57] LABS: Creatine Kinase 1154 U/L (39-308)
[2020-04-03] MEDS: Normal Saline Flush 10 ML SYR 20 ML IVP (20:37)
[2020-04-04] VITALS (37 sets, daily range): BP systolic 102–120; BP diastolic 66–82; PULSE 60–90; RESP 2–21; TEMP 35.1–36.9; O2SAT 88–98
[2020-04-04] MEDS: Metoprolol 25 MG TAB PO (05:28)
[2020-04-04] MEDS: Albuterol/Ipratropium 3 ML UPD VIAL UPD ×4 (05:28→23:48)
[2020-04-04] MEDS: POTASSIUM CHLORIDE/0.9% NACL 1,000 ML 125 MEQ IV (05:38)
[2020-04-04 06:59] LABS: Abs Immature Grans 0.06 10^3/uL (0.0-0.06); Absolute Basophil Count 0.05 10^3/uL (0.0-0.2); Absolute Eosinophil Count 0.09 10^3/uL (0.0-0.7); Absolute Monocyte Count 1.23 10^3/uL (0.1-0.8); Basophils % 0.3; Eosinophils % 0.6; HCT 36.3 % (40.0-50.0); HGB 11.4 g/dL (13.5-17.5); Immature Grans % 0.4; Lymphocytes % 10.9; MCH 27.5 pg (27.0-33.0); MCHC 31.4 % (32.0-36.0); MCV 87.5 fL (80-95); MPV 9.5 fL (8.0-11.0); Monocytes % 8.1; Neutrophils % 79.7; Nucleated RBC 0 %; Platelet Count 244 10^3/uL (130-400); RBC 4.15 10^6/uL (4.36-5.78); RDW-SD 45.1 fL; WBC 15.16 10^3/uL (4.4-10.8)
[2020-04-04 07:02] LABS: Absolute Lymphocyte Count 1.65 10^3/uL (1.2-3.4); Absolute Neutrophil Count 12.08 10^3/uL (1.2-6.7); Anion Gap 1.6 mmol/L (3-11); BUN 10 mg/dL (7-18); C-Reactive Protein 16.93 mg/dL (0.0-0.3); CO2 31.4 mmol/L (21.0-32.0); CREATININE 0.83 mg/dL (0.70-1.30); Calcium 7.6 mg/dL (8.5-10.1); Chloride 102 mmol/L (98-107); Creatine Kinase 549 U/L (39-308); Glucose 114 mg/dL (74-106); Potassium 4.1 mmol/L (3.5-5.1); Sodium 135 mmol/L (136-145)
[2020-04-04] MEDS: CEFEPIME 2 GM in Normal Saline 100 ML IVPB ×2 (08:17→16:40)
[2020-04-04] MEDS: Methadone Liquid 10 MG/ML 40 MG PO (09:09)
--- NOTE | 2020-04-04 10:45 | PGE_ITS ---
Date of Service Date of service: 04/04/20 Time of Service: 10:45 Assessment and Plan Assessment and plan (1) NSTEMI (non-ST elevated myocardial infarction): Status: Acute Assessment and plan: Demand ischemic event secondary to illicit use of amphetamines. According to his echocardiogram LV function has been well preserved with no wall motion abnormalities. He is not a candidate for antiplatelet therapy due to his history of ITP. I will keep him on a beta- erin and switch him from short acting Lopressor to Toprol-XL. Rhythm is remained sinus rhythm. (2) Acute kidney injury (nontraumatic): Status: Resolved Assessment and plan: Acute kidney injury secondary to rhabdomyolysis. Renal function has recovered and CK is now declining under thousand and patient is drinking adequate oral intake. I will discontinue his IV fluids. (3) Rhabdomyolysis: Status: Acute Assessment and plan: Resolving. At this point he is out of the danger point for worsening kidney dysfunction. BUN and creatinine have normalized. I will stop his IV fluids at this point. Qualifiers: Rhabdomyolysis type: non-traumatic Qualified Code(s): M62.82 - Rhabdomyolysis (4) Drug overdose: Status: Acute Assessment and plan: I did talk with Anmol about his opioid dependence and his methadone dosing as well as his other illicit drug use including snorting of Ritalin. He understands that probably the overdose of amphetamines precipitated his NSTEMI. I have also learned from [facility] that he has missed his last 3 appointments. I emphasized with him that he needs more accountability and brought up the idea of possible entering into a drug rehab program. Case management is going to discuss this further with him. At this time he seems to be disinclined to go to an inpatient rehab program. I have resumed his scheduled doses of methadone 40 mg daily. I am not going to resume his Lyrica. Qualifiers: Encounter type: initial encounter Injury intent: accidental or unintentional Qualified Code(s): T50.901A - Poisoning by unspecified drugs, medicaments and biological substances, accidental (unintentional), initial encounter (5) Polysubstance (excluding opioids) dependence: Status: Acute Assessment and plan: As above (6) Discharge planning issues: Status: Acute Assessment and plan: Patient will either return home tomorrow with assistance from a drug rehab head men's golf coach and follow-up with [facility] or if he is willing to go for inpatient drug rehab and case management will reach out to area facilities for referral. Subjective Subjective Interval history since last seen: Patient continues to do well. He has no chest pain and no dyspnea. Nursing staff is wean his oxygen down to room air and is maintaining his oxygen saturation at 92% or better. He has minimal cough with minimal production. He has had no chest pain. Echocardiogram demonstrated preserved left ventricular function with no wall motion abnormalities. His troponin peaked at 0.73 as last level yesterday was down to 0.53. Creatinine kinase had peaked at 1332 and is now down to 549. BUN and creatinine are now normal with a BUN of 10 and creatinine of 0.83. He remains afebrile and his white count is down to 15,000. He remains on cefepime 2 g IV every 12 hours. As his renal function has improved, and increase the dosage to 2 g every 8 hours. He is hemodynamically and from a respiratory standpoint stable and can be transferred out of the ICU to the medical/surgical floor. Exam Narrative Exam Narrative: Obese male who is pleasant very cooperative he is alert and oriented person place time circumstance. Lungs with diffuse scattered bilateral expiratory wheezing Heart regular rate and rhythm without appreciable murmur rub or gallop. Abdomen is obese soft and nontender. Objective Last Vital Signs Temp 35.1 C L 04/04/20 08:00 Pulse 61 04/04/20 08:01 Resp 14 04/04/20 08:01 BP 112/72 04/04/20 08:01 Pulse Ox 92 04/04/20 10:29 Laboratory Results - last 24 hr 04/03/20 04/03/20 04/04/20 09:30 17:15 06:10 WBC RBC Hgb Hct MCV MCH MCHC RDW Plt Count MPV Immature Gran % Neutrophils % Lymphocytes % Monocytes % Eosinophils % Basophils % Nucleated RBC % Absolute Neutrophils Absolute Lymphocytes Absolute Monocytes Absolute Eosinophils Absolute Basophils Sodium 135 L Potassium 4.1 D Chloride 102 Carbon Dioxide 31.4 Anion Gap 1.6 L BUN 10 Creatinine 0.83 Estimated GFR/1.73 m2 >= 60.00 Glucose 114 H Calcium 7.6 L Creatine Kinase 1154 H 549 H C-Reactive Protein 16.93 H Procalcitonin 0.3 04/04/20 06:10 WBC 15.16 H RBC 4.15 L Hgb 11.4 L Hct 36.3 L MCV 87.5 MCH 27.5 MCHC 31.4 L RDW 14.0 Plt Count 244 MPV 9.5 Immature Gran % 0.4 Neutrophils % 79.7 Lymphocytes % 10.9 Monocytes % 8.1 Eosinophils % 0.6 Basophils % 0.3 Nucleated RBC % 0 Absolute Neutrophils 12.08 H Absolute Lymphocytes 1.65 Absolute Monocytes 1.23 H Absolute Eosinophils 0.09 Absolute Basophils 0.05 Sodium Potassium Chloride Carbon Dioxide Anion Gap BUN Creatinine Estimated GFR/1.73 m2 Glucose Calcium Creatine Kinase C-Reactive Protein Procalcitonin
[2020-04-04] MEDS: Metoprolol CR 50 MG TABCR PO (11:53)
[2020-04-04] MEDS: predniSONE 20 MG TAB 40 MG PO (11:54)
--- NOTE | 2020-04-04 13:20 | W.NUTRFU ---
Date of service: 04/04/20 Time of Service: 13:21 Nutritional Follow up NOTE: 39 year old male admitted to ICU with polysubstance abuse, with NSTEMI. BMI indicates obesity. Diet advanced to regular and tolerating well. Not at nutritional risk at this time. will continue to follow Time Spent in Nutritional Counseling and Treatment: 0
--- NOTE | 2020-04-04 13:47 | CMPROGNOTE_ITS ---
Care Management Progress Note S/O: Anmol was pleasant in interaction and agreeable to engaging with this functional tester typewriters. He reports being scared about having a heart attack and expresses I want to get my life back on track, he reports previous periods of stability and sobriety. He reported feeling anxious and taking a friend's xanax, which resulted in his urine drug screen at [facility], and his methadone dose was then reduced. Anmol reported he has been struggling to get to [facility] daily, so has been staying with his (who he is from) and his kids. Anmol resides in [facility] with his brother, he reports that after discharge his mom has agreed to transport him to [facility] daily. He reports they are applying for funding through [facility], CM advised Anmol to notify his [facility] CM of his struggles as well. Anmol reports he is not eligible for RCT transport as there are working vehicles at his mother and brother's homes. CM reviewed benefits of inpatient rehab; observation with recommendations for treatment/medications. CM also reviewed rn recovery program offerings. Anmol was open to discussion but requested time to think over his options. CM will follow up to determine Anmol's thoughts and preferences for discharge service connection. CM reviewed [facility] coordination and last dose letter process. CM updated MONTRELL Lopez at [facility] as well. A: 39 year old male admitted to [facility] 04/03/19 for polysubstance overdose. P: Anmol will return home when ready per MD. He will transport via private vehicle with family, and return to his brother's home in [facility]. His mother has agreed to transport him to [facility] daily. CM will complete last dose letter and provide to [facility] for service resumption. CM will also support service connection for [facility], if Anmol is agreeable. CM continues to follow.
--- NOTE | 2020-04-04 13:47 | PDOC.CMPRO ---
Care Management Progress Note S/O: Anmol was pleasant in interaction and agreeable to engaging with this keno writer/runner. He reports being scared about having a heart attack and expresses I want to get my life back on track, he reports previous periods of stability and sobriety. He reported feeling anxious and taking a friend's xanax, which resulted in his urine drug screen at [facility], and his methadone dose was then reduced. Anmol reported he has been struggling to get to [facility] daily, so has been staying with his (who he is from) and his kids. Anmol resides in [facility] with his brother, he reports that after discharge his mom has agreed to transport him to [facility] daily. He reports they are applying for funding through [facility], CM advised Anmol to notify his [facility] CM of his struggles as well. Anmol reports he is not eligible for RCT transport as there are working vehicles at his mother and brother's homes. CM reviewed benefits of inpatient rehab; observation with recommendations for treatment/medications. CM also reviewed coach mechanic program offerings. Anmol was open to discussion but requested time to think over his options. CM will follow up to determine Anmol's thoughts and preferences for discharge service connection. CM reviewed [facility] coordination and last dose letter process. CM updated MONTRELL Lopez at [facility] as well. A: 39 year old male admitted to [facility] 04/03/19 for polysubstance overdose. P: Anmol will return home when ready per MD. He will transport via private vehicle with family, and return to his brother's home in [facility]. His mother has agreed to transport him to [facility] daily. CM will complete last dose letter and provide to [facility] for service resumption. CM will also support service connection for [facility], if Anmol is agreeable. CM continues to follow.
[2020-04-04] MEDS: Nicotine 21 MG/24 HR PATCH TD (14:01)
[2020-04-04] MEDS: Normal Saline Flush 10 ML SYR IVP (16:40)
--- NOTE | 2020-04-04 19:04 | NUR.NOTE ---
Nursing Note: 04/04/20 1409- [facility] with nurse. pt VSS.
[2020-04-04] MEDS: Normal Saline Flush 10 ML SYR 20 ML IVP (19:48)
[2020-04-04] MEDS: risperiDONE 1 MG TAB 4 MG PO (19:49)
[2020-04-04] MEDS: Calcium Carbonate *TUMS* 500 MG CHEW PO (22:16)
[2020-04-05] MEDS: Normal Saline Flush 10 ML SYR IVP (00:01)
[2020-04-05] MEDS: CEFEPIME 2 GM in Normal Saline 100 ML IVPB ×2 (00:03→07:41)
[2020-04-05 05:46] VITALS: RESP 4; RESP 5
[2020-04-05] MEDS: Albuterol/Ipratropium 3 ML UPD VIAL UPD ×2 (05:46→11:30)
[2020-04-05 07:17] VITALS: PULSE 73
[2020-04-05 07:22] LABS: Anion Gap 8.5 mmol/L (3-11); BUN 13 mg/dL (7-18); CO2 26.5 mmol/L (21.0-32.0); Calcium 8.3 mg/dL (8.5-10.1); Chloride 104 mmol/L (98-107); Creatine Kinase 214 U/L (39-308); Glucose 93 mg/dL (74-106); Magnesium 2.2 mg/dL (1.8-2.4); Potassium 3.9 mmol/L (3.5-5.1); Sodium 139 mmol/L (136-145)
[2020-04-05 07:31] VITALS: BP 132/84; PULSE 77; RESP 18; TEMP 36.7; O2SAT 95
[2020-04-05] MEDS: Normal Saline Flush 10 ML SYR 20 ML IVP (07:41)
[2020-04-05] MEDS: Metoprolol CR 50 MG TABCR PO (08:54)
[2020-04-05] MEDS: Methadone Liquid 10 MG/ML 40 MG PO (08:54)
[2020-04-05] MEDS: risperiDONE 1 MG TAB 4 MG PO (08:55)
[2020-04-05] MEDS: predniSONE 20 MG TAB 40 MG PO (08:55)
[2020-04-05 11:30] VITALS: PULSE 92; RESP 16; RESP 4; RESP 5; O2SAT 96
[2020-04-05 11:32] VITALS: PULSE 92; PULSE 98; RESP 16; O2SAT 93; O2SAT 96
--- NOTE | 2020-04-05 11:54 | CHAPLAIN ---
Richardson was sitting up in bed when I visited. I woke him up from a nap. He was pleasant and thanked me for visiting him, but not interested in further conversation.
--- NOTE | 2020-04-05 12:05 | PGE_ITS ---
Date of Service Date of service: 04/05/20 Time of Service: 12:06 Assessment and Plan Assessment and plan (1) NSTEMI (non-ST elevated myocardial infarction): Status: Acute Assessment and plan: ACS secondary to demand ischemia. Not eligible for antiplatelet therapy due to his history of ITP. Continue Toprol-XL 50 mg daily. No arrhythmias overnight. Remains in normal sinus rhythm. Patient is medically stable and ready for discharge. (2) Acute kidney injury (nontraumatic): Status: Resolved Assessment and plan: CAROL has resolved. (3) Rhabdomyolysis: Status: Acute Assessment and plan: Resolving. At this point he is out of the danger point for worsening kidney dysfunction. BUN and creatinine have normalized. I will stop his IV fluids at this point. Qualifiers: Rhabdomyolysis type: non-traumatic Qualified Code(s): M62.82 - Rhabdomyolysis (4) Drug overdose: Status: Acute Assessment and plan: I did talk with Anmol about his opioid dependence and his methadone dosing as well as his other illicit drug use including snorting of Ritalin. He understands that probably the overdose of amphetamines precipitated his NSTEMI. I have also learned from [facility] that he has missed his last 3 appointments. I emphasized with him that he needs more accountability and brought up the idea of possible entering into a drug rehab program. Case management is going to discuss this further with him. At this time he seems to be disinclined to go to an inpatient rehab program. I have resumed his scheduled doses of methadone 40 mg daily. I am not going to resume his Lyrica. Qualifiers: Encounter type: initial encounter Injury intent: accidental or unintentional Qualified Code(s): T50.901A - Poisoning by unspecified drugs, medicaments and biological substances, accidental (unintentional), initial encounter (5) Polysubstance (excluding opioids) dependence: Status: Acute Assessment and plan: As above (6) Discharge planning issues: Status: Acute Assessment and plan: Patient will either return home tomorrow with assistance from a drug rehab transit coach operator and follow-up with [facility] or if he is willing to go for inpatient drug rehab and case management will reach out to area facilities for referral. Subjective Subjective Interval history since last seen: Patient feels good this morning. He denies any shortness of breath or chest pain. He is on room air with good oxygenation. Does have a moist cough minimally productive of mucus. He has no fever. His renal function has returned to normal. He is eating and drinking fine. He is asking about going home. I told him that he needs to avoid abuse of amphetamines and any other drugs or not prescribed for him and he should not take even his own medications other than the way they are prescribed. He understands that he had a heart attack probably caused by demand ischemia from snorting the Ritalin. I explained to him that he needs to finish out the antibiotics to give him 5 more days of oral antibiotics. I prescribed Cefpodoxime 200 mg twice a day for 5 more days along with prednisone 40 mg daily for 5 more days. He has his own albuterol inhaler he can use. I will keep him on Toprol-XL 50 mg daily because of the ACS event. He should get a follow-up stress MPI study in 4 to 6 weeks. I will leave this up to his PCP. He sees Ivone Ruano at [facility] in [facility]. Exam Narrative Exam Narrative: Obese male who is alert and oriented person place time circumstance. Lungs with scattered expiratory wheezes. Heart is regular rate and rhythm Objective Last Vital Signs Temp 36.7 C 04/05/20 07:31 Pulse 92 H 04/05/20 11:30 Resp 16 04/05/20 11:30 BP 132/84 04/05/20 07:31 Pulse Ox 96 04/05/20 11:30 Laboratory Results - last 24 hr 04/05/20 06:40 Sodium 139 Potassium 3.9 Chloride 104 Carbon Dioxide 26.5 Anion Gap 8.5 BUN 13 Creatinine 0.80 Estimated GFR/1.73 m2 >= 60.00 Glucose 93 Calcium 8.3 L Magnesium 2.2 Creatine Kinase 214
[2020-04-05 12:09] VITALS: PULSE 97
[2020-04-05] MEDS: Bacitracin 1 PACKET TP (14:19)
--- NOTE | 2020-04-05 14:38 | DSE_ITS ---
Date of service: 04/05/20 Time of Service: 14:38 DS: Diagnosis Discharge Diagnosis (1) NSTEMI (non-ST elevated myocardial infarction): Status: Acute (2) Acute kidney injury (nontraumatic): Status: Resolved (3) Rhabdomyolysis: Status: Acute (4) Drug overdose: Status: Acute (5) Polysubstance (excluding opioids) dependence: Status: Acute (6) Discharge planning issues: Status: Acute Discharge Plan Disposition Patient Disposition: HOME Condition: Improving Discharge Details Reason For Visit: DRUG OVERDOSE Admit Date/Time: 04/02/20 14:55 Admit Provider: Louis Lee Attending Provider: Louis Lee Primary Care Provider: Unknown,Unknown Hospital Course Hospital Course: 39 yr old male w/ hx opioid dependence, on methadone maintenance program, also takes Lyrica, Risperdone, and Desyrel. He was brought in via EMS after family found him to be unresponsive and required multiple doses of intranasal narcan. He had repeated emesis enroute to the hospital. He remained obtunded after arrival to the ER, but the ER personnel felt that he was able to protect his airway and therefore he was not intubated. He was given additional Narcan in the ER and became more arouseable and was able to answer to his name but would remain somnolent w/ sonorous respirations w/ hypoxemia that corrected w/ nasal cannula oxygen. Labs demonstrated acute kidney injury w/ creatinine of 1.88 and elevated lactated of 7.8 w/ A.G. of 11.2, leukocytosis of 13,000 and troponin of 0.08. EKG demonstrated tachycardia of 111 bpm and non-specific ST changes in anterior precordial leads. he was resuscitated w/ narcan, oxygen and iv fluids and admitted to the ICU. Images included CT of head that did not show any acute abnormalities and CXR that showed no acute cardiopulmonary abnormalities. Patient was kept NPO, supported w/ iv fluids, serial troponin levels, serial CMP, CBC were monitored as was his urine output via a young. By the next morning he was awake and oriented and able to answer questions. He admitted to snorting Rital the night before he had passed out. He also admits to using other people's meds. His family had volunteered to the ER that he had been obtaining methadone, Adderall and gabapentin from friends. His troponin I levels peaked at 0.73 before declining to 0.53. His CK was elevated at 528 on admission and peaked at 1332 before returning to normal at 214 on the day of discharge. Because of the NSTEMI and echo was ordered and demonstrated normal LV size, function and wall thickness. LVEF 55%. RV size and function were normal. On the morning following his admission he had low grade temp of 37.9 and his WBC peaked at 17,00 on 04/03/2020. Repeat CXR on 04/03/2020 was done d/t his cough/wheezing and fever. Again this showed no acute pulmonary findings. Nevertheless, he was started on Cefepime 2 gm IV Q12h which was increased to 2 gm IV Q8h when his creatinine returned to normal. On 04/04/2020, he was no longer requiring supplemental oxygen, his room air saturation was 95 to 96% and he had no dyspnea w/ activity. He remained afebrile. When his troponin levels reached threshold for NSTEMI he as put on lopressor 25 mg Q8h however this was changed to Toprol XL 50 mg at discharge. He is advised that he ought to have a GXT stress MPI low level in 4 to 6 weeks to rule out any residual ischemia. Because of his ITP he was never put on any antiplatelet drugs. He has been advised that he needs to avoid all stimulants in the future and to only take medications prescribed for him. He was discharged on 5 more days of oral antibiotics (Cefpodoxime) and prednisone. Home Meds and New Rx's Prescriptions: New cefpodoxime 200 mg tablet 200 mg PO BID Qty: 10 RF: 0 prednisone 20 mg tablet 40 mg PO DAILY Qty: 10 RF: 0 metoprolol succinate [Toprol XL] 50 mg tablet extended release 24 hr 50 mg PO DAILY Qty: 30 RF: 0 Continued risperidone 4 mg tablet 4 mg PO BID RF: 0 trazodone 100 mg tablet 100 mg PO HS PRN PRNRF: 0 methadone 10 mg/mL Concentrate 40 mg PO DAILY RF: 0 albuterol sulfate [Ventolin HFA] 90 mcg/actuation HFA aerosol inhaler 2 inh INHALATION Q4H PRN PRNRF: 0 pregabalin 75 mg capsule 75 mg PO TID RF: 0 Discharge Instructions Instructions: Rhabdomyolysis (DC), Acute Coronary Syndrome (DC), Narcotic Safety (DC), Aspiration Pneumonia (DC), Methamphetamine Abuse (DC), Adult Overdose (ED) Additional Instructions: Talk w/ your provider about obtaining a cardiac stress test w/ myocardial perfusion imaging. This should be done in 6 weeks. You had what is called a type 2 myocardial infarction, caused by the increased demand caused by your snorting of amphetemines (Ritalin). You should avoid stimulant medications and you should not be abusing narcotics or any medication not prescribed for you. Use only the medications your provider has prescribed. Stand Alone Forms: Nursing Discharge Form Referrals: Ivone Ruano [NURSE PRACTITIONER] - 04/13/20 9:00 am Lauro Alcazar MD [ [facility] STAFF PHYSICIAN] - 04/11/20 10:25 am Activity:: Activity as Tolerated Equipment/Supplies:: No Equipment Needed Diet:: Normal Diet Discharge Orders Discharge Orders: Discharge Order (Routine); Ordered 04/05/20 Ordered By: Louis Lee Discharge Data Discharge Date/Time-TO BE ENTERED AT DEPARTURE: 04/05/20 14:55 DS: Summary Status at Discharge Functional status at discharge: independent ambulation Overall status at discharge: patient is progressing back to baseline Mental Status: mental status grossly normal Speech and Movement: speech and movement normal Mood: congruent mood Affect: normal affect Time Spent with Patient providing and/or coordinating discharge services: Greater than 30 minutes Exam Narrative Exam Narrative: Obese male who is alert and oriented person place time circumstance. Lungs with scattered expiratory wheezes. Heart is regular rate and rhythm Psych Mental Status: mental status grossly normal Speech and Movement: speech and movement normal Mood: congruent mood Affect: normal affect DS: Data Vitals/I&O Vitals and I&O: Vital Signs Temperature 36.7 C 04/05/20 07:31 Temperature Source Tympanic 04/05/20 07:31 Pulse 97 H 04/05/20 12:09 Pulse Rhythm Regular 04/05/20 08:41 Pulse 71 04/04/20 10:01 Respiratory Rate 16 04/05/20 11:30 Respiratory Effort 04/05/20 08:41 Respiratory Depth Normal 04/05/20 08:41 Respiratory Pattern Normal 04/05/20 08:41 Blood Pressure 132/84 04/05/20 07:31 Blood Pressure Mean 90 04/04/20 11:04 Blood Pressure Position Supine 04/04/20 08:00 Pulse Oximetry 96 04/05/20 11:30 Respiratory End-tidal CO2 27 04/03/20 01:01 Oxygen Delivery Method Room Air 04/05/20 11:30 Oxygen Flow Rate 0 04/05/20 11:30 Pain Level 0 04/04/20 15:32 Intake & Output 04/04/20 04/05/20 04/05/20 23:59 11:59 23:59 Intake Total 370 / 2937.917 680 / 1160 480 / 1160 Output Total 1300 / 1650 1800 / 1800 Balance -930 / 1287.917 -1120 / -640 480 / -640 Intake: IV 120 / 1967.917 200 / 200 Oral 250 / 970 480 / 960 480 / 960 Output: Urine 1300 / 1650 1800 / 1800 Other: Urine Color Yellow Yellow Urine Appearance Clear Clear Urine Odor Normal None Voiding Methods Urinal Urinal Data Completed and Pending Labs on day of discharge: Labs from last 24 hours 04/05/20 06:40 Sodium 139 Potassium 3.9 Chloride 104 Carbon Dioxide 26.5 Anion Gap 8.5 BUN 13 Creatinine 0.80 Estimated GFR/1.73 m2 >= 60.00 Glucose 93 Calcium 8.3 L Magnesium 2.2 Creatine Kinase 214 Preliminary micro results at discharge 04/03/20 09:45 Blood Culture - Preliminary Blood NO GROWTH 48 HOURS 04/03/20 09:30 Blood Culture - Preliminary Blood NO GROWTH 48 HOURS 04/03/20 11:45 Sputum Culture - Preliminary Sputum Normal Betsy Ghazal Albicans [facility] Medical History (Updated 04/04/20 @ 11:09 by Louis Lee) Idiopathic thrombocytopenic purpura (ITP) Social History Smoking/Tobacco Use Status: Current every day Smoking risk assessment performed?: Yes
--- NOTE | 2020-04-05 18:36 | PDOC.CMDIS ---
LACE Index Scoring Tool - Questions: Length of Stay (in days): 3 Acuity (Admit via E.D.?): Yes E.D. Visits: 1 - Answers: Total Score: 7 Risk of Readmission: Low Risk Care Management Discharge Reason for Hospitalization: Polysubstance Overdose Discharge Plan: Anmol will return home when ready per MD. He will follow up with his PCP; Ivone Ruano at [facility]. He will transport via private vehicle with family, and return to his brother's home in [place]. His mother has agreed to transport him to [facility] daily. CM completed last dose letter and provided to [facility] for service resumption. Patient/Family Education Needs: Review of discharge instructions, discuss Ask Me Three. Reviewed community based and inpatient avenues for LYNDON support.
== END 2020-04-05 14:55 | disposition home or self-care (01) | DRG 682 ==
LOC: ER 15:01 → ICU 16:17 → MS 04-04 14:14
PROVIDERS: Family Medicine; Admitting Provider Internal Medicine; Emergency Provider Physician Assistant; Visit Provider Internal Medicine
DX: N17.9 Acute kidney failure, unspecified (principal); I21.A1 Myocardial infarction type 2; F11.20 Opioid dependence, uncomplicated; D69.3 Immune thrombocytopenic purpura; M62.82 Rhabdomyolysis; I24.8 Other forms of acute ischemic heart disease; R00.0 Tachycardia, unspecified; T43.621A Poisoning by amphetamines, accidental (unintentional), initial encounter; T42.6X1A Poisoning by other antiepileptic and sedative-hypnotic drugs, accidental (unintentional), initial encounter; T40.3X1A Poisoning by methadone, accidental (unintentional), initial encounter; E86.0 Dehydration; E66.9 Obesity, unspecified; Z68.33 Body mass index [BMI] 33.0-33.9, adult; R09.02 Hypoxemia
CPT/HCPCS: 36410; 36415; 36416; 51702; 80048; 80053; 80307; 82550; 82805; 84145; 87040; 93005; 94618; 96361; 96374; 99232; 99233; 99239; 99285; 99291; 36600; 70450; 71045; 80320; 80329; 81003; 81015; 83605; 83735; 84484; 85025; 85610; 85730; 86140; 87070; 87086; 87205; 93010; 93306; 94640; 94667; 94668; J1644; J2310; J7512; J7620

== ENCOUNTER 2020-07-03 13:50 | Outpatient (CLI) | payer MEDICARE, MEDICAID, SELFPAY ==
--- NOTE | 2020-07-03 13:45 | RT.EKG_ITS ---
APPROVED REPORT Exam: Resting ECG Patient Location: O HR:73 bpm ECG Measurements Heart Rate 73 AXIS CA 157 P 69 QRSd 116 QRS -32 QT 420 T 35 QTc 463 Conclusion Sinus rhythm...normal P axis, V-rate 50- 99 Normal Electrocardiogram
== END 2020-07-03 13:51 | disposition home or self-care (01) ==
LOC: DI.CARD 13:55
PROVIDERS: PCP Nurse Practitioner; Referring Provider Specialist/Technologist Athletic Trainer; Visit Provider Internal Medicine Cardiovascular Disease
DX: R77.8 Other specified abnormalities of plasma proteins (principal)
CPT/HCPCS: 93010

== ENCOUNTER → 2020-07-03 13:50 | Outpatient (BNVA) | payer MEDICARE, MEDICAID, SELFPAY | PROVIDERS: PCP Nurse Practitioner; Referring Provider Specialist/Technologist Athletic Trainer; Visit Provider Internal Medicine Cardiovascular Disease | DX: I21.4 Non-ST elevation (NSTEMI) myocardial infarction (principal); R77.8 Other specified abnormalities of plasma proteins; F19.20 Other psychoactive substance dependence, uncomplicated; F17.210 Nicotine dependence, cigarettes, uncomplicated | CPT/HCPCS: 93005; 99202; 99213 ==

== ENCOUNTER 2020-07-06 01:35 | Outpatient (CLI) | payer MEDICARE, MEDICAID, SELFPAY ==
--- NOTE | 2020-07-06 09:00 | ETT_ITS ---
APPROVED REPORT Exam: Exercise Treadmill Patient Location: Out-Patient Room/Bed: Stress Nurse: Lyndsey Hendricks RN Ordering Provider:TIMO VILLEGAS, Contact Number: [phone] BMI: 32.54 Baseline Rhythm: Sinus Rhythm Comment: borderline BBB Indications: NSTEMI Medical History Medical History: Polysubstance abuse, bipolar, idiopathic thrombocytopenic purpura, schizoaffective d isorder, NSTEMI, obesity, asthma Cardiac Medications: Risperidone, metoprolol succinate, methadone, pregabalin, albuterol sulfate Allergies: Shrimp, amoxicillin, penicillin, aspirin, sulfa antibiotics Cardiac Risk Factors: Asthma, obesity, smoker (current), CVD Previous Cardiac Procedures: None Pretest Chest Pain Characteristics: None Exercise History: Sedentary Physical Disabilities: None Lung Sounds: Clear to auscultation Heart Sounds: Regular Stress Test Details Test: Exercise stress testing was performed using a Adriel protocol. Rest Stress HR Resting HR Supine: 83 bpm Max Heart Rate (APMHR): 180 bpm Resting HR Standin bpm Target HR (85% APMHR): 153 bpm Max HR Achieved: 141 bpm % of APMHR: 78 Recovery HR: 89 bpm HR response to stress: Normal HR response to stress Comment: metoprolol succinate held for 48 hrs BP Resting BP Supine: 138/74 mmHg Resting BP Standin/76 mmHg Max BP: 158/78 mmHg Recovery BP: 130/72 mmHg BP response to stress: Normal blood pressure response to stress. ECG Resting ECG: Sinus Rhythm Ectopy: None Comment: Borderline BBB Stress ECG: Sinus Tachycardia ST Change: No significant ST segment changes noted Arrhythmia: Occasional PVCs Recovery ECG: Sinus Rhythm Recovery ST Change: No significant ST segment changes noted Clinical Reason for Termination: Dyspnea, Fatigue Stress Symptoms: Dyspnea, General Fatigue Exercise duration: 7 min52 sec Highest Stage Reached: Stage 3: 3.4 mph at 14% grade. Exercise capacity: 9.95 METs Sandoval Treadmill Score: 8 Rate Pressure Product: [id number] Stress ECG Conclusion 1. The resting electrocardiogram was normal. 2. Patient exercised on the Adriel protocol and completed a workload of 9.95 METS, limited by dyspnea and fatigue 3. Normal blood pressure response to exercise. Blunted heart rate response to exercise, possibly due to medication. Patient achieved 78% of predicted heart rate for age 4. This was a submaximal exercise test. At this heart rate and workload there was no evidence of ana cardial ischemia 5. There were occasional PVCs Sandoval Treadmill Score is 8 which is Low risk. Stress Test Summary STAGE Time (mins) Speed (mph) Grade (%) HR BP SYMPTOMS METS Supine 83 138/74 Standing 91 130/76 1 3 1.7 10 110 140/74 4.6 2 6 2.5 12 120 7 3 9 3.4 14 138 10.2 1 min recovery 128 158/78 3 min recovery 95 142/74 6 min recovery 89 130/72
== END 2020-07-06 01:55 ==
PROVIDERS: PCP Nurse Practitioner; Visit Provider Internal Medicine Cardiovascular Disease
DX: I21.4 Non-ST elevation (NSTEMI) myocardial infarction (principal); J45.909 Unspecified asthma, uncomplicated; E66.9 Obesity, unspecified; F17.210 Nicotine dependence, cigarettes, uncomplicated; I25.10 Atherosclerotic heart disease of native coronary artery without angina pectoris
CPT/HCPCS: 93016; 93018; 93017

== ENCOUNTER 2020-12-23 09:27 | Emergency (ER) | payer MEDICARE, MEDICAID, SELFPAY ==
[2020-12-23] VITALS (24 sets, daily range): BP systolic 120–155; BP diastolic 69–99; PULSE 90–114; RESP 4–27; TEMP 36.7; O2SAT 87–98
--- NOTE | 2020-12-23 09:30 | RT.EKG_ITS ---
APPROVED REPORT Exam: Resting ECG Reason for Exam: shortness of breath Patient Location: E HR:104 bpm ECG Measurements Heart Rate 104 AXIS NV 144 P 75 QRSd 109 QRS -43 QT 358 T 66 QTc 472 Conclusion Sinus tachycardia...rate> 99 Left axis deviation...QRS axis (-30,-90)
--- NOTE | 2020-12-23 09:45 | DI.CT_ITS ---
Exam(s) CT HEAD WO EXAM: CT HEAD WO CLINICAL HISTORY: headache. TECHNIQUE: Imaging Protocol: Axial computed tomography images with coronal and sagittal reformatted images were created and reviewed COMPARISON: CT CT HEAD WO from 04/02/2020 FINDINGS: Ventricles and Extra axial spaces: Normal in size and morphology for the patient's age. Hemorrhage: None. Cerebral parenchyma: Normal. Midline shift: None. Brainstem/Cerebellum: Normal. Calvarium: Normal. Visualized Paranasal sinuses/Mastoids: There is a small mucous retention cyst or polyp in the left ma xillary sinus. The remaining visualized paranasal sinuses and mastoid air cells are clear. Soft Tissues: Unremarkable. IMPRESSION: No acute intracranial process. RADIATION DOSE DELIVERED: 837.94mGy.cm Total DLP DATA REPOSITORY: All CT scans at this facility are submitted to the National Radiology Data Registry (NRDR) Dose Index Registry (DIR) with the [employer] (ACR). RADIATION OPTIMIZATION: All CT scans at this facility use at least one of these dose optimization te chniques: automated exposure control; mA and/or kV adjustment per patient size (includes targeted exa ms where dose is matched to clinical indication); or iterative reconstruction.
--- NOTE | 2020-12-23 09:53 | ED.GENADUL_ITS ---
Discharge Plan Disposition Patient Disposition: HOME Condition: Stable Discharge Details Clinical Impression: Headache, Nausea & vomiting, COPD exacerbation, Abdominal pain, Shortness of breath Primary Care Provider: Unknown,Unknown ED Provider: Tera Jaeger Home Meds and New Rx's Prescriptions: New prednisone 20 mg tablet 60 mg PO DAILY 4 Days Qty: 12 RF: 0 levofloxacin 750 mg tablet 750 mg PO DAILY Qty: 5 RF: 0 Continued risperidone 4 mg tablet 4 mg PO BID RF: 0 methadone 10 mg/mL Concentrate 70 mg PO DAILY RF: 0 albuterol sulfate [Ventolin HFA] 90 mcg/actuation HFA aerosol inhaler 2 inh INHALATION Q4H PRN PRNRF: 0 pregabalin 75 mg capsule 75 mg PO TID RF: 0 Discharge Instructions Instructions: COPD (Chronic Obstructive Pulmonary Disease) (ED) Additional Instructions: your blood work and imaging did not show concerning findings at this time, this is likely your copd causing your symptoms follow up with your primary care provider within a week if you feel more ill, have worsening shortness of breath or severe worsening pain return to the emergency department Medical Decision Making 40 yo male with hx of prior substance abuse on methadone and states he no longer uses drugs other than marijuana, smoker, who comes in with complaint of not feeling well. HE states yesterday he had nausea and then a frontal headache that slowly worsened and was not the worst of his life and is now resolved. He did have a subjective fever last night. Denies neck stiffness or pain. He woke up to day with cough, shortness of breath, n/v and mid abdomen pain. He denies known covid exposures. He has no chest pain. He is speaking in full sentences and on room air is 90%, is a chronic smoker so this could be his baseline. He has wheezing in all lung velasquez and mild mid abdomen tenderness, no guarding or distention. No focal motor or sensation deficits, CN II-XII intact, perrl, no meningismus. I suspect viral illness vs covid but will obtain ct head to evaluate for possible ich, unlikely sah as not thunderclap and not the worst of his life. Will treat for copd with neb and steroids. No chest pain or pressure so doubt acs but will evaluate with ekg and troponin. Concern for possible PE as his wells score is moderate given PE is just as likely as other diagnoses for his shortness of breath, will obtain cta. I suspect his abodminal pain is from the vomit and possible gastritis but will obtain ct to evaluate for possible sbo among other surgical pathology. His exam is inconsistent with automotive glass technician infection, no meningismus and headache has resolved. labs unremarkable, ct head unremarkable, has patchy infiltrates bilaterally and given his copd history suspect this is the cause and will treat with oral antibiotics. He feels significantly better and requesting d/c. I did discuss performing an LP but after discussing risks/benefits and low likelihood of sah and automotive glass technician infection he declines at this time and has decision making capacity. Will start prednisone, levofloxacin. Advised to f/u with his pcp and return precautions given. No longer has any abdominal tenderness Differential Diagnosis Differential Diagnosis: tension headache, subdural, PE, copd, sbo Medical Records Medical records reviewed: Yes I reviewed the patient's medical records. Imaging Data Radiologic Study: Attestation: I personally reviewed and interpreted this imaging study as follows: Imaging: CT Scan Radiologist's impression: PROCEDURE INFORMATION: Exam: CT Head Without Contrast Exam date and time: 12/23/2020 9:52 AM Age: 40 years old Clinical indication: Other: Headache TECHNIQUE: Imaging protocol: Computed tomography of the head without contrast. Radiation optimization: All CT scans at this facility use at least one of these dose optimization techniques: automated exposure control; mA and/or kV adjustment per patient size (includes targeted exams where dose is matched to clinical indication); or iterative reconstruction. COMPARISON: CT HEAD WO 04/02/2020 1:34 PM FINDINGS: Brain: No evidence of acute infarct, acute hemorrhage, or intracranial mass. Cerebral ventricles: No ventriculomegaly. Paranasal sinuses: Clear Mastoid air cells: Clear Bones/joints: No acute skull fracture Soft tissues: Unremarkable superficial soft tissues IMPRESSION: No acute intracranial process Radiologic Study #2: Attestation: I personally reviewed and interpreted this imaging study as follows: Imaging: CT Scan Radiologist's impression: 1. No evidence of pulmonary embolus to the segmental level. 2. No aneurysm of the aorta. 3. No dissection of the aorta. 4. Patchy bilateral opacities may represent multifocal pneumonia including COVID-19.. Lab Data Lab results reviewed: Yes I reviewed the patient's lab results. ECG Data Attestation: I personally reviewed and interpreted this ECG (s) as follows: Prior ECG tracings: available for review Interpretation: sinus tachycardia, rate of 104, no acute st t wave ischemic findings HPI General Mode of arrival: ambulatory . Date/Time Provider Initiated Documentation: 12/23/20 09:28 . Limitations to Documentation: no limitations . Information obtained by: patient . History of Present Illness 40 year old M presents to the emergency department with the chief complaint of ambulatory, described as moderate, Patient started experiencing this day(s) (1) and it has been constant. No relieving factors improve symptom(s), No exacerbating factors reported . Patient did receive the following treatments prior to arrival, none Related Data Home Medications Medication Instructions Recorded Confirmed albuterol sulfate [Ventolin HFA] 2 inh INHALATION Q4H PRN PRN 04/02/20 12/23/20 methadone 70 mg PO DAILY 04/02/20 12/23/20 pregabalin 75 mg PO TID 04/02/20 12/23/20 risperidone 4 mg PO BID 04/02/20 12/23/20 levofloxacin 750 mg PO DAILY #5 tab 12/23/20 prednisone 60 mg PO DAILY 4 Days #12 tab 12/23/20 Previous Rx's Medication Instructions Recorded levofloxacin 750 mg PO DAILY #5 tab 12/23/20 prednisone 60 mg PO DAILY 4 Days #12 tab 12/23/20 Allergies Allergy/AdvReac Type Severity Reaction Status Date / Time amoxicillin Allergy Severe Anaphylaxsi Unverified 12/23/20 09:42 s Penicillins Allergy Severe Anaphylaxsi Unverified 12/23/20 09:42 s shrimp Allergy Severe Anaphylaxsi Unverified 12/23/20 09:42 s Sulfa (Sulfonamide Allergy Unverified 12/23/20 09:42 Antibiotics) aspirin AdvReac Mild Unverified 12/23/20 09:42 General Stated Complaint: GenMedical CHAVEZ: 3 Review of Systems All systems reviewed & are unremarkable except as noted in HPI and below Constitutional Constitutional: Denies chills and Denies weakness Cardiovascular Cardiovascular: Denies chest pain Respiratory Respiratory: Denies cough Genitourinary Genitourinary: Denies dysuria Musculoskeletal Musculoskeletal: Denies joint swelling Integumentary/Breasts Skin/Breast: Denies rash Neurologic Neurologic: Denies weakness Psychiatric Psychiatric: Denies depression [facility] Medical History (Updated 12/23/20 @ 12:11 by Tera Jaeger MD) Abscess of left upper extremity Bipolar disorder Idiopathic thrombocytopenic purpura (ITP) IV drug user Polysubstance abuse Schizoaffective disorder, chronic condition Patient is not sure which schizo disorder he has Surgical History History of repair of anterior cruciate ligament of right knee Status post incision and drainage Surgical complication involving left eye Family History Other Diabetes Heart disease Social History Smoking/Tobacco Use Status: Current every day Tobacco Type: cigarettes Smoking packs per day: 2 Smoking cigarettes per day: 40.0 Years smoked: 10 Smoking pack- years: 20.00 Counseling given: provider counseling, support medications and counseling >3 minutes Smoking risk assessment performed?: Yes Alcohol Intake: former Drug use: Never Substance use type: heroin, opiates, painkillers, IV drugs, methamphetamine and prescription drug Counseling given: Yes Counseling provided: provider counseling Details: methadone Do you feel safe in your relationship?: Yes Exam Const General: no acute distress Orientation: alert HENMT Head: normal to inspection Ears: external ears normal General nose exam: external nose normal Mouth: moist mucous membranes Eyes General: appearance normal, both eyes and all related structures Neck Neck: normal visual inspection Resp Effort & Inspection: normal respiratory effort and able to speak in complete sentences Cardio Rate: regular rate Skin General skin exam: no rashes or lesions noted Neuro General: patient alert and patient oriented x3 Extrem General: normal to inspection Psych Mental Status: mental status grossly normal Course Vital Signs Vital signs: Vital Signs Temperature 36.7 C 12/23/20 09:36 Pulse 98 H 12/23/20 09:36 Respiratory Rate 16 12/23/20 09:36 Blood Pressure 155/99 H 12/23/20 09:36 Pulse Oximetry 91 L 12/23/20 09:36 Temperature 36.7 C 12/23/20 09:36 Temperature Source Skin 12/23/20 09:36 Pulse 98 H 12/23/20 09:36 Respiratory Rate 16 12/23/20 09:36 Respiratory Effort Non-Labored 12/23/20 09:36 Blood Pressure 155/99 H 12/23/20 09:36 Blood Pressure Position Sitting 12/23/20 09:36 Pulse Oximetry 91 L 12/23/20 09:36 Oxygen Delivery Method Room Air 12/23/20 09:36 Oxygen Flow Rate 0 12/23/20 09:36 Pain Level 0 12/23/20 09:36
[2020-12-23] MEDS: methylPREDNISolone SUCC 125 MG VIAL IVP (10:02)
[2020-12-23] MEDS: Ondansetron 4 MG/2 ML VIAL IVP (10:02)
[2020-12-23 10:26] LABS: Source Nasal/Nares
[2020-12-23 10:29] LABS: Abs Immature Grans 0.01 10^3/uL (0.0-0.06); Absolute Basophil Count 0.03 10^3/uL (0.0-0.2); Absolute Eosinophil Count 0.01 10^3/uL (0.0-0.7); Absolute Lymphocyte Count 0.66 10^3/uL (1.2-3.4); Absolute Monocyte Count 0.59 10^3/uL (0.1-0.8); Absolute Neutrophil Count 7.28 10^3/uL (1.2-6.7); Basophils % 0.3; Eosinophils % 0.1; HCT 43.7 % (40.0-50.0); HGB 14.2 g/dL (13.5-17.5); Immature Grans % 0.1; Lymphocytes % 7.7; MCH 28.7 pg (27.0-33.0); MCHC 32.5 % (32.0-36.0); MCV 88.3 fL (80-95); Monocytes % 6.9; Neutrophils % 84.9; Nucleated RBC 0 %; Platelet Count 251 10^3/uL (130-400); RBC 4.95 10^6/uL (4.36-5.78); RDW 13.1 % (11.8-14.1); RDW-SD 42.1 fL; WBC 8.58 10^3/uL (4.4-10.8)
[2020-12-23 10:31] LABS: BE (Venous) 8 mmol/L (-2-3); HCO3 (Venous) 33 mmol/L (23-28); O2 Sat (Venous) 90 %; TCO2 (Venous) 29 mmol/L (24-29); pCO2 (Venous) 52 mmHg (41-51); pO2 (Venous) 50 mmHg
[2020-12-23] MEDS: Omnipaque 350 MG/ML 100 ML BTL IJ (10:39)
[2020-12-23] MEDS: Normal Saline 1,000 ML 1000 ML IV (10:39)
[2020-12-23] MEDS: Normal Saline - Diluent 50 ML VIAL IV (10:42)
[2020-12-23] MEDS: Normal Saline Flush 10 ML SYR IVP (10:43)
--- NOTE | 2020-12-23 11:00 | DI.CT_ITS ---
Exam(s) CT CHEST PE ABD PELVIS W EXAM: CT CHEST PE ABD PELVIS W CLINICAL HISTORY: sob, n/v and pain. TECHNIQUE: Imaging Protocol: Axial CT angiography was performed with multi-slice acquisition and mu lti-planar and/or 3D reconstructions. CONTRAST MATERIAL: Intravenous: Omnipaque 350 Contrast volume:100 mL COMPARISON: No exams were available for comparison FINDINGS: The examination is limited due to patient motion artifact. CHEST: Pulmonary Arteries: No evidence of filling defect to suggest pulmonary emboli. Tracheobronchial tree: Patent where visualized. Mediastinum and Shahla: Mildly enlarged lymph nodes in the mediastinum and hilum which may be reactive. Pulmonary parenchyma: Ground-glass opacities seen in the right and left lower lobes and the left uppe r lobe. No architectural distortion. Pleura: No effusion or pneumothorax. Heart: The heart is not dilated. No coronary artery calcifications are seen. No pericardial effusion. Aorta: Thoracic aorta non-dilated. No dissection. Bones: Within normal limits for the patient's age. Soft tissues: Unremarkable. ABDOMEN: Liver: Fatty infiltration of the liver. No measurable mass. Portal, Superior Mesenteric, and Splenic Veins: Unremarkable. Gallbladder and Biliary Tract: No radiodense calculus or dilation. Pancreas: Normal density, no abnormal calcifications or inflammatory process. Spleen: Normal. Adrenals: No masses seen. Kidneys: Normal size, contour and axis. No radiodense stones or obstructive uropathy. There is a simp le cyst in the midpole of the left kidney. No follow-up is recommended. Abdominal Aorta: Abdominal portion non-dilated. Bowel: No obstruction or bowel wall thickening. Appendix is unremarkable. Peritoneal Cavity: No ascites, collection or mesenteric inflammatory response. No free air. Lymph Nodes: Within normal limits. Bones: Within normal limits for the patient's age. Soft Tissues: Unremarkable. PELVIS: Bladder: Symmetric distention, no gross wall thickening. Reproductive Organs: Unremarkable as visualized. Lymph Nodes: Within normal limits. Bones: Within normal limits. IMPRESSION: 1. No evidence pulmonary embolism, thoracic aortic dissection or aneurysm. 2. Multifocal bilateral pulmonary opacities suspicious for multifocal pneumonia. Covid 19 should be included in the differential. 3. No acute abdominal or pelvic process. RADIATION DOSE DELIVERED: 2,220.35mGy.cm Total DLP DATA REPOSITORY: All CT scans at this facility are submitted to the National Radiology Data Registry (NRDR) Dose Index Registry (DIR) with the [employer] (ACR). RADIATION OPTIMIZATION: All CT scans at this facility use at least one of these dose optimization te chniques: automated exposure control; mA and/or kV adjustment per patient size (includes targeted exa ms where dose is matched to clinical indication); or iterative reconstruction.
--- NOTE | 2020-12-23 11:06 | DI.VRAD_ITS ---
PROCEDURE INFORMATION: Exam: CT Head Without Contrast Exam date and time: 12/23/2020 9:52 AM Age: 40 years old Clinical indication: Other: Headache TECHNIQUE: Imaging protocol: Computed tomography of the head without contrast. Radiation optimization: All CT scans at this facility use at least one of these dose optimization techniques: automated exposure control; mA and/or kV adjustment per patient size (includes targeted exams where dose is matched to clinical indication); or iterative reconstruction. COMPARISON: CT HEAD WO 04/02/2020 1:34 PM FINDINGS: Brain: No evidence of acute infarct, acute hemorrhage, or intracranial mass. Cerebral ventricles: No ventriculomegaly. Paranasal sinuses: Clear Mastoid air cells: Clear Bones/joints: No acute skull fracture Soft tissues: Unremarkable superficial soft tissues IMPRESSION: No acute intracranial process Dictated and Authenticated by: Lauro Garg MD. Ordering:BERENICE Haley MD
[2020-12-23 11:09] LABS: ALT 25 U/L (16-63); AST 17 U/L (15-37); Albumin 3.7 g/dL (3.4-5.0); Alkaline Phosphatase 67 U/L (46-116); Anion Gap 5.2 mmol/L (3-11); BUN 6 mg/dL (7-18); Bilirubin, Direct 0.1 mg/dL (0.0-0.2); Bilirubin, Total 0.5 mg/dL (0.2-1.0); CO2 32.8 mmol/L (21.0-32.0); CREATININE 0.9 mg/dL (0.70-1.30); Calcium 8.7 mg/dL (8.5-10.1); Chloride 100 mmol/L (98-107); Glucose 141 mg/dL (74-106); Lipase 88 U/L (73-393); Magnesium 2.2 mg/dL (1.8-2.4); Potassium 3.7 mmol/L (3.5-5.1); Sodium 138 mmol/L (136-145); TSH (W/Ref FT4) 0.36 uIU/mL (0.36-3.74); Total Protein 7.5 g/dL (6.4-8.2)
[2020-12-23 11:14] LABS: Troponin I < 0.05 ng/mL (<0.06)
--- NOTE | 2020-12-23 11:25 | DI.VRAD_ITS ---
PROCEDURE INFORMATION: Exam: CTA Chest With Contrast Exam date and time: 12/23/2020 10:49 AM Age: 40 years old Clinical indication: Other: SOB, n/v and pain TECHNIQUE: Imaging protocol: Computed tomographic angiography of the chest with contrast. 3D rendering (Not supervised by radiologist): MIP and/or 3D reconstructed images were created by the technologist. Radiation optimization: All CT scans at this facility use at least one of these dose optimization techniques: automated exposure control; mA and/or kV adjustment per patient size (includes targeted exams where dose is matched to clinical indication); or iterative reconstruction. Contrast material: OMNIPAQUE 350; Contrast volume: 100 ml; Contrast route: INTRAVENOUS (IV); COMPARISON: CR XR PORTABLE CHEST AP 04/03/2020 8:22 AM FINDINGS: Pulmonary arteries: No evidence of pulmonary embolus to the segmental level. Aorta: No aneurysm of the aorta. No dissection of the aorta. Lungs: Patchy bilateral opacities may represent multifocal pneumonia including COVID-19.. Pleural spaces: Unremarkable. No pneumothorax. No pleural effusion. Heart: Unremarkable. No cardiomegaly. No pericardial effusion. Lymph nodes: Mild bilateral hilar adenopathy Bones/joints: Unremarkable. No acute fracture. Soft tissues: Unremarkable. IMPRESSION: 1. No evidence of pulmonary embolus to the segmental level. 2. No aneurysm of the aorta. 3. No dissection of the aorta. 4. Patchy bilateral opacities may represent multifocal pneumonia including COVID-19.. PROCEDURE INFORMATION: Exam: CT Angiography Abdomen With Contrast Exam date and time: 12/23/2020 10:49 AM Age: 40 years old Clinical indication: Other: SOB, n/v and pain TECHNIQUE: Imaging protocol: Computed tomographic angiography images of the abdomen with intravenous contrast material. 3D rendering (Not supervised by radiologist): MIP and/or 3D reconstructed images were created by the technologist. Radiation optimization: All CT scans at this facility use at least one of these dose optimization techniques: automated exposure control; mA and/or kV adjustment per patient size (includes targeted exams where dose is matched to clinical indication); or iterative reconstruction. Contrast material: OMNIPAQUE 350; Contrast volume: 100 ml; Contrast route: INTRAVENOUS (IV); COMPARISON: CR XR PORTABLE CHEST AP 04/03/2020 8:22 AM FINDINGS: Aorta: No aortic aneurysm. No aortic dissection. Celiac trunk and mesenteric arteries: No occlusion or significant stenosis. Renal arteries: No occlusion or significant stenosis. Liver: Normal. No mass. Gallbladder and bile ducts: Normal. No calcified stones. No ductal dilation. Pancreas: Normal. No ductal dilation. Spleen: Normal. No splenomegaly. Adrenals: Normal. No mass. Kidneys and ureters: 10 mm simple cyst left kidney . No follow-up imaging recommended . Stomach and bowel: Unremarkable. No obstruction. No mucosal thickening. Appendix: Normal appendix Lymph nodes: Unremarkable. No enlarged lymph nodes. Intraperitoneal space: Unremarkable. No free air. No significant fluid collection. Bones/joints: Unremarkable. No acute fracture. No dislocation. Soft tissues: Unremarkable. IMPRESSION: No acute process Dictated and Authenticated by: Louisa Camarena MD. Ordering:BERENICE Haley MD
[2020-12-23 11:35] LABS: COVID-19 PCR Negative (Negative)
[2020-12-23] MEDS: Albuterol/Ipratropium 3 ML UPD VIAL UPD (11:49)
== END 2020-12-23 12:19 | disposition home or self-care (01) ==
PROVIDERS: Emergency Provider Emergency Medicine
DX: R11.2 Nausea with vomiting, unspecified (principal); R51.9 Headache, unspecified; J44.1 Chronic obstructive pulmonary disease with (acute) exacerbation; R06.02 Shortness of breath; R10.13 Epigastric pain; Z20.822 Contact with and (suspected) exposure to COVID-19; Z03.818 Encounter for observation for suspected exposure to other biological agents ruled out; F17.210 Nicotine dependence, cigarettes, uncomplicated; F11.20 Opioid dependence, uncomplicated; F31.9 Bipolar disorder, unspecified
CPT/HCPCS: 36415; 71275; 74177; 80053; 82805; 83690; 87635; 93005; 94640; 96361; 96374; 96375; 99285; 70450; 82248; 83735; 84443; 84484; 85025; 93010; J2405; J2930; J3490; J7620

== ENCOUNTER 2021-04-19 03:45 | Outpatient (CLI) | payer MEDICARE, MEDICAID, SELFPAY ==
[2021-04-19 14:07] LABS: ALT 25 U/L (16-63); AST 16 U/L (15-37); Albumin 3.8 g/dL (3.4-5.0); Alkaline Phosphatase 71 U/L (46-116); Anion Gap 7.7 mmol/L (3-11); BUN 12 mg/dL (7-18); Bilirubin, Total 0.5 mg/dL (0.2-1.0); CO2 31.3 mmol/L (21.0-32.0); CREATININE 1.1 mg/dL (0.70-1.30); Calcium 8.7 mg/dL (8.5-10.1); Chloride 99 mmol/L (98-107); Glucose 89 mg/dL (74-106); Potassium 4.3 mmol/L (3.5-5.1); Sodium 138 mmol/L (136-145); Total Protein 7.1 g/dL (6.4-8.2)
== END 2021-04-19 03:46 | disposition home or self-care (01) ==
PROVIDERS: Visit Provider Nurse Practitioner
DX: M54.2 Cervicalgia (principal)
CPT/HCPCS: 36415; 80053

== ENCOUNTER 2022-04-13 19:15 | Emergency (ER) | payer MEDICARE, MEDICAID, SELFPAY ==
[2022-04-13 19:18] VITALS: BP 140/86; PULSE 99; RESP 18; TEMP 37; O2SAT 96
--- NOTE | 2022-04-13 20:00 | ED.GENADUL_ITS ---
Discharge Plan Disposition Patient Disposition: Home Condition: Stable Discharge Details Clinical Impression: Chronic pain Primary Care Provider: Ivone Ruano ED Provider: Louis Corbett Home Meds and New Rx's Prescriptions: Continued risperidone 4 mg tablet 4 mg PO BID Label Comments: TAKE 1 TABLET BY MOUTH TWICE DAILY methadone 10 mg/mL Concentrate 70 mg PO DAILY pregabalin 75 mg capsule 75 mg PO TID Label Comments: TK ONE C PO TID Discharge Instructions Instructions: Chronic Pain (ED) Additional Instructions: Flu, COVID, RSV negative. Please watch for new or worsening symptoms and return to the ER for any concerns. Lastly, please contact your primary care provider on Friday if you are still having symptoms discuss your ER visit need for outpatient reevaluation Medical Decision Making 42-year-old gentleman reports chronic pain, waking this morning feeling as though he did not sleep in a good position, increased neck pain causing a headache and a subsequent episode of vomiting. Patient states that the symptoms resolved spontaneously on their own and he felt well the rest of the day. He subsequently received a call from his brother stating that he had COVID, he recalled that his granddaughter had the flu, would like to be tested for both. He denies fever, worsening cough, or any other signs of illness. Clinically he appears well. Will obtain flu, COVID, RSV. Flu, RSV, COVID-negative. Discussed results with patient. He is relieved and requesting discharge. I see no clear indication for additional work-up here in the ER. He is afebrile, no evidence of nuchal rigidity. Currently asymptomatic. Standard discharge and return precautions were provided. Patient understands, is agreeable to this plan, and has no additional questions or concerns upon discharge. This documentation was generated using [employer] system, please disregard any oddities of phrase or misspellings. Medical Records Medical records reviewed: Yes I reviewed the patient's medical records. Lab Data Lab results reviewed: Yes I reviewed the patient's lab results. Labs: Laboratory Tests Range/Units 04/13/22 19:37 COVID-19 Source Nasopharynx SARS-CoV-2 (PCR) (Negative) Negative Influenza Type A (PCR) (Negative) Negative Influenza Type B (PCR) (Negative) Negative RSV (PCR) (Negative) Negative HPI General Mode of arrival: ambulatory . Date/Time Provider Initiated Documentation: 04/13/22 19:30 . Limitations to Documentation: no limitations . Information obtained by: patient . HPI Narrative: This is a 42-year-old gentleman who reports past medical history of COPD, polysubstance abuse, chronic pain, bipolar disorder, on methadone, presenting to the ER this evening requesting COVID and flu testing. Patient states that he does have chronic neck pain, sometimes sleeps awkwardly causing increase headache. He states he woke this morning felt as though he slept awkwardly, had an episode of vomiting this morning. Though symptoms went away completely and he is currently asymptomatic but later in the day received a call from his brother reporting that his brother had COVID and then he remembered that his gr anddaughter had the flu last week, concerned that his symptoms this morning may be secondary to these exposures. He has not taken any [id number] medication for his symptoms. Related Data Home Medications Medication Instructions Recorded Confirmed methadone 10 mg/mL oral concentrate 70 mg PO DAILY 04/02/20 04/13/22 pregabalin 75 mg capsule 75 mg PO TID 04/02/20 04/13/22 risperidone 4 mg tablet 4 mg PO BID 04/02/20 04/13/22 Allergies Allergy/AdvReac Type Severity Reaction Status Date / Time amoxicillin Allergy Severe Anaphylaxsi Unverified 04/13/22 19:47 s Penicillins Allergy Severe Anaphylaxsi Unverified 04/13/22 19:47 s shrimp Allergy Severe Anaphylaxsi Unverified 04/13/22 19:47 s Sulfa (Sulfonamide Allergy Unverified 04/13/22 19:47 Antibiotics) aspirin AdvReac Mild Unverified 04/13/22 19:47 General Stated Complaint: Headache CHAVEZ: 3 Review of Systems Constitutional Constitutional: Denies fever(s), Reports headache(s) and Denies weakness ENT Ears, Nose, Mouth, and Throat: Reports headache(s), Reports neck pain and Denies sore throat Cardiovascular Cardiovascular: Denies chest pain and Denies dyspnea Respiratory Respiratory: Reports cough (chonic) and Denies dyspnea Gastrointestinal Gastrointestinal: Denies abdominal pain and Reports vomiting Musculoskeletal Musculoskeletal: Reports back pain (chronic) and Reports neck pain Integumentary/Breasts Skin/Breast: Denies rash Neurologic Neurologic: Reports headache(s) and Denies weakness [facility] All Active Problems (Updated 04/13/22 @ 20:41 by CHRISTIAN Dumont) Headache (Acute) Nausea & vomiting (Acute) COPD exacerbation (Acute) Abdominal pain (Acute) Shortness of breath (Acute) Chronic pain (Chronic) Polysubstance (excluding opioids) dependence (Acute) Drug overdose (Acute) Elevated troponin I level (Acute) Polysubstance overdose (Acute) Unresponsive episode (Acute) Elevated troponin (Acute) NSTEMI (non-ST elevated myocardial infarction) (Acute) Rhabdomyolysis (Acute) Discharge planning issues (Acute) Open wnd wrist-complic (Acute) Tobacco abuse (Chronic) Bipolar disorder (Chronic) IV drug abuse (Chronic) Methamphetamine abuse (Chronic) DVT prophylaxis (Acute) Discharge planning issues (Acute) Abscess or cellulitis of wrist (Acute) Medical History (Updated 04/13/22 @ 20:41 by CHRISTIAN Dumont) Abscess of left upper extremity Bipolar disorder Idiopathic thrombocytopenic purpura (ITP) IV drug user Polysubstance abuse Schizoaffective disorder, chronic condition Patient is not sure which schizo disorder he has Surgical History History of repair of anterior cruciate ligament of right knee Status post incision and drainage Surgical complication involving left eye Family History Other Diabetes Heart disease Social History Smoking/Tobacco Use Status: Current every day Tobacco Type: cigarettes Smoking packs per day: 2 Smoking cigarettes per day: 40.0 Years smoked: 10 Smoking pack- years: 20.00 Counseling given: provider counseling, support medications and counseling >3 minutes Smoking risk assessment performed?: Yes Alcohol Intake: former Drug use: Never Substance use type: heroin, opiates, painkillers, IV drugs, methamphetamine and prescription drug Counseling given: Yes Counseling provided: provider counseling Details: methadone Do you feel safe in your relationship?: Yes Exam Const General: cooperative, comfortable and no acute distress Orientation: alert, awake and oriented x3 HENMT Head: normal to inspection, normocephalic and atraumatic Face and sinus: normal facial exam Mouth: oral mucosae normal and moist mucous membranes Throat: posterior oropharynx normal Eyes General: appearance normal, both eyes and all related structures Conjunctivae: conjunctivae normal Neck Neck: normal visual inspection, full ROM, no lymphadenopathy, no meningeal signs, trachea midline, supple and nontender Resp Effort & Inspection: normal respiratory effort and able to speak in complete sentences Auscultation: clear to auscultation bilaterally Cardio Rate: regular rate Rhythm: regular rhythm GI Palpation: soft and nontender Skin General skin exam: no rashes or lesions noted Neuro General: patient alert, patient awake, moves all extremities and no focal motor deficits Sensory Exam: no sensory deficits noted Psych Appearance: grossly normal Mental Status: mental status grossly normal Course Vital Signs Vital signs: Vital Signs Temperature 37.0 C 04/13/22 19:18 Pulse 99 H 04/13/22 19:18 Respiratory Rate 18 04/13/22 19:18 Blood Pressure 140/86 04/13/22 19:18 Pulse Oximetry 96 04/13/22 19:18 Temperature 37.0 C 04/13/22 19:18 Temperature Source Temporal Artery Scan 04/13/22 19:18 Pulse 99 H 04/13/22 19:18 Respiratory Rate 18 04/13/22 19:18 Respiratory Effort 04/13/22 19:33 Blood Pressure 140/86 04/13/22 19:18 Blood Pressure Position Sitting 04/13/22 19:18 Pulse Oximetry 96 04/13/22 19:18 Oxygen Delivery Method Room Air 04/13/22 19:18 Oxygen Flow Rate 0 04/13/22 19:18 Pain Level 0 04/13/22 19:18
[2022-04-13 20:24] LABS: COVID-19 PCR Negative (Negative); Influenza A PCR Negative (Negative); Influenza B PCR Negative (Negative); RSV PCR Negative (Negative)
[2022-04-13 20:30] LABS: Source Nasopharynx
[2022-04-13 20:44] VITALS: BP 115/77; PULSE 85; RESP 20; TEMP 36.9; O2SAT 98
== END 2022-04-13 20:47 | disposition home or self-care (01) ==
PROVIDERS: Emergency Provider Physician Assistant; PCP Nurse Practitioner
DX: G89.29 Other chronic pain (principal); M54.2 Cervicalgia; R51.9 Headache, unspecified; R11.10 Vomiting, unspecified; J44.9 Chronic obstructive pulmonary disease, unspecified; Z20.822 Contact with and (suspected) exposure to COVID-19
CPT/HCPCS: 87637; 99282

== ENCOUNTER 2022-07-30 07:00 | Inpatient (IN) | payer MEDICARE, MEDICAID, SELFPAY ==
[2022-07-30] VITALS (58 sets, daily range): BP systolic 115–148; BP diastolic 64–103; PULSE 77–109; RESP 4–27; TEMP 36.6–37.2; O2SAT 88–97
--- NOTE | 2022-07-30 07:45 | RT.EKG_ITS ---
APPROVED REPORT Exam: Resting ECG Reason for Exam: sob Patient Location: E HR:98 bpm ECG Measurements Heart Rate 98 AXIS NJ 137 P 72 QRSd 119 QRS 10 QT 364 T 56 QTc 464 Conclusion Sinus rhythm...normal P axis, V-rate 60- 99 Probable left atrial enlargement...P >50mS, <-0.10mV V1 Incomplete right bundle branch block...QRSd >112, terminal axis(90,270). Sinus. Normal axis. Incomplete RBBB. No STEMI. I have reviewed and interpreted ECG and agree with software generated interpretation.
--- NOTE | 2022-07-30 08:04 | W.ED.GENAD ---
Discharge Plan Disposition Patient Disposition: Admit to [facility] Discharge Details Chief Complaint: Nausea/Vomit/Diar Clinical Impression: Tobacco abuse, Elevated troponin, Nausea & vomiting, Acute exacerbation of chronic obstructive pulmonary disease (COPD) Primary Care Provider: Ivone Ruano ED Provider: Mellisa Hernandez Home Meds and New Rx's Prescriptions: No Action risperidone 4 mg tablet 4 mg PO BID Patient Comments: TAKE 1 TABLET BY MOUTH TWICE DAILY methadone 10 mg/mL Concentrate 110 mg PO DAILY pregabalin 75 mg capsule 75 mg PO TID Patient Comments: TK ONE C PO TID atorvastatin 10 mg tablet 10 mg PO QHS Medical Decision Making 42-year-old male with history of COPD, DC, on methadone presented for nausea and vomiting. Upon arrival was found to be diaphoretic and hypoxic. He was placed on nasal cannula oxygen. On examination he had diffuse inspiratory and expiratory wheezes. He was given DuoNeb and steroid. EKG shows tachycardia without any acute ischemic changes. Chest x-ray concerning for infiltrate. On reassessment he continues to have wheezing and continues to doze off which may be secondary to his methadone. His brother states that he is often tired and sleeps during the day after receiving his methadone. Patient is refusing Narcan at this time. Additional DuoNeb and IV magnesium worse ordered for COPD exacerbation. CTA of chest will be obtained. Laboratory studies do show an elevated white count as well as an elevated troponin. Will repeat troponin. Patient is aware that he will likely require admission. CT was obtained and concerning for possible mass versus infection. No pulmonary embolus. Results were discussed with patient. Unfortunately he has an anaphylactic reaction to penicillins and therefore I will not order cephalosporin at this time. His QT is not prolonged and therefore a dose of IV azithromycin was given. Repeat troponin is trending downward. Patient is more awake and alert at this time. Case was discussed with hospitalist will admit to their service for further monitoring and treatment. ECG Data Interpretation: 12 lead EKG performed at 7: 4898 Indication: Rhythm: Normal sinus rhythm Rate: 98 [place]:Normal Intervals: Normal QRS: Incomplete right bundle branch block ST segments: Normal T Waves: Normal INTERPRETATION: Sinus rhythm with incomplete bundle branch block Comparison to old EKG: No longer has left axis deviation The 12 lead EKG was interpreted by myself HPI General Date/Time Provider Initiated Documentation: 07/30/22 07:48. HPI Narrative: 42-year-old male with history of prior DC, COPD, on methadone presents for evaluation of nausea and vomiting. At time of my evaluation patient states that he woke up this morning and started having some nausea and vomiting. He states he ate liver and onions yesterday and potentially that caused the difficulty. He denies any diarrhea or constipation. No increased urinary frequency, dysuria, gross hematuria. He has had a cough lately with some sputum production. That has been different than his baseline. He states that started several days ago. He denies any chest pain. He was found to be hypoxic upon ED arrival. He does not feel short of breath at this time. He was found to be diaphoretic. He states that he has been having difficulty with sweating off and on. Patient stopped and got his morning dose of methadone prior to coming to the emergency department. He denies any other drug use. At time of my evaluation he stated that he has not had any change in his methadone dosage recently. He has been on methadone for 2 years. He also admits to having a history of DC. He does not recall exactly how long ago that was. He does not recall if he had any chest pain with the DC. He denies any leg pain or swelling. He is not on any blood thinners. He states that he took all of his normal medications last night including medications for high blood pressure and high cholesterol. He denies any abdominal pain. He states he has never been admitted to the hospital in the past for breathing difficulty. He has never been intubated. He does not have home oxygen. No recent home steroids or antibiotics. Of note, patient had different history for nursing upon ED arrival. Related Data Home Medications Medication Instructions Recorded Confirmed methadone 10 mg/mL oral concentrate 110 mg PO DAILY 04/02/20 04/13/22 pregabalin 75 mg capsule 75 mg PO TID 04/02/20 07/30/22 risperidone 4 mg tablet 4 mg PO BID 04/02/20 07/30/22 atorvastatin 10 mg tablet 10 mg PO QHS 07/30/22 07/30/22 Allergies Allergy/AdvReac Type Severity Reaction Status Date / Time amoxicillin Allergy Severe Anaphylaxsi Unverified 07/30/22 07:09 s Penicillins Allergy Severe Anaphylaxsi Unverified 07/30/22 07:09 s shrimp Allergy Severe Anaphylaxsi Unverified 07/30/22 07:09 s Sulfa (Sulfonamide Allergy Unverified 07/30/22 07:09 Antibiotics) aspirin AdvReac Mild Unverified 07/30/22 07:09 General Stated Complaint: Nausea/Vomit/Diar CHAVEZ: 3 PFSH All Active Problems (Updated 07/30/22 @ 12:53 by Mellisa Hernandez MD) Headache (Acute) Nausea & vomiting (Acute) COPD exacerbation (Acute) Abdominal pain (Acute) Shortness of breath (Acute) Acute exacerbation of chronic obstructive pulmonary disease (COPD) (Acute) Polysubstance (excluding opioids) dependence (Acute) Drug overdose (Acute) Elevated troponin I level (Acute) Polysubstance overdose (Acute) Unresponsive episode (Acute) Elevated troponin (Acute) NSTEMI (non-ST elevated myocardial infarction) (Acute) Rhabdomyolysis (Acute) Discharge planning issues (Acute) Open wnd wrist-complic (Acute) Tobacco abuse (Chronic) Bipolar disorder (Chronic) IV drug abuse (Chronic) Methamphetamine abuse (Chronic) DVT prophylaxis (Acute) Discharge planning issues (Acute) Abscess or cellulitis of wrist (Acute) Medical History (Updated 07/30/22 @ 12:53 by Mellisa Hernandez MD) Abscess of left upper extremity Bipolar disorder Idiopathic thrombocytopenic purpura (ITP) IV drug user Polysubstance abuse Schizoaffective disorder, chronic condition Patient is not sure which schizo disorder he has Surgical History History of repair of anterior cruciate ligament of right knee Status post incision and drainage Surgical complication involving left eye Family History Other Diabetes Heart disease Social History Smoking/Tobacco Use Status: Current every day Tobacco Type: cigarettes Smoking packs per day: 2 Smoking cigarettes per day: 40.0 Years smoked: 10 Smoking pack-years: 20.00 Counseling given: provider counseling, support medications and counseling >3 minutes Smoking risk assessment performed?: Yes Alcohol Intake: former Drug use: Never Substance use type: crack/cocaine and IV drugs Counseling given: Yes Counseling provided: provider counseling Details: methadone Do you feel safe at home: Yes Do you feel safe in your relationship?: Yes Exam Narrative Exam Narrative: General: non-toxic, no respiratory distress, diaphoretic HEENT: normocephalic, atraumatic, lids and lashes normal, pinpoint pupils, EOMI, anicteric sclera, no conjunctival injection, moist oral mucosa Card: Tachycardic, regular, S1S2, no murmurs, rubs, or gallops Lungs: Decreased air exchange, diffuse inspiratory and expiratory wheezes, no rales, rhonci, or retractions Abd: soft, non-tender, non-distended, normal bowel sounds, no rebound or guarding, no peritoneal signs, no CVAT Musculoskeletal: full range of motion of arms and legs, no tenderness to palpation. no clubbing, cyanosis, or edema Neurologic: appropriate for age, strength normal Psych: alert and oriented when stimulated Skin: no petechiae, no lesions, warm and dry Course 9 AM-on reassessment patient continues to have diffuse inspiratory and expiratory wheezing however has some increased aeration. Vital Signs Vital signs: Vital Signs Pulse 104 H 07/30/22 07:05 Respiratory Rate 18 07/30/22 07:05 Blood Pressure 145/94 H 07/30/22 07:05 Pulse Oximetry 88 L 07/30/22 07:05 Pulse 104 H 07/30/22 07:05 Respiratory Rate 18 07/30/22 07:05 Respiratory Effort Normal, Non-Labored 07/30/22 07:11 Blood Pressure 145/94 H 07/30/22 07:05 Blood Pressure Position Sitting 07/30/22 07:05 Pulse Oximetry 88 L 07/30/22 07:05 Oxygen Delivery Method Room Air 07/30/22 07:05 Oxygen Flow Rate 0 07/30/22 07:05 Critical Care Time Critical Care Time Attestation: CRITICAL CARE Total critical care time: 45 minutes Critical care concerns: Hypoxia, COPD exacerbation, elevated troponin, possible oversedation from methadone Critical care interventions: Oxygen, IV Solu-Medrol, DuoNeb, IV magnesium, antibiotics, record review, family discussion Total critical care time included the assessment and discussions as described in the emergency department history, physical, and medical decision making. The critical care time provided excludes separately billable procedures.
[2022-07-30] MEDS: methylPREDNISolone SUCC 125 MG VIAL IVP (08:14)
[2022-07-30] MEDS: Albuterol/Ipratropium 3 ML UPD VIAL UPD ×4 (08:14→21:09)
[2022-07-30 08:22] LABS: Abs Immature Grans 0.09 10^3/uL (0.0-0.06); Absolute Eosinophil Count 0.02 10^3/uL (0.0-0.7); Basophils % 0.4; Eosinophils % 0.1; HGB 14.4 g/dL (13.5-17.5); Immature Grans % 0.5; Lymphocytes % 6.5; MCH 28.7 pg (27.0-33.0); MCHC 32.7 % (32.0-36.0); MCV 88 fL (80-95); MPV 9.1 fL (8.0-11.0); Monocytes % 6.2; Neutrophils % 86.3; Platelet Count 253 10^3/uL (130-400); RBC 5.01 10^6/uL (4.36-5.78); RDW 12.6 % (11.8-14.1); RDW-SD 40.3 fL; WBC 16.97 10^3/uL (4.4-10.8)
[2022-07-30 08:25] LABS: Absolute Basophil Count 0.07 10^3/uL (0.0-0.2); Absolute Monocyte Count 1.05 10^3/uL (0.1-0.8); Absolute Neutrophil Count 14.65 10^3/uL (1.2-6.7)
--- NOTE | 2022-07-30 08:50 | DI.RAD_ITS ---
Exam(s) XR PORTABLE CHEST AP EXAM: XR PORTABLE CHEST AP CLINICAL HISTORY: SOB. TECHNIQUE: 2D digital imaging was performed. COMPARISON: CR XR PORTABLE CHEST AP from 04/03/2020 FINDINGS: Single AP portable view. Healed left 7th and 8th rib fractures again noted. Heart size is upper normal. The mediastinum is not widened. Increased density noted right hemithorax when compared left. Subtle suggestion of possible parahilar infiltrate on the right. No left-sided infiltrates. No pleural effusions. IMPRESSION: Possible right parahilar infiltrate. Asymmetry in the density of the [place] thoraces. Patient does no t appear rotated. Correlation with any clinical symptomology of pulmonary embolus recommended. DATA REPOSITORY: RADIATION DOSE DELIVERED:
[2022-07-30 08:55] LABS: ALT 24 U/L (16-63); AST 16 U/L (15-37); Albumin 3.5 g/dL (3.4-5.0); Alkaline Phosphatase 91 U/L (46-116); Anion Gap 4.8 mmol/L (3-11); BUN 9 mg/dL (7-18); Bilirubin, Total 0.4 mg/dL (0.2-1.0); CO2 35.2 mmol/L (21.0-32.0); Calcium 8.7 mg/dL (8.5-10.1); Chloride 97 mmol/L (98-107); Estimated GFR 96.37 (mL/min/1.73m2); Glucose 148 mg/dL (74-106); Lipase 22 U/L (16-77); Magnesium 2.4 mg/dL (1.8-2.4); Potassium 3.8 mmol/L (3.5-5.1); Sodium 137 mmol/L (136-145); Total Protein 7.9 g/dL (6.4-8.2)
[2022-07-30 08:59] LABS: Troponin I 74 ng/L (<or=60)
--- NOTE | 2022-07-30 09:00 | DI.CT_ITS ---
Exam(s) CT CHEST PE CTA EXAM: CT CHEST PE CTA CLINICAL HISTORY: SOB, tachycardia. TECHNIQUE: Imaging Protocol: CT angiography of the chest was performed using pulmonary embolus eugene col. Multi planar reconstructions were performed. CONTRAST MATERIAL: Intravenous: Omnipaque 350 Contrast volume: 100 cc COMPARISON: CT CT CHEST PE ABD PELVIS W from 12/23/2020 CR XR PORTABLE CHEST AP from 07/30/2022 FINDINGS: CHEST: PULMONARY ARTERIES: There are no intraluminal filling defects to suggest acute pulmonary emboli. LUNGS: The previously present ground-glass infiltrates mostly resolved. However, there is now a righ t upper lobe hilar-perihilar 4 x 2 cm mass contiguous with adenopathy in the right hilum. Slightly e nlarged lymph nodes also noted in the subcarinal region and right paratracheal region. There also sl ightly enlarged lymph nodes in the opposite-left hilum.. There are also small nodular densities in t he right lower lobe measuring less than 1 cm. There are also small nodular densities in the opposite -left lung measuring up to 8 mm, mostly in the apical posterior segment left upper lobe do not previo usly present. There are no pleural effusions on either side. No new findings in the trachea and christiano nstem bronchi. There is no bronchiectasis.. MEDIASTINUM: Hilar and mediastinal adenopathy as described above. Visualized thyroid unremarkable. CARDIAC: Heart size is upper normal. There is no pericardial effusion.Caliber of the thoracic aorta is within normal limits. There is no significant shift of the interventricular septum. PARTIALLY VISUALIZED UPPERMOST ABDOMEN: No adrenal masses. No splenomegaly. Liver is hypodense impl laura steatosis. OSSEOUS: No significant osseous lesions.No fractures.. IMPRESSION: 1. No evidence of acute pulmonary emboli. No evidence of pulmonary infarction.No pleural effusions. 2. However, although the previously present bilateral ground-glass infiltrates resolved (CT scan 04/2020), there is now a right parahilar mass-infiltrate measuring 4 x 2 cm and there is ipsilateral r ight hilar adenopathy as well as some subcarinal adenopathy. Few slightly enlarged lymph nodes are a lso noted in the right paratracheal mediastinum. Also few slightly enlarged lymph nodes in the oppos ite-left hilum. 3. There are both tree in bud infiltrates in the right lung as well as small right lower lobe nodular densities and there are few nodular densities in the left upper lobe. Largest of these nodules jamel ures 8 mm. 4. Although the above findings may be related to infectious process, there is a significant possibil ity of malignancy related to the right parahilar mass in this patient who also significant intrathora cic adenopathy. Called by myself to ER provider. RADIATION DOSE DELIVERED: 660.15mGy.cm Total DLP DATA REPOSITORY: All CT scans at this facility are submitted to the National Radiology Data Registry (NRDR) Dose Index Registry (DIR) with the [employer] (ACR). RADIATION OPTIMIZATION: All CT scans at this facility use at least one of these dose optimization te chniques: automated exposure control; mA and/or kV adjustment per patient size (includes targeted exa ms where dose is matched to clinical indication); or iterative reconstruction.
[2022-07-30] MEDS: Normal Saline - Diluent 50 ML VIAL IJ (09:47)
[2022-07-30] MEDS: Omnipaque 350 MG/ML 500 ML BTL-Imaging package IJ (09:48)
[2022-07-30] MEDS: Normal Saline Flush 10 ML SYR IVP (09:48)
[2022-07-30] MEDS: MAGNESIUM SULFATE 2 GM/50 ML BAG IVPB (10:29)
[2022-07-30 11:54] LABS: Troponin I 53 ng/L (<or=60)
[2022-07-30 12:06] LABS: Bilirubin Negative (Negative); Blood Negative (Negative); Clarity Clear (Clear); Glucose Negative (Negative); Ketones Negative (Negative); Leukocyte Esterase Negative (Negative); Nitrite Negative (Negative); Urobilinogen 0.2 mg/dL (Up to 0.2); pH 6.5 (5-8)
[2022-07-30 12:29] LABS: Source Nasal/Nares
[2022-07-30 12:34] LABS: pH (Venous) 7.32 (7.31-7.41)
[2022-07-30 12:35] LABS: BE (Venous) 8 mmol/L (-2-3); HCO3 (Venous) 34 mmol/L (23-28); O2 Sat (Venous) 69 %; TCO2 (Venous) 36 mmol/L (24-29)
[2022-07-30 12:36] LABS: pCO2 (Venous) 65 mmHg (41-51)
[2022-07-30 12:37] LABS: pO2 (Venous) 40 mmHg
[2022-07-30] MEDS: AZITHROMYCIN 500 MG in Normal Saline 250 ML 250 MG IVPB (12:51)
--- NOTE | 2022-07-30 13:12 | W.PULMCON ---
General Date Of Service Date of service: 07/30/22 Time of Service: 13:12 Reason for Consult: Lung mass Assessment and Plan Assessment and plan (1) Asthma exacerbation: Status: Acute (2) Idiopathic thrombocytopenic purpura (ITP): (3) Pneumonia: Status: Acute (4) Tobacco abuse: Status: Chronic (5) IV drug abuse: Status: Chronic (6) Respiratory failure with hypoxia: Status: Acute (7) Lung mass: Status: Acute Assessment and plan: This is a 42 yo being admitted for asthma exacerbation (possibly COPD overlap) and pneumonia. The perihilar mass does appear more infectious in nature, but I am concerned about the very pronounced chest lymphadenopathy as well as a nodule present in the same area in 2020. I would recommend treating this as a pneumonia. He is allergic to penicillins so would opt for Levaquin (QTc is ok today) for 7 days[address] I will also place an order for a follow up CT in 6 weeks time and will see him as an outpatient after this scan. Given his persistent chest LAD, I would also recommend a flow cytometry to assess for possible lymphoma. He does not have any spirometry in our system, so I am unclear of the COPD diagnosis. He is certainly wheezing and has been treated for COPD exacerbations in the past. His COPD is a presumptive diagnosis, that may or not be present in addition to asthma. Asthma Exacerbation, presumptive COPD - recommend prednisone 40mg for 5 days, 30mg for 3 days, 20mg for 3 days, 10mg for 3 days, 5mg for 3 days - start Symbicort 160-4.5, 2 puff bid - discharge with this - albuterol prn - discharge with this Pneumonia - Levaquin for 7 days - Mucinex and airways clearance - sputum culture Lung mass with LAD - repeat chest CT in 6 weeks - will will follow as an outpatient - flow cytometry Hypoxic respiratory failure - pneumonia, exacerbation and possibly hypoventilation from oversedation - supplemental O2 for sats >90% History of Present Illness Narrative: This is a 42 yo with self reported COPD, ITP, on methadone and a 24 pack year smoking history (current 2 ppd, self rolled) presented to the ED for dyspnea. He was found to be hypoxic with wheezing. He had a chest CT which finds a 4cm parahilar mass on the right with mediastinal and hilar LAD, in addition to BELLO nodules and bilateral tree in bud infiltrates. He tells me that he had been feeling ill for a few days prior to presentation. He endorses shortness of breath, vomiting, and productive cough (more than baseline). On my review of his chest CT, the right mass does have inflammatory/infectious properties. He has had prior images (12/2020) which was significant for a RML pneumonia with nodular appearance of the right parahilar region as well. In both the CT from [address] scan, there is significant mediastinal and hilar LAD. He is receiving treatment for a COPD exacerbation and is on supplemental O2 at the moment. The plan is for hospital admission to treat a COPD exacerbation and pneumonia. With regard to the COPD diagnosis, he does not have spirometry in our system and he does not have emphysema on his chest imaging. No inhalers are listed as home medications. Review of Systems All systems reviewed & are unremarkable except as noted in HPI and below PFSH All Active Problems (Updated 07/30/22 @ 13:53 by Franchesca Phillips MD) Lung mass (Acute) Respiratory failure with hypoxia (Acute) Pneumonia (Acute) Asthma exacerbation (Acute) Headache (Acute) Nausea & vomiting (Acute) COPD exacerbation (Acute) Abdominal pain (Acute) Shortness of breath (Acute) Acute exacerbation of chronic obstructive pulmonary disease (COPD) (Acute) Polysubstance (excluding opioids) dependence (Acute) Drug overdose (Acute) Elevated troponin I level (Acute) Polysubstance overdose (Acute) Unresponsive episode (Acute) Elevated troponin (Acute) NSTEMI (non-ST elevated myocardial infarction) (Acute) Rhabdomyolysis (Acute) Discharge planning issues (Acute) Open wnd wrist-complic (Acute) Tobacco abuse (Chronic) Bipolar disorder (Chronic) IV drug abuse (Chronic) Methamphetamine abuse (Chronic) DVT prophylaxis (Acute) Discharge planning issues (Acute) Abscess or cellulitis of wrist (Acute) Medical History (Updated 07/30/22 @ 13:53 by Franchesca Phillips MD) Abscess of left upper extremity Bipolar disorder Idiopathic thrombocytopenic purpura (ITP) IV drug user Polysubstance abuse Schizoaffective disorder, chronic condition Patient is not sure which schizo disorder he has Surgical History History of repair of anterior cruciate ligament of right knee Status post incision and drainage Surgical complication involving left eye Family History Other Diabetes Heart disease Social History Smoking/Tobacco Use Status: Current every day Tobacco Type: cigarettes Smoking packs per day: 2 Smoking cigarettes per day: 40.0 Years smoked: 10 Smoking pack-years: 20.00 Counseling given: provider counseling, support medications and counseling >3 minutes Smoking risk assessment performed?: Yes Alcohol Intake: former Drug use: Never Substance use type: crack/cocaine and IV drugs Counseling given: Yes Counseling provided: provider counseling Details: methadone Do you feel safe at home: Yes Do you feel safe in your relationship?: Yes Visit Medication and Allergies Active Medications Generic Name Dose Route Start Last Admin Trade Name Freq PRN Reason Stop Dose Admin Acetaminophen 0 mg 07/30/22 12:58 Acetaminophen 325 Mg Tab PO Q4H PRN PRN Al Hydrox/Mg Hydrox/Simethicone 30 ml 07/30/22 12:58 Mylanta Suspension 30 Ml Cup PO Q2H PRN PRN Albuterol Sulfate 2.5 mg 07/30/22 12:53 Albuterol 2.5 Mg/3 Ml Inh Soln Vial UPD Q2H PRN PRN Albuterol/Ipratropium 3 ml 07/30/22 13:00 Albuterol/Ipratropium 3 Ml Upd Vial UPD Q6H ROSALEE Atorvastatin Calcium 10 mg 07/30/22 14:00 Atorvastatin 10 Mg Tab PO QHS ROSALEE Dimethicone/Zinc Oxide 0 gm 07/30/22 12:48 Denis Protect Cream 142 Gm Tube TP PRN PRN Docusate Sodium 100 mg 07/30/22 12:58 Docusate Sodium 100 Mg Cap PO TID PRN PRN Enoxaparin Sodium 40 mg 07/30/22 13:00 Enoxaparin 40 Mg/0.4 Ml Syr SC Q24H ROSALEE Guaifenesin 600 mg 07/30/22 20:00 Guaifenesin 600 Mg Tabcr PO BID ROSALEE Sodium Chloride 500 mls @ 0 mls/hr 07/30/22 12:53 Saline 500ml Bag IV PRN PRN As Directed Levofloxacin 750 mg in 150 mls @ 100 mls/hr 07/30/22 13:15 Levaquin Premixed Bag IVPB Q24H [facility] [place] Protocol IV Miscellaneous Supplies 1 each 07/30/22 13:00 Iv Access IV DIRECTED [facility] [place] Iohexol 500 ml 07/30/22 10:00 07/30/22 09:48 Omnipaque 350 Mg/Ml 500 Ml Btl-Imaging Package IJ 08/29/22 23:59 100 ml DIRECTED [facility] [place] Administration Magnesium Hydroxide 30 ml 07/30/22 12:58 Milk Of Magnesia 30 Ml Cup PO DAILY PRN PRN Nicotine 12 cartridge 07/30/22 13:04 Nicotine 10 Mg/Cartridge 12 Cart/Pkg IH Q2H PRN PRN Non-Formulary Medication 75 mg 07/30/22 14:00 Pregabalin PO TID [facility] [place] Non-Formulary Medication 4 mg 07/30/22 20:00 Risperidone PO BID [facility] [place] Pantoprazole Sodium 20 mg 07/31/22 07:30 Pantoprazole 20 Mg Tabcr PO DAILY@0730 [facility] [place] Prednisone 40 mg 07/31/22 08:30 Prednisone 20 Mg Tab PO DAILY [facility] [place] Sodium Chloride 50 ml 07/30/22 10:00 07/30/22 09:47 Normal Saline - Diluent 50 Ml Vial IJ 50 ml .FOR DI USE [facility]ALEE Administration Sodium Chloride 0 ml 07/30/22 09:48 07/30/22 09:48 Normal Saline Flush 10 Ml Syr IVP 10 ml PRN PRN Administration Sodium Chloride 0 ml 07/30/22 12:53 Normal Saline Flush 10 Ml Syr IVP PRN PRN Allergies amoxicillin Allergy (Severe, Unverified 07/30/22 07:09) Anaphylaxsis Penicillins Allergy (Severe, Unverified 07/30/22 07:09) Anaphylaxsis shrimp Allergy (Severe, Unverified 07/30/22 07:09) Anaphylaxsis Sulfa (Sulfonamide Antibiotics) Allergy (Unverified 07/30/22 07:09) aspirin Adverse Reaction (Mild, Unverified 07/30/22 07:09) Exam Narrative Exam Narrative: Gen: NAD, normal respiratory effort, obese HENT: Pupils pinpoint and non reactive Chest: No respiratory distress, normal appearance of chest, bilateral and diffuse expiratory wheezing Heart: regular rate and rhythym, no murmurs, rubs or gallops Abdomen: Non-distended, soft, non tender Extremities: No clubbing, edema, cyanosis, rashes Neuro: AAOx3 , non focal Psych: cooperative, appropriate mental affect Results Last Vital Signs Pulse 86 07/30/22 10:31 Resp 22 07/30/22 10:11 BP 137/84 07/30/22 10:31 Pulse Ox 96 07/30/22 10:31 Labs 07/30/22 08:04 07/30/22 08:04 Labs: Laboratory Results - last 24 hr 07/30/22 07/30/22 07/30/22 08:04 08:04 08:04 WBC 16.97 H RBC 5.01 Hgb 14.4 Hct 44.0 MCV 88 MCH 28.7 MCHC 32.7 RDW 12.6 Plt Count 253 MPV 9.1 Immature Gran % 0.5 Neutrophils % 86.3 Lymphocytes % 6.5 Monocytes % 6.2 Eosinophils % 0.1 Basophils % 0.4 Nucleated RBC % 0.0 Absolute Neutrophils 14.65 H Absolute Lymphocytes 1.10 L Absolute Monocytes 1.05 H Absolute Eosinophils 0.02 Absolute Basophils 0.07 VBG pH VBG pCO2 VBG pO2 VBG HCO3 VBG Total CO2 VBG O2 Saturation VBG Base Excess VBG Lactate Sodium 137 Potassium 3.8 Chloride 97 L Carbon Dioxide 35.2 H Anion Gap 4.8 BUN 9 Creatinine 1.0 Est GFR (CKD-EPI 2020) 96.37 Glucose 148 H Calcium 8.7 Magnesium 2.4 Total Bilirubin 0.4 AST 16 ALT 24 Alkaline Phosphatase 91 Troponin I 74 H* Total Protein 7.9 Albumin 3.5 Lipase 22 Cancelled Urine Color Urine Clarity Urine pH Ur Specific [place] Urine Protein Urine Ketones Urine Blood Urine Nitrite Urine Bilirubin Urine Urobilinogen Ur Leukocyte Esterase Urine Glucose COVID-19 Source 07/30/22 07/30/22 07/30/22 09:45 11:07 11:57 WBC RBC Hgb Hct MCV MCH MCHC RDW Plt Count MPV Immature Gran % Neutrophils % Lymphocytes % Monocytes % Eosinophils % Basophils % Nucleated RBC % Absolute Neutrophils Absolute Lymphocytes Absolute Monocytes Absolute Eosinophils Absolute Basophils VBG pH VBG pCO2 VBG pO2 VBG HCO3 VBG Total CO2 VBG O2 Saturation VBG Base Excess VBG Lactate 1.0 Sodium Potassium Chloride Carbon Dioxide Anion Gap BUN Creatinine Est GFR (CKD-EPI 2020) Glucose Calcium Magnesium Total Bilirubin AST ALT Alkaline Phosphatase Troponin I 53 Total Protein Albumin Lipase Urine Color Yellow Urine Clarity Clear Urine pH 6.5 Ur Specific [place] 1.010 Urine Protein Negative Urine Ketones Negative Urine Blood Negative Urine Nitrite Negative Urine Bilirubin Negative Urine Urobilinogen 0.2 Ur Leukocyte Esterase Negative Urine Glucose Negative COVID-19 Source 07/30/22 07/30/22 12:26 12:26 WBC RBC Hgb Hct MCV MCH MCHC RDW Plt Count MPV Immature Gran % Neutrophils % Lymphocytes % Monocytes % Eosinophils % Basophils % Nucleated RBC % Absolute Neutrophils Absolute Lymphocytes Absolute Monocytes Absolute Eosinophils Absolute Basophils VBG pH 7.32 VBG pCO2 65 H* VBG pO2 40 VBG HCO3 34 H VBG Total CO2 36 H VBG O2 Saturation 69 VBG Base Excess 8 H VBG Lactate Sodium Potassium Chloride Carbon Dioxide Anion Gap BUN Creatinine Est GFR (CKD-EPI 2020) Glucose Calcium Magnesium Total Bilirubin AST ALT Alkaline Phosphatase Troponin I Total Protein Albumin Lipase Urine Color Urine Clarity Urine pH Ur Specific [place] Urine Protein Urine Ketones Urine Blood Urine Nitrite Urine Bilirubin Urine Urobilinogen Ur Leukocyte Esterase Urine Glucose COVID-19 Source Nasal/Nares
[2022-07-30 13:14] LABS: COVID-19 PCR Negative (Negative)
[2022-07-30 14:05] LABS: *AMPHETAMINES SCREEN URINE Negative (Negative); *BARBITURATES SCREEN URINE Negative (Negative); *BENZODIAZEPINES SCREEN URINE Negative (Negative); Cannabinoids THC Positive (Negative); Cocaine Screen,Urine Positive (Negative); METHADONE URINE SCREEN Positive (Negative); OPIATES URINE SCREEN Negative (Negative)
[2022-07-30 14:08] LABS: Tricyclic Antidepressants Negative (Negative)
[2022-07-30 14:43] LABS: Lab Add On Test DONE
[2022-07-30 15:14] LABS: C-Reactive Protein 21.99 mg/dL (0.0-0.3)
[2022-07-30 15:29] LABS: Procalcitonin < 0.1 ng/mL
[2022-07-30] MEDS: Enoxaparin 40 MG/0.4 ML SYR SC (16:28)
[2022-07-30] MEDS: levoFLOXacin 750 MG/150 ML BAG 100 MG IVPB (16:40)
--- NOTE | 2022-07-30 17:19 | HPE_ITS ---
Date of service: 07/30/22 Time of Service: 17:19 Assessment and Plan Assessment and plan (1) Respiratory failure with hypoxia: Status: Acute Assessment and plan: Multifactorial - possibly due to an aspiration event during an episode of somnolence post methadone dose vs respiratory depression from methadone + asthma/COPD exacerbation + pneumonia and a question of lung mass. Will treat with antibiotics (levofloxacin empirically), steroids (both systemic and inhaled), scheduled + prn nebs, mucolytics. Encourage pulmonary toilet. Obtain legionella/strep urine antigens, sputum for culture and for mycoplasma PCR. Will also obtain flow cytometry. Appreciate pulmonology recommendations. Wean O2 as tolerated. (2) Pneumonia: Status: Acute Assessment and plan: As above. Will also check HIV. (3) Asthma exacerbation: Status: Acute Assessment and plan: As above (4) COPD exacerbation: Status: Acute Assessment and plan: As above (5) Lung mass: Status: Suspected Assessment and plan: As above Suspected. May be infectious in origin. Will likely require reimaging as an outpatient in 6 weeks. (6) Nausea & vomiting: Status: Acute Assessment and plan: Possibly due to sx of withdrawal or due to acute illness or, most likely, constipation. Start on PPI and will provide prn antiemetics. Schedule a bowel regimen. (7) Polysubstance (excluding opioids) dependence: Status: Chronic Assessment and plan: Will need to touch base with [facility] re excessive somnolence post methadone administration prior to administering the next dose. Check HIV and hepatitis panel. (8) Elevated troponin: Status: Acute Assessment and plan: In setting of hypoxia and acute illness. I do not suspect true ACS. Additionally, in the past the patient had an elevation of his troponin in setting of rhabdomyolysis. Will check CPK. (9) DVT prophylaxis: Status: Acute Assessment and plan: Sc enoxaparin (10) Discharge planning issues: Status: Acute Assessment and plan: Full code Discussed with Dr Phillips History of Present Illness History of Present Illness Chief Complaint: Cough, vomiting, somnolence Narrative: Mr Jackson is a 42 year old male with PMHx of opioid and polysubstance abuse on methadone through [facility] as well as h/o asthma and possible COPD overlap, ITP, elevated troponin in setting of rhabdomyolysis in the past, not felt to be due to ACS, who was brought to [facility] ED today w/ n/v. The patient stated that he started vomiting last night - no blood - and denied abdominal pain. His last BM was today, but prior to this 4 days ago. He had presented after getting his morning methadone and was found to be hypoxic to 88% on RA requiring 5L of O2 by NC to saturate in the 90s. He was also diaphoretic and somnolent, however, refusing narcan. He does report having a cough productive of white sputum for a week, denying fevers, chills, endorsing a sore throat a few days ago. His ER workup revealed a leucocytosis of 16.97, a VBG pH of 7.32 with pCO2 of 65, and a CXR with a question of a R perihilar infiltrate. CTA of the chest was obtained based on radiology recommendations and revealed No PE or pulmonary infarction, but a new mass-like infiltrate measuring 4x2 cm with ipsilateral right hilar, subcarinal, and right paratracheal mediastinal adenopathy. There were also some lymphone nodes seen in the left hilum. There was evidence of tree in bud infiltrates in RLL an d BELLO. Infection vs malignancy were suspected. He was COVID-negative. The patient was treated with azithromycin in the ED. Hospitalist admission was requested. The case was discussed with Dr Phillips who was concerned for an infectious etiology. Levofloxacin was recommended based on patient's reported anaphylaxis to penicillins. The patient did have a very mildly elevated troponin in setting of hypoxia (74- >53) without reports of chest pain or evidence of ischemia on EKG. Review of Systems All systems reviewed & are unremarkable except as noted in HPI and below PFSH All Active Problems (Updated 07/30/22 @ 17:40 by Deidre Peralta MD) Respiratory failure with hypoxia (Acute) Pneumonia (Acute) Asthma exacerbation (Acute) Headache (Acute) Nausea & vomiting (Acute) COPD exacerbation (Acute) Abdominal pain (Acute) Shortness of breath (Acute) Acute exacerbation of chronic obstructive pulmonary disease (COPD) (Acute) Polysubstance (excluding opioids) dependence (Chronic) Drug overdose (Acute) Elevated troponin I level (Acute) Polysubstance overdose (Acute) Unresponsive episode (Acute) Elevated troponin (Acute) NSTEMI (non-ST elevated myocardial infarction) (Acute) Rhabdomyolysis (Acute) Discharge planning issues (Acute) Open wnd wrist-complic (Acute) Tobacco abuse (Chronic) Bipolar disorder (Chronic) IV drug abuse (Chronic) Methamphetamine abuse (Chronic) DVT prophylaxis (Acute) Discharge planning issues (Acute) Abscess or cellulitis of wrist (Acute) Medical History (Updated 07/30/22 @ 17:40 by Deidre Peralta MD) Abscess of left upper extremity Bipolar disorder Idiopathic thrombocytopenic purpura (ITP) IV drug user Polysubstance abuse Schizoaffective disorder, chronic condition Patient is not sure which schizo disorder he has Surgical History History of repair of anterior cruciate ligament of right knee Status post incision and drainage Surgical complication involving left eye Family History Other Diabetes Heart disease Social History Smoking/Tobacco Use Status: Current every day Tobacco Type: cigarettes Smoking packs per day: 2 Smoking cigarettes per day: 40.0 Years smoked: 10 Smoking pack- years: 20.00 Counseling given: provider counseling, support medications and counseling >3 minutes Smoking risk assessment performed?: Yes Alcohol Intake: former Drug use: Never Substance use type: crack/cocaine and IV drugs Counseling given: Yes Counseling provided: provider counseling Details: methadone Do you feel safe at home: Yes Do you feel safe in your relationship?: Yes Meds Allergies and Home Medications Allergies Allergy/AdvReac Type Severity Reaction Status Date / Time amoxicillin Allergy Severe Anaphylaxsi Unverified 07/30/22 07:09 s Penicillins Allergy Severe Anaphylaxsi Unverified 07/30/22 07:09 s shrimp Allergy Severe Anaphylaxsi Unverified 07/30/22 07:09 s Sulfa (Sulfonamide Allergy Unverified 07/30/22 07:09 Antibiotics) aspirin AdvReac Mild Unverified 07/30/22 07:09 Home Medications Medication Instructions Recorded Confirmed Type methadone 10 mg/mL oral concentrate 110 mg PO DAILY 04/02/20 04/13/22 History pregabalin 75 mg capsule 75 mg PO TID 04/02/20 07/30/22 History risperidone 4 mg tablet 4 mg PO BID 04/02/20 07/30/22 History atorvastatin 10 mg tablet 10 mg PO QHS 07/30/22 07/30/22 History Exam Narrative Exam Narrative: General: Pleasant obese male who is very alert and appropriately answering questions/following commands, A&Ox3, NAD Neurological: A&Ox3, no focal deficits except for slight disconjugate gaze/strabismus Psychiatric: Appropriate speech pattern/content Skin: Visible skin intact HEENT: Atraumatic, normocephalic, EOMI, dry MM, clear oropharynx, no submandibular or cervical lymphadenopathy, no goiter or JVD Cardiovascular: RRR, no m/r/g Lungs: Expiratory wheezing B Gastrointestinal: soft, nontender, nondistended Genitourinary: deferred Extremities: no edema BLEs, 1+ pedal pulses B Results Imaging Additional studies: CXR: Possible right parahilar infiltrate.? Asymmetry in the density of the [place] thoraces.? Patient does not appear rotated.? Correlation with any clinical symptomology of pulmonary embolus recommended.? CTA chest: 1. No evidence of acute pulmonary emboli.? No evidence of pulmonary infarction.No pleural effusions. 2. However, although the previously present bilateral ground-glass infiltrates resolved (CT scan 12/23/2020), there is now a right parahilar mass-infiltrate measuring 4 x 2 cm and there is ipsilateral right hilar adenopathy as well as some subcarinal adenopathy.? Few slightly enlarged lymph nodes are also noted in the right paratracheal mediastinum.? Also few slightly enlarged lymph nodes in the opposite-left hilum. 3. There are both tree in bud infiltrates in the right lung as well as small right lower lobe nodular densities and there are few nodular densities in the left upper lobe.? Largest of these nodules measures 8 mm. 4.? Although the above findings may be related to infectious process, there is a significant possibility of malignancy related to the right parahilar mass in this patient who also significant intrathoracic adenopathy. EKG: ST, HR 97, no acute ischemia Labs 07/30/22 08:04 07/30/22 08:04 Labs: Laboratory Results - last 24 hr 07/30/22 07/30/22 07/30/22 08:04 08:04 08:04 WBC 16.97 H RBC 5.01 Hgb 14.4 Hct 44.0 MCV 88 MCH 28.7 MCHC 32.7 RDW 12.6 Plt Count 253 MPV 9.1 Immature Gran % 0.5 Neutrophils % 86.3 Lymphocytes % 6.5 Monocytes % 6.2 Eosinophils % 0.1 Basophils % 0.4 Nucleated RBC % 0.0 Absolute Neutrophils 14.65 H Absolute Lymphocytes 1.10 L Absolute Monocytes 1.05 H Absolute Eosinophils 0.02 Absolute Basophils 0.07 VBG pH VBG pCO2 VBG pO2 VBG HCO3 VBG Total CO2 VBG O2 Saturation VBG Base Excess VBG Lactate Sodium 137 Potassium 3.8 Chloride 97 L Carbon Dioxide 35.2 H Anion Gap 4.8 BUN 9 Creatinine 1.0 Est GFR (CKD-EPI 2020) 96.37 Glucose 148 H Calcium 8.7 Magnesium 2.4 Total Bilirubin 0.4 AST 16 ALT 24 Alkaline Phosphatase 91 Troponin I 74 H* C-Reactive Protein Total Protein 7.9 Albumin 3.5 Lipase 22 Cancelled Procalcitonin Urine Color Urine Clarity Urine pH Ur Specific [place] Urine Protein Urine Ketones Urine Blood Urine Nitrite Urine Bilirubin Urine Urobilinogen Ur Leukocyte Esterase Urine Glucose Urine Opiates Screen Urine Methadone Screen Ur Barbiturates Screen Ur Tricyclics Screen Ur Amphetamines Screen U Benzodiazepines Scrn Urine Cocaine Screen Ur THC Screen COVID-19 Source SARS-CoV-2 (PCR) Add-On Test Request 07/30/22 07/30/22 07/30/22 09:45 11:07 11:57 WBC RBC Hgb Hct MCV MCH MCHC RDW Plt Count MPV Immature Gran % Neutrophils % Lymphocytes % Monocytes % Eosinophils % Basophils % Nucleated RBC % Absolute Neutrophils Absolute Lymphocytes Absolute Monocytes Absolute Eosinophils Absolute Basophils VBG pH VBG pCO2 VBG pO2 VBG HCO3 VBG Total CO2 VBG O2 Saturation VBG Base Excess VBG Lactate 1.0 Sodium Potassium Chloride Carbon Dioxide Anion Gap BUN Creatinine Est GFR (CKD-EPI 2020) Glucose Calcium Magnesium Total Bilirubin AST ALT Alkaline Phosphatase Troponin I 53 C-Reactive Protein Total Protein Albumin Lipase Procalcitonin Urine Color Yellow Urine Clarity Clear Urine pH 6.5 Ur Specific [place] 1.010 Urine Protein Negative Urine Ketones Negative Urine Blood Negative Urine Nitrite Negative Urine Bilirubin Negative Urine Urobilinogen 0.2 Ur Leukocyte Esterase Negative Urine Glucose Negative Urine Opiates Screen Urine Methadone Screen Ur Barbiturates Screen Ur Tricyclics Screen Ur Amphetamines Screen U Benzodiazepines Scrn Urine Cocaine Screen Ur THC Screen COVID-19 Source SARS-CoV-2 (PCR) Add-On Test Request 07/30/22 07/30/22 07/30/22 12:26 12:26 13:30 WBC RBC Hgb Hct MCV MCH MCHC RDW Plt Count MPV Immature Gran % Neutrophils % Lymphocytes % Monocytes % Eosinophils % Basophils % Nucleated RBC % Absolute Neutrophils Absolute Lymphocytes Absolute Monocytes Absolute Eosinophils Absolute Basophils VBG pH 7.32 VBG pCO2 65 H* VBG pO2 40 VBG HCO3 34 H VBG Total CO2 36 H VBG O2 Saturation 69 VBG Base Excess 8 H VBG Lactate Sodium Potassium Chloride Carbon Dioxide Anion Gap BUN Creatinine Est GFR (CKD-EPI 2020) Glucose Calcium Magnesium Total Bilirubin AST ALT Alkaline Phosphatase Troponin I C-Reactive Protein Total Protein Albumin Lipase Procalcitonin Urine Color Urine Clarity Urine pH Ur Specific [place] Urine Protein Urine Ketones Urine Blood Urine Nitrite Urine Bilirubin Urine Urobilinogen Ur Leukocyte Esterase Urine Glucose Urine Opiates Screen Negative Urine Methadone Screen Positive A Ur Barbiturates Screen Negative Ur Tricyclics Screen Negative Ur Amphetamines Screen Negative U Benzodiazepines Scrn Negative Urine Cocaine Screen Positive A Ur THC Screen Positive A COVID-19 Source Nasal/Nares SARS-CoV-2 (PCR) Negative Add-On Test Request 07/30/22 07/30/22 07/30/22 14:25 14:25 14:25 WBC RBC Hgb Hct MCV MCH MCHC RDW Plt Count MPV Immature Gran % Neutrophils % Lymphocytes % Monocytes % Eosinophils % Basophils % Nucleated RBC % Absolute Neutrophils Absolute Lymphocytes Absolute Monocytes Absolute Eosinophils Absolute Basophils VBG pH VBG pCO2 VBG pO2 VBG HCO3 VBG Total CO2 VBG O2 Saturation VBG Base Excess VBG Lactate Sodium Potassium Chloride Carbon Dioxide Anion Gap BUN Creatinine Est GFR (CKD-EPI 2020) Glucose Calcium Magnesium Total Bilirubin AST ALT Alkaline Phosphatase Troponin I C-Reactive Protein 21.99 H Total Protein Albumin Lipase Procalcitonin < 0.1 Urine Color Urine Clarity Urine pH Ur Specific [place] Urine Protein Urine Ketones Urine Blood Urine Nitrite Urine Bilirubin Urine Urobilinogen Ur Leukocyte Esterase Urine Glucose Urine Opiates Screen Urine Methadone Screen Ur Barbiturates Screen Ur Tricyclics Screen Ur Amphetamines Screen U Benzodiazepines Scrn Urine Cocaine Screen Ur THC Screen COVID-19 Source SARS-CoV-2 (PCR) Add-On Test Request DONE Last Vital Signs Temp 37.1 C 07/30/22 14:15 Pulse 77 05/09/23 15:09 Resp 18 07/30/22 14:15 BP 115/71 07/30/22 14:15 Pulse Ox 90 L 07/30/22 14:15 Time Spent Time spent with Patient: 55-74 minutes Time was spent: preparing to see the patient(eg.review tests), obtaining and/or reviewing separately otained hiistory, ordering medications,tests, procedures, referring, communicating with other health critical care physician assistant, indepentently interpreting results, counseling the patient and care coordination
[2022-07-30 17:34] LABS: Lab Add On Test DONE
[2022-07-30 17:54] LABS: Creatine Kinase 78 U/L (39-308)
[2022-07-30] MEDS: risperiDONE 1 MG TAB 4 MG PO (20:56)
[2022-07-30] MEDS: Docusate Sodium 100 MG CAP PO (20:56)
[2022-07-30] MEDS: guaiFENesin 600 MG TABCR PO (20:56)
[2022-07-30] MEDS: Atorvastatin 10 MG TAB PO (21:05)
[2022-07-30] MEDS: Budesonide/Formoterol 160/4.5 6 GM 60 PUFF INH IH (21:09)
[2022-07-31] VITALS (10 sets, daily range): BP systolic 121–127; BP diastolic 71–75; PULSE 74–112; RESP 4–22; TEMP 36.1–36.8; O2SAT 89–98
[2022-07-31] MEDS: Albuterol/Ipratropium 3 ML UPD VIAL UPD ×3 (03:42→16:20)
[2022-07-31 07:18] LABS: Abs Immature Grans 0.12 10^3/uL (0.0-0.06); Absolute Basophil Count 0.03 10^3/uL (0.0-0.2); Absolute Lymphocyte Count 1.42 10^3/uL (1.2-3.4); Absolute Monocyte Count 1.07 10^3/uL (0.1-0.8); Absolute Neutrophil Count 13.51 10^3/uL (1.2-6.7); Basophils % 0.2; HCT 40.8 % (40.0-50.0); Immature Grans % 0.7; Lymphocytes % 8.8; MCHC 31.9 % (32.0-36.0); MCV 88 fL (80-95); MPV 9.2 fL (8.0-11.0); Monocytes % 6.6; Neutrophils % 83.7; Platelet Count 295 10^3/uL (130-400); RBC 4.64 10^6/uL (4.36-5.78); RDW 12.6 % (11.8-14.1); RDW-SD 40.5 fL; WBC 16.14 10^3/uL (4.4-10.8)
[2022-07-31] MEDS: Docusate Sodium 100 MG CAP PO (07:28)
[2022-07-31] MEDS: Pantoprazole 20 MG TABCR PO (07:28)
[2022-07-31] MEDS: risperiDONE 1 MG TAB 4 MG PO (07:28)
[2022-07-31] MEDS: guaiFENesin 600 MG TABCR PO (07:28)
[2022-07-31] MEDS: predniSONE 20 MG TAB 40 MG PO (07:32)
[2022-07-31 07:33] LABS: Anion Gap 5.4 mmol/L (3-11); BUN 14 mg/dL (7-18); CO2 33.6 mmol/L (21.0-32.0); CREATININE 0.9 mg/dL (0.70-1.30); Calcium 8.8 mg/dL (8.5-10.1); Chloride 98 mmol/L (98-107); Estimated GFR 109.36 (mL/min/1.73m2); Glucose 147 mg/dL (74-106); Magnesium 2.5 mg/dL (1.8-2.4); Potassium 3.7 mmol/L (3.5-5.1); Sodium 137 mmol/L (136-145)
[2022-07-31] MEDS: Budesonide/Formoterol 160/4.5 6 GM 60 PUFF INH IH (09:07)
[2022-07-31] MEDS: Methadone Liquid 10 MG/ML 100 MG PO (09:10)
[2022-07-31 10:10] LABS: HIV-1/2 Ag & Ab Screen Negative (Negative)
[2022-07-31 10:24] LABS: HBs Antibody, Qual Negative (See Note); HBs Antibody, Quant <3.1 mIU/mL (See Note); Hepatitis B Core Antibody Negative (Negative); Hepatitis B surface Ag Negative (Negative); Hepatitis C Ab w Rflx HCV PCR Negative (Negative)
[2022-07-31 13:44] LABS: Leukemia/Lymphoma by FC (Blood (See below)
--- NOTE | 2022-07-31 13:52 | DSE_ITS ---
Date of service: 07/31/22 Time of Service: 13:52 DS: Diagnosis Discharge Diagnosis (1) Respiratory failure with hypoxia: Status: Resolved (2) Pneumonia: Status: Acute (3) Asthma exacerbation: Status: Acute (4) COPD exacerbation: Status: Acute (5) Lung mass: Status: Suspected (6) Nausea & vomiting: Status: Resolved (7) Polysubstance (excluding opioids) dependence: Status: Chronic (8) Elevated troponin: Status: Acute (9) Constipation: Status: Acute (10) Methadone maintenance therapy patient: Status: Acute Discharge Plan Disposition Patient Disposition: Home Condition: Improving Discharge Details Reason For Visit: Pneumonia,Acute Respitory Failure,Encephlopathy,Makenna Admit Date/Time: 07/30/22 12:52 Admit Provider: Deidre Peralta Attending Provider: Deidre Peralta Primary Care Provider: [facility] Hospital Course: Mr Manuel Long is a 42 year old male with PMHx of asthma/possible COPD overlap, ongoing tobacco abuse, opioid dependence on methadone therapy via [facility], h/o elevated troponin on prior admission in setting of rhabdomyolysis, who was a patient on [facility] hospitalist service from 07/30/22 until 07/31/22 for acute hypoxic respiratory failure due to asthma exacerbation/possible COPD exacerbation due to a pneumonia with a question of a possible lung mass. The patient had initially presented to the ER reporting n/v the night before and a productive cough x 1 week. He did receive methadone in the morning and, upon presentation to the ED, was found to be excessively somnolent and was requiring 5 L of O2 by NC. The patient had refused narcan. His mental status did improve while in the ER and his VBG did not show evidence of CO2 retention. He was evaluated by Dr Phillips who felt that the mass-like infiltrate did have an inflammatory appearance and recommended treatment with empiric levofloxacin x 7 days as well as prednisone taper, and initiation of symbicort and albuterol inhalers. With these therapies in addition to mucolytics and pulmonary toilet, the patient was able to get off of all oxygen and passed an ambulatory oximetry test on room air unexpectedly early. His blood cultures as well as his respiratory culture have no growth to date. We did discuss his excessive somnolence with [facility], and Dr Archibald recommended a decrease in his methadone dose to 100 mg, which he will continue to get through [facility] (not receiving a new prescription from [facility] on discharge). He is being discharged home today to complete 5 more days of antibiotics and a steroid taper as prescribed. He is being asked to stop smoking and is being given nicotine patches. He should follow up with Dr Phillips and will need a repeat CT scan in 6 weeks. His HIV test is negative. Flow cytometry is pending at the time of discharge. Care for patient in addition to completion of his discharge summary on day of discharge took 45 minutes. Home Meds and New Rx's Prescriptions: New budesonide-formoterol [Symbicort] 160-4.5 mcg/actuation Hfa Aerosol Inhaler 2 puff inhalation BID Qty: 10.2 0RF docusate sodium [Colace] 100 mg Capsule 100 mg PO BID Qty: 60 0RF guaifenesin [Mucus Relief ER] 600 mg Tablet Extended Release 12hr 600 mg PO BID Qty: 30 0RF omeprazole 20 mg capsule,delayed release(DR/EC) 20 mg PO DAILY Qty: 30 0RF prednisone 10 mg tablet See Rx Instructions .ROUTE .COMPLEX Qty: 32 0RF Rx Instructions: 40 mg PO daily x 3 days, then 30 mg PO daily x 3 days, then 20 mg PO daily x 3 days, then 10 mg PO daily x 3 days, then 5 mg PO daily x 3 days, then stop. levofloxacin 750 mg tablet 750 mg PO DAILY Qty: 5 0RF Rx Instructions: next dose tomorrow, 08/01/22. albuterol sulfate 90 mcg/actuation HFA aerosol inhaler 2 puff inhalation Q4H PRN PRN (Reason: shortness of breath or wheezing) Qty: 8.5 0RF methadone [Methadose] 10 mg/mL Concentrate 100 mg PO DAILY Qty: 0 0RF nicotine 21 mg/24 hr patch 24 hour 1 patch transdermal Q24H Qty: 28 0RF Continued risperidone 4 mg tablet 4 mg PO BID Patient Comments: TAKE 1 TABLET BY MOUTH TWICE DAILY pregabalin 75 mg capsule 75 mg PO TID Patient Comments: TK ONE C PO TID atorvastatin 10 mg tablet 10 mg PO QHS Discontinued methadone 10 mg/mL Concentrate 110 mg PO DAILY Discharge Instructions Instructions: Albuterol (By mouth), Prednisone (By mouth), Levofloxacin (By mouth), Budesonide/Formoterol (By breathing), Asthma (DC), How to Stop Smoking (DC), Bacterial Pneumonia (DC), Bronchospasm (DC) Additional Instructions: Finish your antibiotics (levofloxacin) and steroids (prednisone) as prescribed. Return to the hospital with any fever, bleeding, chest pain, or shortness of breath. You must stop smoking! Follow up with [facility], your PCP, and with Dr Phillips (pulmonology). Stand Alone Forms: Nursing Discharge Form Referrals: Ivone Ruano [Primary Care Provider] - 08/14/22 1:00 pm Franchesca Phillips MD [ [facility] STAFF PHYSICIAN] - Activity:: Activity as Tolerated Equipment/Supplies:: No Equipment Needed Diet:: As Tolerated Discharge Orders Discharge Orders: Discharge Order (Routine); Ordered 07/31/22 Ordered By: Deidre Peralta DS: Summary Time Spent with Patient providing and/or coordinating discharge services: Greater than 30 minutes Status at Discharge Functional status at discharge: independent ambulation Overall status at discharge: patient is progressing back to baseline Mental Status: mental status grossly normal Speech and Movement: speech and movement normal Mood: congruent mood Affect: normal affect Exam Narrative Exam Narrative: General: Pleasant obese male who is very alert and appropriately answering questions/following commands, A&Ox3, NAD HEENT: EOMI, MMM Cardiovascular: RRR, no m/r/g Lungs: Expiratory wheezing B, improved Gastrointestinal: soft, nontender, nondistended Extremities: no edema BLEs, 1+ pedal pulses B Psych Mental Status: mental status grossly normal Speech and Movement: speech and movement normal Mood: congruent mood Affect: normal affect DS: Data Vitals/I&O Vitals and I&O: Vital Signs Temperature 36.8 C 07/31/22 11:51 Temperature Source Tympanic 07/31/22 11:51 Pulse 74 07/31/22 11:51 Pulse Rhythm Regular 07/31/22 08:00 Pulse 92 H 07/30/22 13:30 Respiratory Rate 20 07/31/22 11:51 Respiratory Effort Normal, Non-Labored 07/31/22 08:00 Respiratory Depth Normal 07/31/22 08:00 Respiratory Pattern Normal 07/31/22 08:00 Blood Pressure 127/72 07/31/22 11:51 Blood Pressure Mean 79 07/30/22 13:30 Blood Pressure Position Sitting 07/30/22 07:05 Pulse Oximetry 91 L 07/31/22 11:51 Oxygen Delivery Method Room Air 07/31/22 11:51 Oxygen Flow Rate 0 07/31/22 11:51 Pain Level 0 07/31/22 09:10 Intake & Output 07/30/22 07/31/22 07/31/22 23:59 11:59 23:59 Intake Total 610 / 610 560 / 560 Output Total 750 / 750 900 / 900 Balance -140 / -140 -340 / -340 Weight 113.3 kg Intake: IV 310 / 310 160 / 160 Oral 300 / 300 400 / 400 Output: Urine 750 / 750 900 / 900 Other: Urine Color Yellow Yellow Straw Urine Appearance Clear Clear Urine Odor Normal Stool Size Small Moderate Stool Characteristics Hard Formed Brown Hard Brown Voiding Methods Urinal Urinal Data Completed and Pending Completed studies during hospitalization [Text1]: CXR07/30/22: Possible right parahilar infiltrate.? Asymmetry in the density of the [place] thoraces.? Patient does not appear rotated.? Correlation with any clinical symptomology of pulmonary embolus recommended.? CTA chest 07/30/22: 1. No evidence of acute pulmonary emboli.? No evidence of pulmonary infarction.No pleural effusions. 2. However, although the previously present bilateral ground-glass infiltrates resolved (CT scan 12/23/2020), there is now a right parahilar mass-infiltrate measuring 4 x 2 cm and there is ipsilateral right hilar adenopathy as well as some subcarinal adenopathy.? Few slightly enlarged lymph nodes are also noted in the right paratracheal mediastinum.? Also few slightly enlarged lymph nodes in the opposite-left hilum. 3. There are both tree in bud infiltrates in the right lung as well as small right lower lobe nodular densities and there are few nodular densities in the left upper lobe.? Largest of these nodules measures 8 mm. 4.? Although the above findings may be related to infectious process, there is a significant possibility of malignancy related to the right parahilar mass in this patient who also significant intrathoracic adenopathy. Pending studies at discharge: Flow cytometry (leukemia/lymphoma panel) Urine strep Ag Urine Legionella Ag Sputum for mycoplasma Labs on day of discharge: Labs from last 24 hours 07/31/22 07/31/22 07/31/22 10:15 06:43 06:43 WBC 16.14 H RBC 4.64 Hgb 13.0 L Hct 40.8 MCV 88 MCH 28.0 MCHC 31.9 L RDW 12.6 Plt Count 295 MPV 9.2 Immature Gran % 0.7 Neutrophils % 83.7 Lymphocytes % 8.8 Monocytes % 6.6 Eosinophils % 0.0 Basophils % 0.2 Nucleated RBC % 0.0 Absolute Neutrophils 13.51 H Absolute Lymphocytes 1.42 Absolute Monocytes 1.07 H Absolute Eosinophils 0.00 Absolute Basophils 0.03 Sodium 137 Potassium 3.7 Chloride 98 Carbon Dioxide 33.6 H Anion Gap 5.4 BUN 14 Creatinine 0.9 Est GFR (CKD-EPI 2020) 109.36 Glucose 147 H Calcium 8.8 Magnesium 2.5 H Creatine Kinase C-Reactive Protein Procalcitonin Urine Opiates Screen Urine Methadone Screen Urine Fentanyl LCMSMS Pending Urine Fentanyl Interp Pending Ur Norfentanyl LCMSMS Pending Ur Barbiturates Screen Ur Tricyclics Screen Ur Amphetamines Screen U Benzodiazepines Scrn Urine Cocaine Screen Ur THC Screen Lymph/Leukemia Panel Hep Bs Antigen Hep Bs Antibody Hep Bs Antibody, Quant Hep B Core Total Ab Hepatitis C Antibody HIV 1&2 Ag/Ab, 4th Gen Urine Legionella Ag M. pneumoniae Source M. pneumoniae (PCR) Ur Strep pneumoniae Ag Add-On Test Request 07/31/22 07/30/22 07/30/22 03:45 14:25 14:25 WBC RBC Hgb Hct MCV MCH MCHC RDW Plt Count MPV Immature Gran % Neutrophils % Lymphocytes % Monocytes % Eosinophils % Basophils % Nucleated RBC % Absolute Neutrophils Absolute Lymphocytes Absolute Monocytes Absolute Eosinophils Absolute Basophils Sodium Potassium Chloride Carbon Dioxide Anion Gap BUN Creatinine Est GFR (CKD-EPI 2020) Glucose Calcium Magnesium Creatine Kinase 78 C-Reactive Protein Procalcitonin Urine Opiates Screen Urine Methadone Screen Urine Fentanyl LCMSMS Urine Fentanyl Interp Ur Norfentanyl LCMSMS Ur Barbiturates Screen Ur Tricyclics Screen Ur Amphetamines Screen U Benzodiazepines Scrn Urine Cocaine Screen Ur THC Screen Lymph/Leukemia Panel Hep Bs Antigen Hep Bs Antibody Hep Bs Antibody, Quant Hep B Core Total Ab Hepatitis C Antibody HIV 1&2 Ag/Ab, 4th Gen Urine Legionella Ag M. pneumoniae Source Pending M. pneumoniae (PCR) Pending Ur Strep pneumoniae Ag Add-On Test Request DONE 07/30/22 07/30/22 07/30/22 14:25 14:25 14:25 WBC RBC Hgb Hct MCV MCH MCHC RDW Plt Count MPV Immature Gran % Neutrophils % Lymphocytes % Monocytes % Eosinophils % Basophils % Nucleated RBC % Absolute Neutrophils Absolute Lymphocytes Absolute Monocytes Absolute Eosinophils Absolute Basophils Sodium Potassium Chloride Carbon Dioxide Anion Gap BUN Creatinine Est GFR (CKD-EPI 2020) Glucose Calcium Magnesium Creatine Kinase C-Reactive Protein 21.99 H Procalcitonin Urine Opiates Screen Urine Methadone Screen Urine Fentanyl LCMSMS Urine Fentanyl Interp Ur Norfentanyl LCMSMS Ur Barbiturates Screen Ur Tricyclics Screen Ur Amphetamines Screen U Benzodiazepines Scrn Urine Cocaine Screen Ur THC Screen Lymph/Leukemia Panel Hep Bs Antigen Negative Hep Bs Antibody Negative Hep Bs Antibody, Quant <3.1 Hep B Core Total Ab Negative Hepatitis C Antibody Negative HIV 1&2 Ag/Ab, 4th Gen Negative Urine Legionella Ag M. pneumoniae Source M. pneumoniae (PCR) Ur Strep pneumoniae Ag Add-On Test Request 07/30/22 07/30/22 07/30/22 14:25 14:25 14:25 WBC RBC Hgb Hct MCV MCH MCHC RDW Plt Count MPV Immature Gran % Neutrophils % Lymphocytes % Monocytes % Eosinophils % Basophils % Nucleated RBC % Absolute Neutrophils Absolute Lymphocytes Absolute Monocytes Absolute Eosinophils Absolute Basophils Sodium Potassium Chloride Carbon Dioxide Anion Gap BUN Creatinine Est GFR (CKD-EPI 2020) Glucose Calcium Magnesium Creatine Kinase C-Reactive Protein Procalcitonin < 0.1 Urine Opiates Screen Urine Methadone Screen Urine Fentanyl LCMSMS Urine Fentanyl Interp Ur Norfentanyl LCMSMS Ur Barbiturates Screen Ur Tricyclics Screen Ur Amphetamines Screen U Benzodiazepines Scrn Urine Cocaine Screen Ur THC Screen Lymph/Leukemia Panel Pending Hep Bs Antigen Hep Bs Antibody Hep Bs Antibody, Quant Hep B Core Total Ab Hepatitis C Antibody HIV 1&2 Ag/Ab, 4th Gen Urine Legionella Ag M. pneumoniae Source M. pneumoniae (PCR) Ur Strep pneumoniae Ag Add-On Test Request DONE 07/30/22 07/30/22 13:30 11:57 WBC RBC Hgb Hct MCV MCH MCHC RDW Plt Count MPV Immature Gran % Neutrophils % Lymphocytes % Monocytes % Eosinophils % Basophils % Nucleated RBC % Absolute Neutrophils Absolute Lymphocytes Absolute Monocytes Absolute Eosinophils Absolute Basophils Sodium Potassium Chloride Carbon Dioxide Anion Gap BUN Creatinine Est GFR (CKD-EPI 2020) Glucose Calcium Magnesium Creatine Kinase C-Reactive Protein Procalcitonin Urine Opiates Screen Negative Urine Methadone Screen Positive A Urine Fentanyl LCMSMS Urine Fentanyl Interp Ur Norfentanyl LCMSMS Ur Barbiturates Screen Negative Ur Tricyclics Screen Negative Ur Amphetamines Screen Negative U Benzodiazepines Scrn Negative Urine Cocaine Screen Positive A Ur THC Screen Positive A Lymph/Leukemia Panel Hep Bs Antigen Hep Bs Antibody Hep Bs Antibody, Quant Hep B Core Total Ab Hepatitis C Antibody HIV 1&2 Ag/Ab, 4th Gen Urine Legionella Ag Pending M. pneumoniae Source M. pneumoniae (PCR) Ur Strep pneumoniae Ag Pending Add-On Test Request 07/31/22 03:45 Sputum Sputum Culture - Pending Preliminary micro results at discharge 07/30/22 09:52 Blood Culture - Preliminary Blood NO GROWTH 24 HOURS 07/30/22 09:45 Blood Culture - Preliminary Blood NO GROWTH 24 HOURS 07/31/22 03:45 Sputum Culture - Pending Sputum PFSH All Active Problems (Updated 07/31/22 @ 13:54 by Deidre Peralta MD) Methadone maintenance therapy patient (Acute) Constipation (Acute) Pneumonia (Acute) Asthma exacerbation (Acute) Headache (Acute) COPD exacerbation (Acute) Abdominal pain (Acute) Shortness of breath (Acute) Acute exacerbation of chronic obstructive pulmonary disease (COPD) (Acute) Polysubstance (excluding opioids) dependence (Chronic) Drug overdose (Acute) Elevated troponin I level (Acute) Polysubstance overdose (Acute) Unresponsive episode (Acute) Elevated troponin (Acute) NSTEMI (non-ST elevated myocardial infarction) (Acute) Rhabdomyolysis (Acute) Discharge planning issues (Acute) Open wnd wrist-complic (Acute) Tobacco abuse (Chronic) Bipolar disorder (Chronic) IV drug abuse (Chronic) Methamphetamine abuse (Chronic) DVT prophylaxis (Acute) Discharge planning issues (Acute) Abscess or cellulitis of wrist (Acute) Medical History (Updated 07/31/22 @ 13:54 by Deidre Peralta MD) Abscess of left upper extremity Bipolar disorder Idiopathic thrombocytopenic purpura (ITP) IV drug user Polysubstance abuse Schizoaffective disorder, chronic condition Patient is not sure which schizo disorder he has Surgical History History of repair of anterior cruciate ligament of right knee Status post incision and drainage Surgical complication involving left eye Family History Other Diabetes Heart disease Social History Smoking/Tobacco Use Status: Current every day Tobacco Type: cigarettes Smoking packs per day: 2 Smoking cigarettes per day: 40.0 Years smoked: 10 Smoking pack- years: 20.00 Counseling given: provider counseling, support medications and counseling >3 minutes Smoking risk assessment performed?: Yes Alcohol Intake: former Drug use: Never Substance use type: crack/cocaine and IV drugs Counseling given: Yes Counseling provided: provider counseling Details: methadone Do you feel safe at home: Yes Do you feel safe in your relationship?: Yes Time Spent with Patient Time Spent with Patient: 45-69 minutes Time was spent: preparing to see the patient(eg.review tests), obtaining and/or reviewing separately otained hiistory, ordering medications,tests, procedures, referring, communicating with other health patient care associate, indepentently interpreting results, counseling the patient and care coordination
[2022-07-31] MEDS: levoFLOXacin 750 MG/150 ML BAG 100 MG IVPB (14:08)
--- NOTE | 2022-07-31 17:23 | PDOC.CMIN ---
Date of service: 07/31/22 Time of Service: 17:23 Care Management Initial Assmt Initial Assessment REASON FOR HOSPITALIZATION:: Pneumonia, acute respiratory failure PREVIOUS FUNCTIONAL STATUS/SOCIAL/FAMILY SUPPORTS:: Anmol resides in [place], [place] with his , Renetta. He attends [facility] program for MAT of opiate use disorder. He is independent at baseline in the community. CURRENT FUNCTIONAL STATUS:: Anmol was discharged prior to CM meeting with him. Per provider, he was weaned off supplemental O2, and passed an exercise oximetry test today. He was discharged with new medications, which CM contacted the pharmacy regarding his copays. Per Agatha, all of his copays are between $1-$2. CM wrote a last dose letter for [facility] and provided it to his RN to present with his discharge paperwork. Per MD, his methadone dose was decreased due to somnolence, which CM reflected in his last dose letter. CM will continue to follow. ADVANCE DIRECTIVES:: None on file. Has patient been provided with info about the portal/API?: No Did the patient sign up for the portal?: No CODE STATUS:: Full Code INSURANCE COVERAGE / FINANCIAL ISSUES:: [facility] CURRENT HOME/COMMUNITY SERVICES/EQUIPMENT:: [facility] PRIMARY CARE PHYSICIAN:: Ivone Ruano POTENTIAL DISCHARGE NEEDS:: Last dose letter, follow up appointments. PATIENT/FAMILY EDUCATION NEEDS:: Review discharge instructions and limitations, discussion of self care needs including ask me three. ANTICIPATED BARRIERS TO DISCHARGE:: None TRANSPORTATION:: Via private vehicle with family PLAN:: Anmol will discharge home today with new prescriptions. CM provided a last dose letter for [facility] for him to resume care. He will follow up with his PCP and discharge plan of care. CM will continue to follow. PFSH All Active Problems (Updated 07/31/22 @ 13:54 by Deidre Peralta MD) Methadone maintenance therapy patient (Acute) Constipation (Acute) Pneumonia (Acute) Asthma exacerbation (Acute) Headache (Acute) COPD exacerbation (Acute) Abdominal pain (Acute) Shortness of breath (Acute) Acute exacerbation of chronic obstructive pulmonary disease (COPD) (Acute) Polysubstance (excluding opioids) dependence (Chronic) Drug overdose (Acute) Elevated troponin I level (Acute) Polysubstance overdose (Acute) Unresponsive episode (Acute) Elevated troponin (Acute) NSTEMI (non-ST elevated myocardial infarction) (Acute) Rhabdomyolysis (Acute) Discharge planning issues (Acute) Open wnd wrist-complic (Acute) Tobacco abuse (Chronic) Bipolar disorder (Chronic) IV drug abuse (Chronic) Methamphetamine abuse (Chronic) DVT prophylaxis (Acute) Discharge planning issues (Acute) Abscess or cellulitis of wrist (Acute) Medical History (Updated 07/31/22 @ 13:54 by Deidre Peralta MD) Abscess of left upper extremity Bipolar disorder Idiopathic thrombocytopenic purpura (ITP) IV drug user Polysubstance abuse Schizoaffective disorder, chronic condition Patient is not sure which schizo disorder he has Surgical History History of repair of anterior cruciate ligament of right knee Status post incision and drainage Surgical complication involving left eye Family History Other Diabetes Heart disease Social History Smoking/Tobacco Use Status: Current every day Tobacco Type: cigarettes Smoking packs per day: 2 Smoking cigarettes per day: 40.0 Years smoked: 10 Smoking pack-years: 20.00 Counseling given: provider counseling, support medications and counseling >3 minutes Smoking risk assessment performed?: Yes Alcohol Intake: former Drug use: Never Substance use type: crack/cocaine and IV drugs Counseling given: Yes Counseling provided: provider counseling Details: methadone Do you feel safe at home: Yes Do you feel safe in your relationship?: Yes
--- NOTE | 2022-07-31 17:31 | PDOC.CMDIS ---
Date of service: 07/31/22 Time of Service: 17:31 LACE Index Scoring Tool Questions: Length of Stay (in days): 1 Was the patient admitted via the E.D.?: Yes Comorbidities: Previous M.I. and Chronic Pulmonary Disease E.D. Visits: 1 Answers: Total Score: 8 Risk of Readmission: Low Risk Care Management Discharge Plan Reason for Hospitalization: Pneumonia, acute respiratory failure Discharge Plan: Anmol will return home with new medications, no new services. He will be driven home via private vehicle by family. He will follow up with [facility], his PCP and his discharge plan of care. Patient/Family Education Needs: Review discharge instructions and limitations, discussion of self care needs including ask me three.
[2022-07-31 18:21] LABS: Legionella Ag Detection Urine Negative (Negative)
[2022-08-02 15:00] LABS: Streptococcus Pneumoniae Ag, U Negative (Negative)
[2022-08-07 19:00] LABS: Fentanyl Interpretation Negative.; Fentanyl by LC-MS/MS Not Detected; Norfentanyl by LC-MS/MS Not Detected
== END 2022-07-31 17:28 | disposition home or self-care (01) | DRG 193 ==
LOC: ER 13:07 → MS 13:55
PROVIDERS: Admitting Provider Internal Medicine; Emergency Provider Emergency Medicine Emergency Medical Services; PCP Nurse Practitioner; Visit Provider Internal Medicine
DX: J18.9 Pneumonia, unspecified organism (principal); J96.01 Acute respiratory failure with hypoxia; J45.901 Unspecified asthma with (acute) exacerbation; D69.3 Immune thrombocytopenic purpura; F11.20 Opioid dependence, uncomplicated; F17.210 Nicotine dependence, cigarettes, uncomplicated; I25.2 Old myocardial infarction; I45.19 Other right bundle-branch block; F15.10 Other stimulant abuse, uncomplicated; F19.10 Other psychoactive substance abuse, uncomplicated; F25.9 Schizoaffective disorder, unspecified; R74.8 Abnormal levels of other serum enzymes; R59.0 Localized enlarged lymph nodes; R91.1 Solitary pulmonary nodule; K59.00 Constipation, unspecified; R11.2 Nausea with vomiting, unspecified; R40.0 Somnolence
CPT/HCPCS: 36410; 36415; 71275; 80048; 80053; 80307; 82550; 82805; 83690; 84145; 86704; 86706; 86803; 87040; 87340; 87389; 87449; 87635; 88185; 93005; 94618; 94640; 96365; 96366; 96367; 96375; 99285; J1650; 71045; 80354; 81003; 83605; 83735; 84484; 85025; 86140; 87070; 87205; 87581; 87899; 88184; 88189; 93010; 94664; 94667; 94668; 94760; 99223; 99239; J0456; J1956; J2930; J7512; J7620

== ENCOUNTER 2022-09-23 01:41 | Outpatient (CLI) | payer MEDICARE, MEDICAID, SELFPAY ==
--- NOTE | 2022-09-23 08:30 | DI.CT_ITS ---
Exam(s) CT CHEST WO EXAM: CT CHEST WO CLINICAL HISTORY: f/u right perihilar mass and LAD, MULTIPLE PULMONARY NODULES, R91.8 TECHNIQUE: Imaging Protocol: Axial computed tomography images with coronal and sagittal reformatted images were created and reviewed CONTRAST MATERIAL: Noncontrast COMPARISON: CT CT CHEST PE CTA from 07/30/2022 CR XR PORTABLE CHEST AP from 07/30/2022 FINDINGS: Pulmonary parenchyma: Previously noted infiltrates have resolved. No dominant measurable mass. Tracheobronchial tree: No bronchiectasis or mucous plugging. Mediastinum and Shahla: Adenopathy has resolved. Pleura: No effusion or pneumothorax. Heart: The heart is not dilated. No coronary artery calcifications are seen. Aorta: Thoracic aorta non-dilated. Upper abdomen: Unremarkable. Bones: Unremarkable. Soft tissues: Unremarkable. IMPRESSION: Interval resolution of previously noted bilateral infiltrates and adenopathy. RADIATION DOSE DELIVERED: 846.81mGy.cm Total DLP DATA REPOSITORY: All CT scans at this facility are submitted to the National Radiology Data Registry (NRDR) Dose Index Registry (DIR) with the [employer] (A[employer]). RADIATION OPTIMIZATION: All CT scans at this facility use at least one of these dose optimization te chniques: automated exposure control; mA and/or kV adjustment per patient size (includes targeted exa ms where dose is matched to clinical indication); or iterative reconstruction.
== END 2022-09-23 02:01 ==
PROVIDERS: PCP Nurse Practitioner; Visit Provider Student in an Organized Health Care Education/Training Program
DX: R91.8 Other nonspecific abnormal finding of lung field (principal)
CPT/HCPCS: 71250

== ENCOUNTER 2022-11-22 03:52 | Outpatient (CLI) | payer MEDICARE, MEDICAID, SELFPAY ==
[2022-11-22] MEDS: Albuterol HFA 18 GM 200 PUFF INH IH (10:56)
[2022-11-22] MEDS: Inhaler, Assist Device 1 EACH MC (10:56)
--- NOTE | 2022-11-22 15:40 | W.PFT ---
Date of service: 11/22/22 Time of Service: 10:04 Pulmonary Function Test Result Indications: Asthma Interpretation Spirometry: There is no airflow limitation. No significant bronchodilator response. Lung Volumes: There is air trapping. Diffusion Capacity: Normal diffusion. Airway Pressure: Normal airways resistance Impression Air trapping with otherwise normal PFT's. This can represent asthma in the correct clinical context. Clinical Correlation therefore is recommended.
== END 2022-11-22 03:53 | disposition home or self-care (01) ==
LOC: RT 03:53
PROVIDERS: PCP Nurse Practitioner; Visit Provider Student in an Organized Health Care Education/Training Program
DX: J45.909 Unspecified asthma, uncomplicated (principal)
CPT/HCPCS: 94060; 94726; 94729

== ENCOUNTER 2023-01-04 10:50 | Emergency (ER) | payer MEDICARE, MEDICAID, SELFPAY ==
[2023-01-04 10:59] VITALS: BP 164/106; PULSE 100; RESP 18; TEMP 37.2; O2SAT 93
--- NOTE | 2023-01-04 11:15 | DI.RAD_ITS ---
Exam(s) XR CHEST 2V PA LATERAL EXAM: XR CHEST 2V PA LATERAL CLINICAL HISTORY: cough, wheezing, fever TECHNIQUE: 2D digital imaging was performed. COMPARISON: CT CT CHEST WO from 09/23/2022 FINDINGS: HEART: Normal size. Aorta: Not dilated. PULMONARY VASCULATURE: Normal. LUNGS: Clear. PLEURAL SPACE: No pleural effusion or pneumothorax. BONE:Unremarkable for age. IMPRESSION: No acute abnormality. DATA REPOSITORY: RADIATION DOSE DELIVERED:
[2023-01-04 11:44] LABS: Bilirubin Negative (Negative); Blood Negative (Negative); Clarity Clear (Clear); Glucose Negative (Negative); Ketones Negative (Negative); Leukocyte Esterase Negative (Negative); Nitrite Negative (Negative); Specific Gravity 1.015 (1.005-1.025); Urobilinogen 0.2 mg/dL (Up to 0.2); pH 6.5 (5-8)
[2023-01-04 12:25] VITALS: BP 126/93; PULSE 94; RESP 18; O2SAT 98
--- NOTE | 2023-01-04 12:31 | DI.VRAD_ITS ---
PROCEDURE INFORMATION: Exam: XR Chest Exam date and time: 01/04/2023 11:48 AM Age: 42 years old Clinical indication: Other: Cough, wheezing and fever TECHNIQUE: Imaging protocol: Radiologic exam of the chest. Views: 2 views. COMPARISON: CT CHEST WO 05/28/2022 13:16 FINDINGS: Lungs: Unremarkable. No consolidation. Pleural spaces: Unremarkable. No pleural effusion. No pneumothorax. Heart/Mediastinum: Unremarkable. No cardiomegaly. Bones/joints: Unremarkable for patient's age. IMPRESSION: No acute cardiopulmonary findings. Dictated and Authenticated by: Yarely Raines MD. Ordering:MONIKA Cid MD
--- NOTE | 2023-01-04 15:46 | ED.GENADUL_ITS ---
Discharge Plan Disposition Patient Disposition: Home Discharge Details Clinical Impression: Nausea & vomiting Primary Care Provider: Ivone Ruano ED Provider: Palak Shah Home Meds and New Rx's Prescriptions: New metoclopramide HCl [Reglan] 10 mg tablet 10 mg PO Q6H PRNQty: 10 0RF Continued risperidone 4 mg tablet 4 mg PO BID Patient Comments: TAKE 1 TABLET BY MOUTH TWICE DAILY pregabalin 75 mg capsule 75 mg PO TID Patient Comments: TK ONE C PO TID atorvastatin 10 mg tablet 10 mg PO QHS budesonide-formoterol [Symbicort] 160-4.5 mcg/actuation Hfa Aerosol Inhaler 2 puff inhalation BID Qty: 10.2 0RF docusate sodium [Colace] 100 mg Capsule 100 mg PO BID Qty: 60 0RF omeprazole 20 mg capsule,delayed release(DR/EC) 20 mg PO DAILY Qty: 30 0RF albuterol sulfate 90 mcg/actuation HFA aerosol inhaler 2 puff inhalation Q4H PRN PRN (Reason: shortness of breath or wheezing) Qty: 8.5 0RF methadone [Methadose] 10 mg/mL Concentrate 100 mg PO DAILY Qty: 0 0RF nicotine 21 mg/24 hr patch 24 hour 1 patch transdermal Q24H Qty: 28 0RF Hold Instructions: patient not ready to quit Discharge Instructions Instructions: Acute Nausea and Vomiting (ED) Additional Instructions: Take Reglan as needed for nausea and vomiting Should you have persistent symptoms please be reevaluated Return earlier should you have new or worsening complaints recheck with pcp on friday Referrals: Ivone Ruano [Primary Care Provider] - Discharge Data Discharge Date/Time-TO BE ENTERED AT DEPARTURE: 01/04/23 12:25 Medical Decision Making 42-year-old male with history of IV drug use presenting with report of nausea, vomiting, malaise Symptoms started yesterday. Negative COVID test in the emergency department, vitals stable, chest x-ray without acute abnormality Urinalysis without evidence of infection No hypoxia, stable vitals Supportive care recommended, Reglan Return precautions reviewed and patient expressed understanding, adamantly declines any recent IV drug use, sober for 3 years per patient HPI General Date/Time Provider Initiated Documentation: 01/04/23 11:04 . HPI Narrative: This 42-year-old gentleman presents with report of upper respiratory congestion and cough for the past 12 hours. Denies any fever or chills. Denies any nausea or vomiting. Denies any diarrhea. Denies hemoptysis or productive cough. D enies any known sick contacts. Denies sick contact denies any recent IV drug use. Denies any rashes or lesions. Has not used IV drugs for approximately 3 years, taking methadone. Related Data Home Medications Medication Instructions Recorded Confirmed pregabalin 75 mg capsule 75 mg PO TID 04/02/20 01/04/23 risperidone 4 mg tablet 4 mg PO BID 04/02/20 01/04/23 atorvastatin 10 mg tablet 10 mg PO QHS 07/30/22 01/04/23 albuterol sulfate 90 mcg/actuation 2 puff inhalation Q4H PRN PRN 07/31/22 01/04/23 aerosol inhaler shortness of breath or wheezing #8.5 grams budesonide-formoterol HFA 160 2 puff inhalation BID #10.2 grams 07/31/22 01/04/23 mcg-4.5 mcg/actuation aerosol inhaler (Symbicort) docusate sodium 100 mg capsule 100 mg PO BID #60 caps 07/31/22 01/04/23 (Colace) methadone 10 mg/mL oral 100 mg (10 mL) PO DAILY #0 mL 07/31/22 01/04/23 concentrate (Methadose) nicotine 21 mg/24 hr daily 1 patch transdermal Q24H #28 ea 07/31/22 01/04/23 transdermal patch omeprazole 20 mg capsule,delayed 20 mg PO DAILY #30 caps 07/31/22 01/04/23 release metoclopramide HCl 10 mg tablet 10 mg PO Q6H PRN #10 tabs 01/04/23 (Reglan) Previous Rx's Medication Instructions Recorded albuterol sulfate 90 mcg/actuation 2 puff inhalation Q4H PRN PRN 07/31/22 aerosol inhaler shortness of breath or wheezing #8.5 grams budesonide-formoterol HFA 160 2 puff inhalation BID #10.2 grams 07/31/22 mcg-4.5 mcg/actuation aerosol inhaler (Symbicort) docusate sodium 100 mg capsule 100 mg PO BID #60 caps 07/31/22 (Colace) methadone 10 mg/mL oral 100 mg (10 mL) PO DAILY #0 mL 07/31/22 concentrate (Methadose) nicotine 21 mg/24 hr daily 1 patch transdermal Q24H #28 ea 07/31/22 transdermal patch omeprazole 20 mg capsule,delayed 20 mg PO DAILY #30 caps 07/31/22 release metoclopramide HCl 10 mg tablet 10 mg PO Q6H PRN #10 tabs 01/04/23 (Reglan) Allergies Allergy/AdvReac Type Severity Reaction Status Date / Time amoxicillin Allergy Severe Anaphylaxsi Unverified 01/04/23 11:04 s Penicillins Allergy Severe Anaphylaxsi Unverified 01/04/23 11:04 s shrimp Allergy Severe Anaphylaxsi Unverified 01/04/23 11:04 s Sulfa (Sulfonamide Allergy Unverified 01/04/23 11:04 Antibiotics) aspirin AdvReac Mild Unverified 01/04/23 11:04 General Stated Complaint: GenMedical CHAVEZ: 3 PFSH All Active Problems (Updated 01/04/23 @ 12:20 by CHRISTIAN Pritchett) Nausea & vomiting (Acute) Asthma (Chronic) Methadone maintenance therapy patient (Acute) Constipation (Acute) Pneumonia (Acute) Asthma exacerbation (Acute) Headache (Acute) COPD exacerbation (Acute) Abdominal pain (Acute) Shortness of breath (Acute) Acute exacerbation of chronic obstructive pulmonary disease (COPD) (Acute) Polysubstance (excluding opioids) dependence (Chronic) Drug overdose (Acute) Elevated troponin I level (Acute) Polysubstance overdose (Acute) Unresponsive episode (Acute) Elevated troponin (Acute) NSTEMI (non-ST elevated myocardial infarction) (Acute) Rhabdomyolysis (Acute) Discharge planning issues (Acute) Open wnd wrist-complic (Acute) Tobacco abuse (Chronic) Bipolar disorder (Chronic) IV drug abuse (Chronic) Methamphetamine abuse (Chronic) Abscess or cellulitis of wrist (Acute) Medical History (Updated 01/04/23 @ 12:20 by CHRISTIAN Pritchett) Idiopathic thrombocytopenic purpura (ITP) Polysubstance abuse IV drug user Abscess of left upper extremity Bipolar disorder Schizoaffective disorder, chronic condition Patient is not sure which schizo disorder he has Surgical History History of repair of anterior cruciate ligament of right knee Status post incision and drainage Surgical complication involving left eye Family History Other Diabetes Heart disease Social History Smoking/Tobacco Use Status: Current every day Tobacco Type: cigarettes Smoking packs per day: 2 Smoking cigarettes per day: 40.0 Years smoked: 10 Smoking pack- years: 20.00 Counseling given: provider counseling, support medications and counseling >3 minutes Smoking risk assessment performed?: Yes Alcohol Intake: former Drug use: Never Substance use type: crack/cocaine and IV drugs Counseling given: Yes Counseling provided: provider counseling Details: methadone Do you feel safe at home: Yes Do you feel safe in your relationship?: Yes Course Vital Signs Vital signs: Vital Signs Temperature 37.2 C 01/04/23 10:59 Pulse 100 H 01/04/23 10:59 Respiratory Rate 18 01/04/23 10:59 Blood Pressure 164/106 H 01/04/23 10:59 Pulse Oximetry 93 01/04/23 10:59 Temperature 37.2 C 01/04/23 10:59 Temperature Source Oral 01/04/23 10:59 Pulse 94 H 01/04/23 12:25 Respiratory Rate 18 01/04/23 12:25 Respiratory Effort Normal, Non-Labored 01/04/23 12:25 Respiratory Depth Normal 01/04/23 12:25 Respiratory Pattern Normal 01/04/23 12:25 Blood Pressure 126/93 H 01/04/23 12:25 Blood Pressure Position Sitting 01/04/23 10:59 Pulse Oximetry 98 01/04/23 12:25 Oxygen Delivery Method Room Air 01/04/23 10:59 Oxygen Flow Rate 0 01/04/23 10:59 Lab/Test Results Lab/Test Results: Laboratory Tests Range/Units 01/04/23 11:30 Urine Color (Yellow) Yellow Urine Clarity (Clear) Clear Urine pH (5-8) 6.5 Ur Specific [place] (1.005-1.025) 1.015 Urine Protein (Negative) mg/dL Negative Urine Ketones (Negative) mg/dL Negative Urine Blood (Negative) Negative Urine Nitrite (Negative) Negative Urine Bilirubin (Negative) Negative Urine Urobilinogen (Up to 0.2) mg/dL 0.2 Ur Leukocyte Esterase (Negative) Negative Urine Glucose (Negative) mg/dL Negative
== END 2023-01-04 12:25 | disposition home or self-care (01) ==
PROVIDERS: Emergency Provider Physician Assistant; PCP Nurse Practitioner
DX: R11.2 Nausea with vomiting, unspecified (principal); R05.9 Cough, unspecified; J44.9 Chronic obstructive pulmonary disease, unspecified; I25.2 Old myocardial infarction; F17.210 Nicotine dependence, cigarettes, uncomplicated
CPT/HCPCS: 87426; 99283; 71046; 81003

== ENCOUNTER → 2023-05-06 02:46 | Outpatient (CLI) | payer MEDICARE, MEDICAID, SELFPAY ==
--- NOTE | 2023-05-06 12:50 | DI.RAD_ITS ---
Exam(s) XR CERVICAL SPINE COMP 4-5V EXAM: XR CERVICAL SPINE COMP 4-5V CLINICAL HISTORY: CERVICALGIA,M54.2. TECHNIQUE: 2D digital imaging was performed. Six images were obtained. AP, odontoid, lateral and wesley ateral oblique images were obtained. COMPARISON: No exams were available for comparison FINDINGS: The odontoid is intact. The lateral masses are well aligned. There is normal alignment of the cervi sandi spine. There are osteophytes seen at C5-C6 and C6-7 in addition to disc space narrowing. The fin dings do result in mild narrowing of the left neural foramen at C5-6 and C6-7. No acute fracture or s ubluxation is present. The remaining disc levels are unremarkable. The cervical thoracic junction i s well maintained. The prevertebral soft tissues are unremarkable. Lung apices are clear. IMPRESSION: Degenerative changes at C5-6 and C6-7 resulting in left neural foraminal narrowing. DATA REPOSITORY: RADIATION DOSE DELIVERED:
== END ==
PROVIDERS: PCP Nurse Practitioner; Visit Provider Student in an Organized Health Care Education/Training Program
DX: M50.122 Cervical disc disorder at C5-C6 level with radiculopathy (principal)
CPT/HCPCS: 72050

== ENCOUNTER 2023-07-02 14:46 | Outpatient (REF) | payer MEDICARE, MEDICAID, SELFPAY ==
[2023-07-02 16:18] LABS: Abs Immature Grans 0.03 10^3/uL (0.0-0.06); Absolute Basophil Count 0.05 10^3/uL (0.0-0.2); Absolute Eosinophil Count 0.23 10^3/uL (0.0-0.7); Absolute Lymphocyte Count 2.28 10^3/uL (1.2-3.4); Absolute Monocyte Count 0.53 10^3/uL (0.1-0.8); Basophils % 0.6; Eosinophils % 2.6; HCT 43.8 % (40.0-50.0); Immature Grans % 0.3; Lymphocytes % 26.1; MCH 28.2 pg (27.0-33.0); MCV 88 fL (80-95); MPV 9.6 fL (8.0-11.0); Monocytes % 6.1; Neutrophils % 64.3; Platelet Count 283 10^3/uL (130-400); RBC 4.97 10^6/uL (4.36-5.78); RDW 12.9 % (11.8-14.1); RDW-SD 41.8 fL; WBC 8.72 10^3/uL (4.4-10.8)
[2023-07-02 16:33] LABS: ALT 28 U/L (16-63); AST 22 U/L (15-37); Albumin 3.9 g/dL (3.4-5.0); Alkaline Phosphatase 69 U/L (46-116); Anion Gap 7.7 mmol/L (3-11); BUN 10 mg/dL (7-18); Bilirubin, Total 0.3 mg/dL (0.2-1.0); CO2 32.3 mmol/L (21.0-32.0); CREATININE 0.9 mg/dL (0.70-1.30); Calcium 8.7 mg/dL (8.5-10.1); Chloride 103 mmol/L (98-107); Estimated GFR 108.68 (mL/min/1.73m2); Glucose 114 mg/dL (74-106); Potassium 3.8 mmol/L (3.5-5.1); Sodium 143 mmol/L (136-145); TSH (W/Ref FT4) 1.21 uIU/mL (0.36-3.74); Total Protein 6.7 g/dL (6.4-8.2)
[2023-07-02 16:38] LABS: Hemoglobin A1C 5.9 % (<5.7)
== END 2023-07-02 14:47 | disposition home or self-care (01) ==
LOC: NCHCN 14:46
PROVIDERS: PCP Student in an Organized Health Care Education/Training Program; Visit Provider Student in an Organized Health Care Education/Training Program
DX: F31.9 Bipolar disorder, unspecified (principal); R35.0 Frequency of micturition
CPT/HCPCS: 80053; 83036; 84443; 85025

== ENCOUNTER 2024-01-07 15:46 | Outpatient (REF) | payer MEDICARE, MEDICAID, SELFPAY ==
[2024-01-07 19:10] LABS: Calculated LDL 86 mg/dL (<100); Cholesterol 157 mg/dL (<200); HDL Cholesterol 42 mg/dL (40-60); Triglyceride 148 mg/dL (<150)
[2024-01-09 10:26] LABS: Hepatitis C Ab w Rflx HCV PCR Negative (Negative)
== END 2024-01-07 15:47 | disposition home or self-care (01) ==
LOC: NCHCN 15:46
PROVIDERS: PCP Student in an Organized Health Care Education/Training Program; Visit Provider Student in an Organized Health Care Education/Training Program
DX: E78.5 Hyperlipidemia, unspecified (principal); Z53.20 Procedure and treatment not carried out because of patient's decision for unspecified reasons
CPT/HCPCS: 80061; 86803

== ENCOUNTER 2024-07-16 12:26 | Emergency (ER) | payer MEDICARE, MEDICAID, SELFPAY ==
[2024-07-16 12:32] VITALS: BP 146/101; PULSE 104; RESP 16; TEMP 37; O2SAT 98
[2024-07-16 12:40] VITALS: BP 146/101; PULSE 104; RESP 16; TEMP 37; O2SAT 99
--- NOTE | 2024-07-16 13:00 | DI.US_ITS ---
Exam(s) US LOWER EXTREMITY VENOUS RT EXAM: US LOWER EXTREMITY VENOUS RT CLINICAL HISTORY: Swelling, redness TECHNIQUE: Grayscale, color, and doppler imaging of the deep venous system of the right lower extrem ity was performed. COMPARISON: US US ECHOCARDIOGRAM from 04/03/2020 FINDINGS: There is no evidence of intraluminal thrombus and there is normal compression and augmentation demons trated within the common femoral vein, femoral vein, and popliteal vein. In the ipsilateral calf the interrogated veins also exhibit normal compression/ augmentation properti es. The ipsilateral saphenofemoral junction is patent. Incidentally noted are 2 benign-appearing lymph nodes in the right groin. IMPRESSION: 1. No evidence of DVT in the right lower extremity. DATA REPOSITORY:
--- NOTE | 2024-07-16 13:03 | ED.GENADUL_ITS ---
Discharge Plan Disposition Patient Disposition: Home Condition: Stable Discharge Details Clinical Impression: Cellulitis of leg, right Primary Care Provider: Luis Young ED Provider: Venecia Vazquez Home Meds and New Rx's Prescriptions: New clindamycin HCl 150 mg capsule 450 mg PO TID 7 Days Qty: 63 0RF Continued risperidone 4 mg tablet 4 mg PO BID Patient Comments: TAKE 1 TABLET BY MOUTH TWICE DAILY pregabalin 75 mg capsule 75 mg PO TID Patient Comments: TK ONE C PO TID atorvastatin 10 mg tablet 20 mg PO QHS docusate sodium [Colace] 100 mg Capsule 100 mg PO BID Qty: 60 0RF omeprazole 20 mg capsule,delayed release(DR/EC) 20 mg PO DAILY Qty: 30 0RF methadone [Methadose] 10 mg/mL Concentrate 100 mg PO DAILY Qty: 0 0RF Discharge Instructions Instructions: Cellulitis (Skin Infection), Adult ED Additional Instructions: No evidence of blood clot in your leg today. I do suspect that you do have a skin infection. Please take the antibiotic with yogurt or probiotic as directed. You are given the first IV dose here in the department. Follow up with primary care provider in 5-7 days. Return to ED sooner if any worsening redness, swelling red streaks fever chills or concerns. Please take Tylenol or Ibuprofen with food every 4-6 hours as needed for pain and swelling. Thank you for allowing us to care for you today. Referrals: Luis Young [Primary Care Provider] - 5 days HPI General Mode of arrival: ambulatory . Date/Time Provider Initiated Documentation: 07/16/24 12:46 . Limitations to Documentation: no limitations . Information obtained by: patient, RN notes reviewed and old records reviewed . HPI Narrative: 44-year-old male presents to ER with a chief complaint of right lower extremity warmth and redness and tenderness. He reports that it began approximately a week ago then a few days ago his cat jumped on his leg and the pain is increased since then. He has not been on antibiotics in the last few months, he is a daily smoker. Does take methadone denies any illicit substances or alcohol reports he has been clean for the last 5 years. He is slightly tachycardic with heart rate of 104 upon arrival and hypertensive. Does have a past medical history of high cholesterol, asthma, COPD, NSTEMI schizoaffective disorder, and idiopathic thrombocytopenia purpura. Related Data Home Medications ?Medication ?Instructions ?Recorded ?Confirmed pregabalin 75 mg capsule 75 mg PO TID 04/02/20 07/16/24 risperidone 4 mg tablet 4 mg PO BID 04/02/20 07/16/24 atorvastatin 10 mg tablet 20 mg PO QHS 07/30/22 07/16/24 docusate sodium 100 mg capsule 100 mg PO BID #60 caps 07/31/22 07/16/24 (Colace) methadone 10 mg/mL oral 100 mg (10 mL) PO DAILY #0 mL 07/31/22 07/16/24 concentrate (Methadose) omeprazole 20 mg capsule,delayed 20 mg PO DAILY #30 caps 07/31/22 07/16/24 release clindamycin HCl 150 mg capsule 450 mg (3 x 150 mg) PO TID 7 days 07/16/24 #63 caps Previous Rx's ?Medication ?Instructions ?Recorded docusate sodium 100 mg capsule 100 mg PO BID #60 caps 07/31/22 (Colace) methadone 10 mg/mL oral 100 mg (10 mL) PO DAILY #0 mL 07/31/22 concentrate (Methadose) omeprazole 20 mg capsule,delayed 20 mg PO DAILY #30 caps 07/31/22 release clindamycin HCl 150 mg capsule 450 mg (3 x 150 mg) PO TID 7 days 07/16/24 #63 caps Allergies Allergy/AdvReac Type Severity Reaction Status Date / Time amoxicillin Allergy Severe Anaphylaxsi Unverified 07/16/24 12:36 s Penicillins Allergy Severe Anaphylaxsi Unverified 07/16/24 12:36 s shrimp Allergy Severe Anaphylaxsi Unverified 07/16/24 12:36 s Sulfa (Sulfonamide Allergy Intermediate Hives Unverified 07/16/24 12:36 Antibiotics) aspirin AdvReac Intermediate Nausea Unverified 07/16/24 12:36 General Stated Complaint: Cellulitis CHAVEZ: 3 Review of Systems All systems reviewed & are unremarkable except as noted in HPI and below Integumentary/Breasts Skin/Breast: Reports erythema, Reports skin pain and Reports skin swelling Exam Extrem Upper/lower leg/hip images: 2 1. Erythema, swelling tenderness mild warmth Course Vital Signs Vital signs: Vital Signs Temperature 37.0 C 07/16/24 12:32 Pulse 104 H 07/16/24 12:32 Respiratory Rate 16 07/16/24 12:32 Blood Pressure 146/101 H 07/16/24 12:32 Pulse Oximetry 98 07/16/24 12:32 Temperature 37.0 C 07/16/24 12:32 Temperature Source Oral 07/16/24 12:32 Pulse 104 H 07/16/24 12:32 Respiratory Rate 16 07/16/24 12:32 Blood Pressure 146/101 H 07/16/24 12:32 Blood Pressure Position Sitting 07/16/24 12:32 Pulse Oximetry 98 07/16/24 12:32 Oxygen Delivery Method Room Air 07/16/24 12:32 Oxygen Flow Rate 0 07/16/24 12:32 Pain Level 6 07/16/24 12:32 Medical Decision Making 44-year-old male presents to ER with a chief complaint of right lower extremity warmth and redness and tenderness. He reports that it began approximately a week ago then a few days ago his cat jumped on his leg and the pain is increased since then. He has not been on antibiotics in the last few months, he is a daily smoker. Does take methadone denies any illicit substances or alcohol reports he has been clean for the last 5 years. He is slightly tachycardic with heart rate of 104 upon arrival and hypertensive. Does have a past medical history of high cholesterol, asthma, COPD, NSTEMI schizoaffective disorder, and idiopathic thrombocytopenia purpura. Workup ordered including CBC CMP lactate blood cultures x 2 ultrasound to rule out DVT. No evidence of DVT, some enlarged lymph nodes noted in the right groin. Will give 600 mg clindamycin IV piggyback here. Patient is allergic to penicillin and sulfa. Lactate within normal limits, no leukocytosis. Clinical picture is consistent with cellulitis. Will send home with clindamycin and follow-up with PCP. This text was generated using [employer] dictation system, please disregard any oddities of phrase or misspellings. Imaging Data Radiologic Study: Imaging: Ultrasound Radiologist's impression: EXAM: US LOWER EXTREMITY VENOUS RT CLINICAL HISTORY: Swelling, redness TECHNIQUE: Grayscale, color, and doppler imaging of the deep venous system of the right lower extremity was performed. COMPARISON: US US ECHOCARDIOGRAM from 04/03/2020 FINDINGS: There is no evidence of intraluminal thrombus and there is normal compression and augmentation demonstrated within the common femoral vein, femoral vein, and popliteal vein. In the ipsilateral calf the interrogated veins also exhibit normal compression/ augmentation properties. The ipsilateral saphenofemoral junction is patent. Incidentally noted are 2 benign-appearing lymph nodes in the right groin. IMPRESSION: 1. No evidence of DVT in the right lower extremity. Lab Data Lab results reviewed: Yes I reviewed the patient's lab results. Labs: 07/16/24 14:05 Blood Blood Culture - Pending 07/16/24 13:47 Blood Blood Culture - Pending Laboratory Tests Range/Units 07/16/24 13:47 WBC (4.4-10.8) 10^3/uL 8.97 RBC (4.36-5.78) 10^6/uL 5.54 Hgb (13.5-17.5) g/dL 15.9 Hct (40.0-50.0) % 48.8 MCV (80-95) fL 88 MCH (27.0-33.0) pg 28.7 MCHC (32.0-36.0) % 32.6 RDW (11.8-14.1) % 13.0 Plt Count (130-400) 10^3/uL 229 MPV (8.0-11.0) fL 9.2 Immature Gran % % 0.3 Neutrophils % % 69.1 Lymphocytes % % 20.2 Monocytes % % 7.2 Eosinophils % % 2.5 Basophils % % 0.7 Nucleated RBC % (0.0-0.3) % 0.0 Absolute Neutrophils (1.2-6.7) 10^3/uL 6.20 Absolute Lymphocytes (1.2-3.4) 10^3/uL 1.81 Absolute Monocytes (0.1-0.8) 10^3/uL 0.65 Absolute Eosinophils (0.0-0.7) 10^3/uL 0.22 Absolute Basophils (0.0-0.2) 10^3/uL 0.06 VBG Lactate (<or=2.0) mmol/L 1.0 Sodium (136-145) mmol/L 143 Potassium (3.5-5.1) mmol/L 3.9 Chloride (98-107) mmol/L 103 Carbon Dioxide (21.0-32.0) mmol/L 32.9 H Anion Gap (3-11) mmol/L 7.1 BUN (7-18) mg/dL 17 Creatinine (0.70-1.30) mg/dL 0.9 Est GFR (CKD-EPI 2020) (mL/min/1.73m2) 108.01 Glucose (74-106) mg/dL 119 H Calcium (8.5-10.1) mg/dL 9.2 Magnesium (1.8-2.4) mg/dL 2.4 Total Bilirubin (0.2-1.0) mg/dL 0.4 AST (15-37) U/L 20 ALT (16-63) U/L 20 Alkaline Phosphatase (46-116) U/L 74 Total Protein (6.4-8.2) g/dL 7.4 Albumin (3.4-5.0) g/dL 3.9 Quality:SDOH Health Related Social Needs: 2 No Data to Display PFSH All Active Problems (Updated 07/16/24 @ 14:23 by Venecia Vazquez NP) Cellulitis of leg, right (Acute) Asthma (Chronic) Methadone maintenance therapy patient (Acute) Constipation (Acute) Pneumonia (Acute) Asthma exacerbation (Acute) Headache (Acute) COPD exacerbation (Acute) Abdominal pain (Acute) Shortness of breath (Acute) Acute exacerbation of chronic obstructive pulmonary disease (COPD) (Acute) Polysubstance (excluding opioids) dependence (Chronic) Drug overdose (Acute) Elevated troponin I level (Acute) Polysubstance overdose (Acute) Unresponsive episode (Acute) Elevated troponin (Acute) NSTEMI (non-ST elevated myocardial infarction) (Acute) Rhabdomyolysis (Acute) Discharge planning issues (Acute) Open wnd wrist-complic (Acute) Tobacco abuse (Chronic) Bipolar disorder (Chronic) IV drug abuse (Chronic) Methamphetamine abuse (Chronic) Abscess or cellulitis of wrist (Acute) Medical History (Updated 07/16/24 @ 14:23 by Venecia Vazquez NP) Idiopathic thrombocytopenic purpura (ITP) Polysubstance abuse IV drug user Abscess of left upper extremity Bipolar disorder Schizoaffective disorder, chronic condition Patient is not sure which schizo disorder he has Surgical History History of repair of anterior cruciate ligament of right knee Status post incision and drainage Surgical complication involving left eye Family History Other Diabetes Heart disease Social History Smoking/Tobacco Use Status: Current every day Tobacco Type: cigarettes Smoking packs per day: 2 Smoking cigarettes per day: 40.0 Years smoked: 10 Smoking pack- years: 20.00 Counseling given: provider counseling, support medications and counseling >3 minutes Smoking risk assessment performed?: Yes Alcohol Intake: former Drug use: Current Sobriety Substance use type: marijuana, crack/cocaine and IV drugs Counseling given: Yes Counseling provided: provider counseling Details: methadone Do you feel safe at home: Yes Do you feel safe in your relationship?: Yes
[2024-07-16 13:57] LABS: Abs Immature Grans 0.03 10^3/uL (0.0-0.06); Absolute Basophil Count 0.06 10^3/uL (0.0-0.2); Absolute Eosinophil Count 0.22 10^3/uL (0.0-0.7); Absolute Lymphocyte Count 1.81 10^3/uL (1.2-3.4); Absolute Monocyte Count 0.65 10^3/uL (0.1-0.8); Basophils % 0.7 %; Eosinophils % 2.5 %; HCT 48.8 % (40.0-50.0); HGB 15.9 g/dL (13.5-17.5); Immature Grans % 0.3 %; Lymphocytes % 20.2 %; MCH 28.7 pg (27.0-33.0); MCHC 32.6 % (32.0-36.0); MCV 88 fL (80-95); MPV 9.2 fL (8.0-11.0); Monocytes % 7.2 %; Neutrophils % 69.1 %; Platelet Count 229 10^3/uL (130-400); RBC 5.54 10^6/uL (4.36-5.78); RDW-SD 42.3 fL; WBC 8.97 10^3/uL (4.4-10.8)
[2024-07-16] MEDS: CLINDAMYCIN 600 MG/50 ML BAG 100 MG IVPB (14:15)
[2024-07-16 14:19] LABS: ALT 20 U/L (16-63); AST 20 U/L (15-37); Albumin 3.9 g/dL (3.4-5.0); Alkaline Phosphatase 74 U/L (46-116); Anion Gap 7.1 mmol/L (3-11); BUN 17 mg/dL (7-18); Bilirubin, Total 0.4 mg/dL (0.2-1.0); CO2 32.9 mmol/L (21.0-32.0); CREATININE 0.9 mg/dL (0.70-1.30); Calcium 9.2 mg/dL (8.5-10.1); Chloride 103 mmol/L (98-107); Estimated GFR 108.01 (mL/min/1.73m2); Glucose 119 mg/dL (74-106); Magnesium 2.4 mg/dL (1.8-2.4); Potassium 3.9 mmol/L (3.5-5.1); Sodium 143 mmol/L (136-145); Total Protein 7.4 g/dL (6.4-8.2)
[2024-07-16 14:49] VITALS: BP 129/113; PULSE 89; RESP 20; TEMP 36.9; O2SAT 92
== END 2024-07-16 14:56 | disposition home or self-care (01) ==
PROVIDERS: Emergency Provider Registered Nurse Emergency; PCP Student in an Organized Health Care Education/Training Program
DX: L03.115 Cellulitis of right lower limb (principal); E78.5 Hyperlipidemia, unspecified; J44.9 Chronic obstructive pulmonary disease, unspecified; I25.2 Old myocardial infarction; F11.20 Opioid dependence, uncomplicated; F17.210 Nicotine dependence, cigarettes, uncomplicated
CPT/HCPCS: 36415; 80053; 87040; 96365; 99284; 83605; 83735; 85025; 93971; J0737

== ENCOUNTER 2024-09-06 12:02 | Emergency (ER) | payer MEDICARE, MEDICAID, SELFPAY ==
[2024-09-06 12:05] VITALS: BP 156/100; PULSE 95; RESP 20; TEMP 36.8; O2SAT 91
[2024-09-06 12:10] VITALS: BP 156/100; PULSE 95; RESP 20; TEMP 36.8; O2SAT 91
--- NOTE | 2024-09-06 12:15 | DI.US_ITS ---
Exam(s) US LOWER EXTREMITY VENOUS RT EXAM: US LOWER EXTREMITY VENOUS RT CLINICAL HISTORY: unilateral leg swelling, edema TECHNIQUE: Right lower extremity venous ultrasound performed using grayscale, color-flow, and spectral Doppler analysis. COMPARISON: US US LOWER EXTREMITY VENOUS RT from 07/16/2024 FINDINGS: The right common femoral, femoral and popliteal veins demonstrate normal compressibility, augmentation, and color Doppler. The posterior tibial and peroneal veins are patent. The saphenofemoral junction is unremarkable. There is no evidence of a [place] cyst. There are lymph nodes seen in the right in guinal region which are likely reactive. The largest measures 3.3 x 1.1 x 2.6 cm. IMPRESSION: No evidence of a right lower extremity DVT. DATA REPOSITORY:
--- NOTE | 2024-09-06 12:19 | W.ED.GENAD ---
Discharge Plan Disposition Patient Disposition: Home Condition: Stable Discharge Details Clinical Impression: Cellulitis of right lower extremity Primary Care Provider: Luis Young ED Provider: Ernst Salazar Home Meds and New Rx's Prescriptions: New cephalexin 500 mg capsule 500 mg PO QID 7 Days Qty: 28 0RF furosemide [Lasix] 40 mg tablet 40 mg PO DAILY 3 Days Qty: 3 0RF Continued risperidone 4 mg tablet 4 mg PO BID Patient Comments: TAKE 1 TABLET BY MOUTH TWICE DAILY pregabalin 75 mg capsule 75 mg PO TID Patient Comments: TK ONE C PO TID atorvastatin 10 mg tablet 20 mg PO QHS docusate sodium [Colace] 100 mg Capsule 100 mg PO BID Qty: 60 0RF omeprazole 20 mg capsule,delayed release(DR/EC) 20 mg PO DAILY Qty: 30 0RF methadone [Methadose] 10 mg/mL Concentrate 100 mg PO DAILY Qty: 0 0RF albuterol sulfate [Ventolin HFA] 90 mcg/actuation HFA aerosol inhaler 2 puff INHALATION Q6H Patient Comments: INHALE 2 PUFFS BY MOUTH EVERY 4 HOURS NEEDED Discharge Instructions Instructions: Cephalexin, Furosemide, Cellulitis (Skin Infection), Adult ED Additional Instructions: You were seen in the emergency department for the serous or liquid yellowy drainage from your anterior yeh, you have edema in your leg possibly due to kidney disease or other pathology and problems with circulation, there appears to be circulation throughout the entire leg though so I think this is mild at this time. I am going to treat you with another round of cephalexin to treat for any lingering cellulitis as well as 3 days of a diuretic or a pill that will make you pee a lot called furosemide, take these as directed. Please follow-up with your primary care provider for workup for edema should your leg not improve. Please return to the emergency department for severe increase in swelling to the leg, developing abscess with drainage of pus from any area. Referrals: Luis Young [Primary Care Provider, Medicine] HPI General Date/Time Provider Initiated Documentation: 09/06/24 12:19. HPI Narrative: 44 year-old male presents to ED today by POV/ambulating with a chief complaint of report of some yellowish serous drainage from his R anterior yeh that has resolved with onset noted this morning. Patient notes he had cellulitis in this leg but was treated- and notes its mildly swollen and firm to touch diffusely. Quality described as yellowish-brown fluid that he wiped up, has not recurred, no radiation to large fluctuant swelling, drainage of pus, bruising, varicosities, numbness, inability to ambulate. Severity is described as moderate. Palliating factors include nothing specific attempted. Provoking factors include nothing specific. Events leading up to the incident/Associated Symptoms: Patient takes no water-pills. Patient not anticoagulated. Related Data Home Medications ?Medication ?Instructions ?Recorded ?Confirmed pregabalin 75 mg capsule 75 mg PO TID 04/02/20 09/06/24 risperidone 4 mg tablet 4 mg PO BID 04/02/20 09/06/24 atorvastatin 10 mg tablet 20 mg PO QHS 07/30/22 09/06/24 docusate sodium 100 mg capsule 100 mg PO BID #60 caps 07/31/22 09/06/24 (Colace) methadone 10 mg/mL oral 100 mg (10 mL) PO DAILY #0 mL 07/31/22 09/06/24 concentrate (Methadose) omeprazole 20 mg capsule,delayed 20 mg PO DAILY #30 caps 07/31/22 09/06/24 release albuterol sulfate 90 mcg/actuation 2 puff inhalation Q6H 09/06/24 09/06/24 aerosol inhaler (Ventolin HFA) cephalexin 500 mg capsule 500 mg PO QID 7 days #28 caps 09/06/24 furosemide 40 mg tablet (Lasix) 40 mg PO DAILY 3 days #3 tabs 09/06/24 Previous Rx's ?Medication ?Instructions ?Recorded docusate sodium 100 mg capsule 100 mg PO BID #60 caps 07/31/22 (Colace) methadone 10 mg/mL oral 100 mg (10 mL) PO DAILY #0 mL 07/31/22 concentrate (Methadose) omeprazole 20 mg capsule,delayed 20 mg PO DAILY #30 caps 07/31/22 release cephalexin 500 mg capsule 500 mg PO QID 7 days #28 caps 09/06/24 furosemide 40 mg tablet (Lasix) 40 mg PO DAILY 3 days #3 tabs 09/06/24 Allergies Allergy/AdvReac Type Severity Reaction Status Date / Time amoxicillin Allergy Severe Anaphylaxsi Unverified 09/06/24 12:11 s Penicillins Allergy Severe Anaphylaxsi Unverified 09/06/24 12:11 s shrimp Allergy Severe Anaphylaxsi Unverified 09/06/24 12:11 s Sulfa (Sulfonamide Allergy Intermediate Hives Unverified 09/06/24 12:11 Antibiotics) aspirin AdvReac Intermediate Nausea Unverified 09/06/24 12:11 General Stated Complaint: Cellulitis CHAVEZ: 3 Review of Systems All systems reviewed & are unremarkable except as noted in HPI and below Exam Narrative Exam Narrative: GENERAL APPEARANCE: Well-nourished, non-toxic, awake and alert, atraumatic, no acute distress. SKIN: Warm, pink, edematous lower R extremity with some right unilateral leg swelling, skin is scaling which patient states has been that way since treatment for cellulitis, there is evidence of some serous weepage, has medial thigh tenderness in the right lower extremity Homans positive HEAD: Normocephalic, atraumatic, normal hair distribution for gender/age. EYES: Normal conjunctiva, no exudates on lids/lashes. ENT: Nares patent, no circumoral cyanosis, no facial swelling NECK: Supple, trachea midline, painless cervical ROM. LUNGS/CHEST: Non-labored respirations, normal A/P diameter, symmetrical expansion, no chest wall deformity HEART (CV/PV): 1+ R LE peripheral edema, no JVD. ABDOMEN: Soft, non-distended, no guarding. MSK: Normal ROM, no deformity to bilateral UEs or LEs, moving all extremities without weakness, no cyanosis, spine midline without tenderness, normal curvature. NEURO: Mental Status AAOx4 - alert to person, place, time, events No facial droop, no forehead involvement. Motor: No focal weakness - strength 5/5 in bilateral UEs and LEs, proximal and distal, symmetric. Sensory: sensation intact to light touch globally. Gait normal: patient ambulated without ataxia into ED room. PSYCH: euthymic, cooperative, pleasant, appropriate speech Course Vital Signs Vital signs: Vital Signs Temperature 36.8 C 09/06/24 12:05 Pulse 95 H 09/06/24 12:05 Respiratory Rate 20 09/06/24 12:05 Blood Pressure 156/100 H 09/06/24 12:05 Pulse Oximetry 91 L 09/06/24 12:05 Temperature 36.8 C 09/06/24 12:10 Pulse 95 H 09/06/24 12:10 Respiratory Rate 20 09/06/24 12:10 Blood Pressure 156/100 H 09/06/24 12:10 Blood Pressure Position Sitting 09/06/24 12:10 Pulse Oximetry 91 L 09/06/24 12:10 Oxygen Delivery Method Room Air 09/06/24 12:10 Oxygen Flow Rate 0 09/06/24 12:10 Medical Decision Making This dictation utilizes [id number] dictation software and may contain unedited grammatical errors. 44 year-old male presents to ED today by POV/ambulating with a chief complaint of report of some yellowish serous drainage from his R anterior yeh that has resolved with onset noted this morning. Patient notes he had cellulitis in this leg but was treated- and notes its mildly swollen and firm to touch diffusely. Quality described as yellowish-brown fluid that he wiped up, has not recurred, no radiation to large fluctuant swelling, drainage of pus, bruising, varicosities, numbness, inability to ambulate. Severity is described as moderate. Palliating factors include nothing specific attempted. Provoking factors include nothing specific. Events leading up to the incident/Associated Symptoms: Patient takes no water-pills. Patients' medical history: ITP, polysubstance abuse, schizoaffective disorder, asthma, current methadone use, COPD, history of NSTEMI and rhabdomyolysis. Family and social history: Noncontributory. Pertinent exam findings / vital signs include edematous lower R extremity with some right unilateral leg swelling, skin is scaling which patient states has been that way since treatment for cellulitis, there is evidence of some serous weepage, has medial thigh tenderness in the right lower extremity Homans positive, no respiratory distress, mild expiratory wheezing. Differential / pathologies of concern include DVT, cellulitis, peripheral edema, CVI. Diagnostic studies of: - US right lower extremity DVT study-no DVT seen lymph nodes seen in the right inguinal area. Interventions of: - Rx for cephalexin, 3 days of furosemide. ED Course/Assessment/Plan: 44-year-old male presents with some serous weepage from the right lower extremity, has some firmness to touch to the entire leg diffusely with medial thigh tenderness and Homans positive, had a history of cellulitis in this leg and is mildly swollen less than 2 cm by the contralateral side, ultrasound shows reactive lymphadenopathy, I plan to treat him, or a mild cellulitis of the anterior yeh and 3 days of furosemide to see if this edematous leg improved, recommend PCP follow-up, strict return criteria for any severe skin changes of the leg, developing fluctuant swellings or drainage of pus. Findings not consistent with DVT, neurovascular compromise, abscess. Disposition of cellulitis of right lower extremity. Patient verbalized understanding of the plan and return to ED criteria and engaged in shared decision making. Medical Records Medical records reviewed: Yes I reviewed the patient's medical records. Imaging Data Radiologic Study: Attestation: I personally reviewed and interpreted this imaging study as follows: Imaging: Ultrasound Radiologist's impression: EXAM: US LOWER EXTREMITY VENOUS RT CLINICAL HISTORY: unilateral leg swelling, edema TECHNIQUE: Right lower extremity venous ultrasound performed using grayscale, color-flow, and spectral Doppler analysis. COMPARISON: US US LOWER EXTREMITY VENOUS RT from 07/16/2024 FINDINGS: The right common femoral, femoral and popliteal veins demonstrate normal compressibility, augmentation, and color Doppler. The posterior tibial and peroneal veins are patent. The saphenofemoral junction is unremarkable. There is no evidence of a Winston cyst. There are lymph nodes seen in the right inguinal region which are likely reactive. The largest measures 3.3 x 1.1 x 2.6 cm. IMPRESSION: No evidence of a right lower extremity DVT. PFSH All Active Problems (Updated 09/06/24 @ 13:21 by CHRISTIAN Sanchez) Cellulitis of right lower extremity (Acute) Asthma (Chronic) Methadone maintenance therapy patient (Acute) Constipation (Acute) Pneumonia (Acute) Asthma exacerbation (Acute) Headache (Acute) COPD exacerbation (Acute) Abdominal pain (Acute) Shortness of breath (Acute) Acute exacerbation of chronic obstructive pulmonary disease (COPD) (Acute) Polysubstance (excluding opioids) dependence (Chronic) Drug overdose (Acute) Elevated troponin I level (Acute) Polysubstance overdose (Acute) Unresponsive episode (Acute) Elevated troponin (Acute) NSTEMI (non-ST elevated myocardial infarction) (Acute) Rhabdomyolysis (Acute) Discharge planning issues (Acute) Open wnd wrist-complic (Acute) Tobacco abuse (Chronic) Bipolar disorder (Chronic) IV drug abuse (Chronic) Methamphetamine abuse (Chronic) Abscess or cellulitis of wrist (Acute) Medical History (Updated 09/06/24 @ 13:21 by CHRISTIAN Sanchez) Idiopathic thrombocytopenic purpura (ITP) Polysubstance abuse IV drug user Abscess of left upper extremity Bipolar disorder Schizoaffective disorder, chronic condition Patient is not sure which schizo disorder he has Surgical History History of repair of anterior cruciate ligament of right knee Status post incision and drainage Surgical complication involving left eye Family History Other Diabetes Heart disease Social History Smoking/Tobacco Use Status: Current every day Tobacco Type: cigarettes Smoking packs per day: 2 Smoking cigarettes per day: 40.0 Years smoked: 10 Smoking pack-years: 20.00 Counseling given: provider counseling, support medications and counseling >3 minutes Smoking risk assessment performed?: Yes Alcohol Intake: former Drug use: Current Sobriety Substance use type: marijuana, crack/cocaine and IV drugs Counseling given: Yes Counseling provided: provider counseling Details: methadone Do you feel safe at home: Yes Do you feel safe in your relationship?: Yes PAWSS Have you Been Recently Intoxicated or Drunk Within the Last 30 days?: No Have you Ever Experienced Previous Episodes of Alcohol Withdrawal?: No Have you ever Experienced Withdrawal Seizures?: No Have you ever Experienced Delirium Tremens(DT)s?: No Have you ever undergone Alcohol Rehabilitation Treatment (i.e, inpt ot outpatient treatment programs)?: No Have you ever Experienced Blackouts?: No Have you ever Combined Alcohol with other Downers within the last 90 days?: No Have you ever Combined Alcohol with any other Substance of Abuse during the last 90 days?: No Positive Blood Alcohol level on Presentation? [PCS.BAL]: No Evidence of Increased Autonomic Activity (i.e. HR>120, tremor, sweating, agitation, nausea)?: No Result: 0
== END 2024-09-06 14:11 | disposition home or self-care (01) ==
PROVIDERS: Emergency Provider Physician Assistant; PCP Student in an Organized Health Care Education/Training Program
DX: L03.115 Cellulitis of right lower limb (principal); F17.210 Nicotine dependence, cigarettes, uncomplicated
CPT/HCPCS: 99284; 93971

== ENCOUNTER 2025-01-06 14:13 | Outpatient (CLI) | payer MEDICARE, MEDICAID, SELFPAY ==
--- NOTE | 2025-01-06 | DI.RAD_ITS ---
Exam(s) XR CHEST 2V PA LATERAL EXAM: XR CHEST 2V PA LATERAL CLINICAL HISTORY: COUGH R05.9 X2 WEEKS DECREASED LOWER LUNG SOUNDS MID-LATE EXPIRATORY WHEEZE TECHNIQUE: 2D digital imaging was performed. Two views. COMPARISON: CR,XR XR CHEST 2V PA LATERAL from 01/04/2023 FINDINGS: HEART: Normal size. Aorta: Not dilated. PULMONARY VASCULATURE: Normal. MEDIASTINUM: Unremarkable. LUNGS: Clear. PLEURAL SPACE: No pleural effusion or pneumothorax. BONE:Unremarkable for age. SOFT TISSUES: Unremarkable. IMPRESSION: No acute abnormality. DATA REPOSITORY: RADIATION DOSE DELIVERED:
== END 2025-01-06 14:33 ==
LOC: DI 14:15
PROVIDERS: PCP Student in an Organized Health Care Education/Training Program; Visit Provider Student in an Organized Health Care Education/Training Program
DX: R05.9 Cough, unspecified (principal)
CPT/HCPCS: 71046